=== PATIENT | male | born 1960 | race Caucasian/White ===

== ENCOUNTER 2023-02-16 15:09 | Outpatient (OUT) | payer OTHER, SELFPAY ==
[2023-02-16 16:32] LABS: Prostate Specific Antigen Dx <0.13 ng/mL (<=4.00)
== END 2023-02-16 15:10 | disposition home or self-care (01) ==
LOC: LAB 15:12
PROVIDERS: PCP Family Medicine; Visit Provider Urology
DX: Z85.46 Personal history of malignant neoplasm of prostate (principal)
CPT/HCPCS: 36415; 84153

== ENCOUNTER 2023-11-14 15:26 | Outpatient (OUT) | payer OTHER, SELFPAY ==
--- NOTE | 2023-11-14 15:32 | XR_ITS ---
[facility] [id number] Patient Name: TRINO DELGADO MRN: [id number] date: 1960 Sex: M Assigned Patient Location: [facility] Current Patient Location: Accession/Order Number: [id number] Exam Date: 11/14/2023 15:40 Report Date: 11/15/2023 09:13 At the request of: ANGEL LUIS HOLT Procedure: XR cervical spine 2-3V EXAMINATION: XR cervical spine 2-3V HISTORY: cervical somatic dysfunction M99.01 COMPARISON: No relevant comparison available. FINDINGS: BONES: 2 mm anterolisthesis of C4 on C5. Moderate degenerative spondylosis and facet osteoarthropathy DISC SPACES: Moderate multilevel disc space narrowing most significant C5-C6 PARASPINOUS: Negative. No paraspinous abnormality is seen. OTHER: Negative. XR/XR cervical spine 2-3V IMPRESSION: Degenerative changes most significant C5-C6 Electronically authenticated by: JOSSY GRACE Date: 11/15/2023 09:13
== END 2023-11-14 15:27 | disposition home or self-care (01) ==
LOC: RAD 15:28
PROVIDERS: PCP Family Medicine; Visit Provider Family Medicine
DX: M99.01 Segmental and somatic dysfunction of cervical region (principal); M50.30 Other cervical disc degeneration, unspecified cervical region
CPT/HCPCS: 72040

== ENCOUNTER 2023-12-02 15:38 | Outpatient (OUT) | payer OTHER, SELFPAY ==
[2023-12-02 17:04] LABS: Prostate Specific Antigen Dx <0.13 ng/mL (<=4.00)
== END 2023-12-02 15:39 | disposition home or self-care (01) ==
LOC: LAB 15:38
PROVIDERS: PCP Family Medicine; Visit Provider Urology
DX: Z85.46 Personal history of malignant neoplasm of prostate (principal); Z80.42 Family history of malignant neoplasm of prostate
CPT/HCPCS: 36415; 84153

== ENCOUNTER 2024-08-23 14:35 | Outpatient (OUT) | payer OTHER, SELFPAY ==
--- OUTSIDE RECORDS SUMMARY | 2024-08-23 14:52 | XMS_ITS | CCD ---
Author Organization [facility] CliniSyri Care Team Providers Care Pole Framer Machine Name Role Phone MARCO ANTONIO DENT Primary Care Physician [phone] Sheldon Huff Marco Antonio Dent Primary Care Unavailable Sheldon Huff Attending Unavailable Sheldon Huff Admitting Unavailable Misti Gagnon Attending Unavailable Misti Gagnon Admitting Unavailable Marco Antonio Dent Primary Care Unavailable Jailene, DO Bernard Primary Care Provider MD Sheldon Huff Attending Provider NINO, DR HURLEY Admitting Unavailable CHILDERS, DR HURLEY Attending Unavailable FURLOKELLY, DR MARCO ANTONIO Kinsey Referring Unavailable CHILDERS, DR HURLEY Consulting Unavailable JAILENE, DR MARCO ANTONIO Kinsey Primary Care Unavailable GUERA LE, DR TIARRA Wan Consulting Unavailabl e NINO, DR HURLEY Procedure Practitioner Nila MAN, CARINA Consulting Unavailable MECHELLE, ALBERTINA Consulting Unavailable BECKY BAR Consulting Unavailable NINO, DR HURLEY Admitting Unavailable NINO, DR HURLEY Attending Unavailable CHILDERS, DR HURLEY Consulting Unavailable CHILDERS, DR HURLEY Admitting Unavailable CHILDERS, DR HURLEY Attending Unavailable FURLONG, DR MARCO ANTONIO Kinsey Primary Care Unavailable CHILDERS, DR HURLEY Consulting Unavailable NINO, DR HURLEY Admitting Unavailable CHILDERS, DR HURLEY Attending Unavailable FURSTEFF, DR MARCO ANTONIO Kinsey Primary Care Unavailable CHILDERS, DR HURLEY Consulting Unavailable NINO, DR HURLEY Admitting Unavailable NINO, DR HURLEY Attending Unavailable FURLONG, DR MARCO ANTONIO Kinsey Primary Care Unavailable CHILDERS, DR HURLEY Consulting Unavailable RAPHAELNG, DR MARCO ANTONIO Kinsey Primary Care Unavailable PAY, DR MEDRANO Admitting Unavailable PAY, DR MEDRANO Attending Unavailable PAY, DR MEDRANO Consulting Unavailable HAY, DR MILAN Consulting Unavailable CHILDERS, DR HURLEY Admitting Unavailable CHILDERS, DR HURLEY Attending Unavailable FURLONG, DR MARCO ANTONIO Kinsey Primary Care Unavailable NINO, DR HURLEY Consulting Unavailable STEELE, DR JOSSY Stephen Consulting Unavailable ANTON ALFONSO Consulting Unavailable NINO, DR HURLEY Admitting Unavailable NINO, DR HURLEY Attending Unavailable JAILENE, DR MARCO ANTONIO Kinsey Primary Care Unavailable CHILDERS, DR HURLEY Consulting Unavailable DominguezFide lyons Unavailable Annelise Adame Unavailable Latrell CHILDERS Attending Unavailable NINO, Latrell Ding Attending Unavailable NINO, Latrell Ding Attending Unavailable JAILENE, MARCO ANTONIO Kinsey Attending Unavailable JAILENE, MARCO ANTONIO Kinsey Referring Unavailable JAILENE, MARCO ANTONIO Kinsey Primary Care Un[facility] MARCO ANTONIO Kinsey Attending Unavailable [facility] MARCO ANTONIO Kinsey Referring Unavailable [facility], MARCO ANTONIO Kinsey Primary Care Unavailable Allergies Allergy Classification Reported Allergen(s) Allergy Type Date of Onset Reaction(s) Facility (1 source) Unable to Assess Drug allergy (disorder) [facility] Repository (1 source) No Known Medication Allergies; Translations: [No Known Medication Allergies] Propensity to adverse reactions (disorder) [facility] Repository Medications Current Medications Medication Drug Class(es) Dates Sig (Normalized) Sig (Original) acetaminophen 325 mg oral tablet (12 sources) Start: 04-14-2022 take 2 tablets by mouth every six hours Acetaminophen (Tylenol) 325 mg Tablet Active 650 MG PO Q6H April 14, 2022 12:00am Start: 08-06-2021 take 2 tablets by mo uth every four hours as needed for pain Tylenol 325 mg Tab 650 mg = 2 tab(s), Oral, q4hr, PRN as needed for pain, Refills(s) 0 Start Date: 08/06/21 Status: Ordered ActivOn Joint & Muscle (8 sources) Start: 08-06-2021 ActivOn Joint & Muscle 1 application, Topical, BID Muscle pain, Refill(s) 0 Start Date: 08/06/21 Status: Ordered atorvastatin 10 mg oral tablet (20 sources) HMG-CoA Reductase Inhibitor Start: 06-18-2021 take 1 tablet by mouth once daily atorvastatin 10 mg Tab 10 mg = 1 tab(s), Oral, Daily, Refills(s) 0, High cholesterol Start Date: 06/18/21 Status: Ordered celecoxib 200 mg oral capsule (11 sources) Nonsteroidal Anti-inflammatory Drug Start: 08-06-2021 take 1 capsule by mouth once daily as needed for pain CeleBREX 200 mg Cap 200 mg = 1 cap(s), Oral, Daily, PRN Muscle pain, Refills(s) 0 Start Date: 08/06/21 Status: Ordered cephalexin 500 mg oral capsule (2 sources) Cephalosporin Antibacterial Start: 11-09-2021 take 1 capsule by mouth twice daily Keflex 500 mg Cap 500 mg = 1 cap(s), Oral, BID, # 14 cap(s), Refills(s) 0, Pharmacy: [address], [address], cm, 11/09/21 13:21:00 EDT, Height/Length Dosing, 90, kg, 11/09/21 13:21:00 EDT, Weight Dosing Start Date: 11/09/21 Status: Ordered diclofenac sodium 0.01 mg/mg topical gel (5 sources) Nonsteroidal Anti-inflammatory Drug Voltaren 1 % as directed Externally Active ibuprofen 800 mg oral tablet (1 source) Nonsteroidal Anti-inflammatory Drug Start: 04-13-2022 take 800 mg by mouth every eight hours Ibuprofen Active 800 MG PO Q8H April 13, 2022 12:00am meloxicam 7.5 mg oral tablet (6 sources) Nonsteroidal Anti-inflammatory Drug Start: 04-13-2022 take 7.5 mg by mouth once daily Meloxicam Active 7.5 MG PO Daily April 13, 2022 12:00am ActivOn Joint & Muscle (3 sources) Start: 08-06-2021 ActivOn Joint & Muscle 1 application, Topical, BID Muscle pain, Refill(s) 0 Start Date: 08/06/21 Status: Ordered Multivitamin Adult (5 sources) Multivitamin Bruno lt Active Multivitamin preparation (1 source) Start: 02-21-2023 multivitamin Daily, Refill(s) 0 Start Date: 02/21/23 Status: Ordered Sodium Phosphate, Dibasic / Sodium Phosphate, Monobasic (11 sources) Start: 08-06-2021 take 133 mL rectal route once Fleet Enema 133 mL, Rectal, Once, preop Start Date: 08/06/21 Status: Ordered Vitamin B Complex oral tablet (11 sources) Start: 08-06-2021 take 1 tablet by mouth once daily Vitamin B Complex oral tablet 1 tab(s), Oral, Daily, Prophylaxis Start Date: 08/06/21 Status: Ordered Vitamin C 100 mg oral tablet, chewable (11 sources) Start: 08-06-2021 take 1 capsule by mouth once daily Vitamin C 100 mg oral tablet, chewable 1 cap, Oral, Daily, Prophylaxis Start Date: 08/06/21 Status: Ordered Completed/Discontinued Medications Medication Drug Class(es) Dates Sig (Normalized) Sig (Original) ciprofloxacin 500 mg oral tablet (3 sources) Quinolone Antimicrobial Start: 12-22-2021 take 1 tablet by mouth once daily Cipro 500 mg Tab 500 mg = 1 tab(s), Oral, Daily, Take 1 tablet the day before the procedure and 1 tablet after the procedure, # 2 tab(s), Refills(s) 0, Pharmacy: [address], 182, cm, 11/18/21 10:56:00 EDT, Height/Length Dosing, 90, kg, 11/18/21 10:56:00... Start Date: 12/22/21 Status: Ordered Durolane (6 sources) Start: 03-02-2022 Durolane Mar, 60 mg ergocalciferol 1.25 mg oral capsule (8 sources) Provitamin D2 Compound Start: 08-06-2021 take 1 capsule by mouth once daily Vitamin D 50,000 intl units (1.25 mg) oral capsule 50,000 International_Un it = 1 cap(s), Oral, Daily, Refills(s) 0, Prophylaxis Start Date: 08/06/21 Status: Ordered 12 hr guaiFENesin 600 mg / pseudoephedrine hydrochloride 60 mg extended release oral tablet (2 sources) alpha-Adrenergic Agonist Start: 09-09-2022 take 2 tablets by mouth every twelve hours Pseudoephedrine- guaiFENesin ER 60-600 MG 2 tablets as needed Orally every 12 hrs for 7 days Sep, Not-Taking Naproxen (7 sources) Nonsteroidal Anti-inflammatory Drug Aleve Not-Taking tadalafil 20 mg oral tablet (9 sources) Phosphodiesterase 5 Inhibitor Start: 12-05-2023 take 1 tablet by mouth once daily Cialis 20 mg Tab 20 mg = 1 tab(s), Oral, Daily, take one tab daily 1 hour prior to sexual activity, # 90 tab(s), Refills(s) 3, Pharmacy: [facility] #[id number], 182, cm, 02/21/23 16:45:00 EDT, Height/Length Dosing, 96, kg, 02/21/23 16:45:00 EDT, Weight Dosing Start Date: 12/05/23 Status: Ordered Start: 02-08-2022 take 1 tablet by linda once daily Cialis 20 mg Tab 20 mg = 1 tab(s), Oral, Daily, take one tab daily 1 hour prior to sexual activity, # 90 tab(s), Refills(s) 3, Pharmacy: [facility], 182, cm, 11/18/21 10:56:00 EDT, Height/Length Dosing, 90, kg, 11/18/21 10:56:00 EDT, Weight Dosing Start Date: 02/08/22 Status: Ordered Vitamin D 50,000 intl units (1.25 mg) oral capsule (3 sources) Start: 08-06-2021 take 1 capsule by mouth once daily Vitamin D 50,000 intl units (1.25 mg) oral capsule 50,000 International_Unit = 1 cap(s), Oral, Daily, Refills(s) 0, Prophylaxis Start Date: 08/06/21 Status: Ordered vitamin e 100 unt oral capsule (11 sources) Start: 08-06-2021 take 1 capsule by mouth once daily vitamin E 100 intl units oral capsule 100 International_Unit = 1 cap(s), Oral, Daily, Prophylaxis Start Date: 08/06/21 Status: Ordered Problems Active Problems Problem Classification Problem Date Documented Date Episodic/Chronic Cancer of prostate (20 sources) Malignant tumor of prostate; Translations: [Malignant neoplasm of prostate] Onset: 10-12-2021 10-14-2021 Chronic Cancer of prostate (13 sources) Personal history of malignant neoplasm of prostate; Translations: [History of malignant neoplasm of prostate] Onset: 11-09-2021 Episodic Diabetes mellitus without complication (1 source) Prediabetes; Translations: [Prediabetes] Onset: 07-17-2024 Episodic Disorders of lipid metabolism (14 sources) Hypercholesterolemia; Translations: [Pure hypercholesterolemia, unspecified] Onset: 10-12-2021 08-06-2021 Chronic Genitourinary symptoms and ill-defined conditions (18 sources) Post-micturition incontinence ; Translations: [Stress incontinence (female) (male)] Onset: 02-08-2022 07-16-2021 Chronic Genitourinary symptoms and ill-defined conditions (15 sources) Retention of urine; Translations: [Retention of urine, unspecified] Onset: 12-02-2021 Episodic Hyperplasia of prostate (14 sources) Benign prostatic hypertrophy without outflow obstruction; Translations: [Benign prostatic hyperplasia without lower urinary tract symptoms] Onset: 11-09-2021 Chronic Immunizations and screening for infectious disease (1 source) Contact with and (suspected) exposure to other viral communicable diseases Episodic Osteoarthritis (11 sources) Osteoarthritis of knee; Translations: [Unilateral primary osteoarthritis, left knee] Onset: 01-26-2022 Resolved: 04-20-2022 Chronic Other diseases of bladder and urethra (7 sources) Male urethral stricture; Translations: [Unspecified urethral stricture, male, unspecified site] Onset: 11-11-2021 Episodic Other diseases of bladder and urethra (11 sources) Urethral stricture 11-11-2021 Episodic Other diseases of bladder and urethra (5 sources) Unspecified urethral stricture, male, unspecified site; Translations: [UNSP URETHRAL STRCT MALE UNSP SITE] Onset: 05-15-2022 Episodic Other male genital disorders (5 sources) Male erectile dysfunction, unspecified; Translations: [Erectile dysfunction] Onset: 02-08-2022 Chronic Other male genital disorders (3 sources) Secondary erectile dysfunction 05-17-2022 Chronic Other male genital disorders (12 sources) Atypical small acinar proliferation of prostate 10-14-2021 Episodic Other nervous system disorders (7 sources) Chronic pain; Translations: [Other chronic pain] Chronic Other nervous system disorders (4 sources) Other chronic pain Onset: 01-26-2022 Resolved: 04-20-2022 Chronic Other nervous system disorders (1 source) Other chronic pain; Translations: [Other chronic pain] Onset: 04-14-2022 Chronic Other screening for suspected conditions (not mental disorders or infectious disease) (13 sources) Raised prostate specific antigen; Translations: [Elevated prostate specific antigen [PSA]] Onset: 11-10-2021 07-16-2021 Episodic Other upper respiratory infections (2 sources) Acute pharyngitis, unspecified; Translations: [Acute upper respiratory infection, unspecified] Episodic Residual codes; unclassified (6 sources) Family history of cancer; Translations: [Family history of malignant neoplasm of prostate] Onset: 11-09-2021 Episodic Residual codes; unclassified (12 sources) Family history of prostate cancer 10-14-2021 Episodic Residual codes; unclassified (1 source) Family history of malignant neoplasm of prostate; Translations: [FAMILY HX MALIG NEOPLASM PROSTATE] Onset: 08-17-2022 Episodic Screening and history of mental health and substance abuse codes (12 sources) Tobacco use and exposure - finding 07-16-2021 Chronic Spondylosis; intervertebral disc disorders; other back problems (1 source) Cervical disc disorder, unspecified, unspecified cervical region; Translations: [Cervical disc disorder, unspecified, unspecified cervical region] Onset: 07-17-2024 Chronic Unclassified (1 source) R97.20 - Elevated prostate specific antigen [PSA]; Translations: [R97.20 - Elevated prostate specific antigen [PSA]] Onset: 07-09-2021 Unclassified (1 source) CONTACT W/AND (SUSP) EXPOS COVID-19; Translations: [CONTACT W/AND (SUSP) EXPOS COVID-19] Onset: 10-12-2021 Unclassified (1 source) Annual Exam Onset: 07-17-2024 Past or Other Problems Problem Classification Problem Date Documented Da te Episodic/Chronic Other aftercare (1 source) 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; Translations: [OTH [facility] CURRENT DRUG THERAPY] Onset: 12-03-2021 Episodic Other bone disease and musculoskeletal deformities (1 source) Segmental and somatic dysfunction of cervical region; Translations: [Segmental and somatic dysfunction of cervical region] Onset: 11-14-2023 Episodic Other bone disease and musculoskeletal deformities (1 source) Segmental and somatic dysfunction of thoracic region; Translations: [Segmental and somatic dysfunction of thoracic region] Onset: 11-14-2023 Episodic Other male genital disorders (1 source) Atypical small acinar proliferation of prostate; Translations: [ATYPICAL SMALL ACINAR PROLIF PROS] Onset: 11-10-2021 Episodic Other non-epithelial cancer of skin (1 source) Personal history of other malignant neoplasm of skin; Translations: [PERSONAL HX OTH MALIG NEOPLASM SKIN] Onset: 10-15-2021 Episodic Other non-traumatic joint disorders (3 sources) Pain in left knee Onset: 01-26-2022 Resolved: 04-20-2022 Episodic Screening and history of mental health and substance abuse codes (1 source) Personal history of nicotine dependence; Translations: [PERSONAL HISTORY OF NICOTINE DEPEND] Onset: 12-03-2021 Episodic Spondylosis; intervertebral disc disorders; other back problems (1 source) Neck pain Onset: 11-14-2023 Episodic Unclassified (1 source) Suspected COVID-19 virus infection Z20.822 Viral infection (1 source) COVID-19 Results Test Name Value Interpretation Reference Range Facility Ambulatory Visit Summaryon 0 12-05-2023 Ambulatory Visit Summary ERIC DELGADO :1960 Visit Date:12/05/2023 Ambulatory Visit Instructions Your Diagnosis Personal history of prostate cancer Organic impotence Urethral stricture Family history of prostate cancer Your Care Team Attending Physician - Latrell CHILDERS MD Primary Care Physician - MARCO ANTONIO DENT DO This Is Your Medications List tadalafil (Cialis 20 mg Tab) Contact prescribing physician if questions or concerns atorvastatin (atorvastatin 10 mg Tab) multivitamin Procedures Performed Cystoscopy (11/11/2021), Radical prostatectomy (10/09/2021), Transrectal biopsy of prostate (08/13/2021), Stripping of lower limb varicose veins (08/2019), Colonoscopy (05/2019), Transrectal biopsy of prostate using ultrasound (US) guidance (06/29/2018), Orchiectomy (1979), Excisional biopsy of basal cell carcinoma, History of hernia repair, Injection of knee joint. What to do next Scheduled Follow-Up Appointments Tuesday. 2024 3:00 PM EDT With: Latrell CHILDERS MD Where: [facility] Lab Reportson 12-05-2023 Lab Reports [id number] [facility] Patient Educationon 12-05-19 24 Patient Education Oncology Prostate Cancer Screening Prostate cancer screening is testing that is done to check for the presence of prostate cancer in men. The prostate gland is a walnut-sized gland that is located below the bladder and in front of the rectum in males. The function of the prostate is to add fluid to semen during ejaculation. Prostate cancer is one of the most common types of cancer in men. Who should have prostate cancer screening? Screening recommendations vary based on age and other risk factors, as well as between the professional organizations who make the recommendations. In general, screening is recommended if: ? You are age 50 to 70 and have an average risk for prostate cancer. You should talk with your health care provider about your need for screening and how often screening should be done. Because most prostate cancers are slow growing and will not cause , screening in this age group is generally reserved for men who have a 10- to 15-year life expectancy. ? You are younger than age 50, and you have these risk factors: ? Having a father, brother, or uncle who has been diagnosed with prostate cancer. The risk is higher if your family member's cancer occurred at an early age or if you have multiple family members with prostate cancer at an early age. ? Being a male who is Black or is of [place] or sub-Saharan descent. In general, screening is not recommended if: ? You are younger than age 40. ? You are between the ages of 40 and 49 and you have no risk factors. ? You are 70 years of age or older. At this age, the risks that screening can cause are greater than the benefits that it may provide. If you are at high risk for prostate cancer, your health care provider may recommend that you have screenings more often or that you start screening at a younger age. How is screening for prostate cancer done? The recommended prostate cancer screening test is a blood test called the prostate-specific antigen (PSA) test. PSA is a protein that is made in the prostate. As you age, your prostate naturally produces more PSA. Abnormally high PSA levels may be caused by: ? Prostate cancer. ? An enlarged prostate that is not caused by cancer (benign prostatic hyperplasia, or BPH). This condition is very common in older men. ? A prostate gland infection (prostatitis) or urinary tract infection. ? Certain medicines such as male hormones (like testosterone) or other medicines that raise testosterone levels. A rectal exam may be done as part of prostate cancer screening to help provide information about the size of your prostate gland. When a rectal exam is performed, it should be done after the PSA level is drawn to avoid any effect on the results. Depending on the PSA results, you may need more tests, such as: ? A physical exam to check the size of your prostate gland, if not done as part of screening. ? Blood and imaging tests. ? A procedure to remove tissue samples from your prostate gland for testing (biopsy). This is the only way to know for certain if you have prostate cancer. What are the benefits of prostate cancer screening? ? Screening can help to identify cancer at an early stage, before symptoms start and when the cancer can be treated more easily. ? There is a small chance that screening may lower your risk of dying from prostate cancer. The chance is small because prostate cancer is a slow-growing cancer, and most men with prostate cancer from a different cause. What are the risks of prostate cancer screening? The main risk of prostate cancer screening is diagnosing and treating prostate cancer that would never have caused any symptoms or problems. This is called overdiagnosisand overtreatment. PSA screening cannot tell you if your PSA is high due to cancer or a different cause. A prostate biopsy is the only procedure to diagnose prostate cancer. Even the results of a biopsy may not tell you if your cancer needs to be treated. Slow-growing prostate cancer may not need any treatment other than monitoring, so diagnosing and treating it may cause unnecessary stress or other side effects. Questions to ask your health care provider ? When should I start prostate cancer screening? ? What is my risk for prostate cancer? ? How often do I need screening? ? What type of screening tests do I need? ? How do I get my test results? ? What do my results mean? ? Do I need treatment? Where to find more information ? The [employer]: www.cancer.org ? [employer]: www.auanet.org Contact a health care provider if: ? You have difficulty urinating. ? You have pain when you urinate or ejaculate. ? You have blood in your urine or semen. ? You have pain in your back or in the area of your prostate. Summary ? Prostate cancer is a common type of cancer in men. The prostate gland is located below the bladder and in front of the rectum. This gland adds flu (more content not included)... Normal [facility] Urology Office/Clinic Noteon 12-05-2023 Urology Office/Clinic Note Chief Complaint 6 months w/ PSA HPI Staff 6m PSA DX: Personal Hx of Prostate Cancer, Organic Impotence, Urethral Stricture, Proteinuria, Family Hx of Prostate Cancer (brother) PSA: 12/31/19 - 4.12 06/03/21 - 5.28 11/05/21 - <0.05 05/13/22 - <0.13 08/11/22 - <0.13 02/16/23 - <0.13 12/02/23 - <0.13 S/p Radical Prostatectomy was done 10/09/21. Cialis 20mg qd. Pt states that he has not been taking this recently Dysuria: no Incomplete bladder emptying: pt feels he is emptying well Hematuria: no Frequency: no Urgency: no Nocturia: 0-1x Stream: good steady stream Leaking: very little Post void dripping: very little Wearing pads/ Depends: wears a pantyliner and does not have to change all day Urge incontinence: no Stress incontinence: no Incontinence without Sensory Awareness: no Abdominal pain: no Flank pain: back pain but believes it is muscular Sexual complaints: no History of Present Illness Tests reviewed: reviewed UA, PSA I have reviewed the previous health record information and history for this patient from Dr. Childers. I have reviewed and verified the staff HPI to be accurate for this encounter. Review of Systems ROS - Provider Constitutional: denies weight loss, denies hot flashes. Eyes: denies eye problems. Gastrointestinal: denies nausea, denies vomiting. Cardiovascular: denies chest pain or angina. Integumentary: no dryness Musculoskeletal: denies musculoskeletal symptoms. ENMT: denies otolaryngeal symptoms. Respiratory: no shortness of breath. Heme/Lymph: denies easy bleeding tendency, denies easy bruising tendency. Psychiatric: no confusion, no anxiety. Genitourinary: See HPI. Physical Exam General Appearance: alert, no distress, well nourished, well developed male. Genitourinary: normal scrotum, normal testes, normal urethra, normal epididymis, normal vas deferens/spermatic cord. Flank Pain: none. Bladder: nonpalpable. Assessment/Plan 1. Personal history of prostate cancer (Z85.46: Personal history of malignant neoplasm of prostate) PSA: 12/31/19 - 4.12 06/03/21 - 5.28 11/05/21 - <0.05 05/13/22 - <0.13 08/11/22 - <0.13 02/16/23 - <0.13 12/02/23 - <0.13 S/p Radical Prostatectomy 10/09/[address] Childers. UA today negative for blood and infection. Wears a liner just for protection. Not voicing any urinary habit complaints. PSA remains stable and undetectable. Will continue to monitor. 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 Not sexually active. -Take Cialis prn 3. Urethral stricture (N35.919: Unspecified urethral stricture, male, unspecified site) S/p Cysto/UD 12/02/21. 4. Family history of prostate cancer (Z80.42: Family history of malignant neoplasm of prostate) Brother. [1] Follow-up With When Contact Information NINO BARKLEY, Latrell Ding, URL [facility] [address], [place] [address] [phone] Additional Instructions: 1 yr w/ PSA Patient Education Prostate Cancer Screening I, Miya Cueva, personally scribed for Dr. Childers on 12/05/2023 16:04:19. . Documentation recorded by the scribe, Miya Cueva, accurately reflects the services(s) I performed and decisions made by me. Authenticated by Dr. Childers on 12/05/2023 16:05:55. Problem List/Past Medical History Ongoing Atypical small acinar proliferation of prostate BPH without urinary obstruction Elevated PSA Family history of prostate cancer High blood cholesterol Hx of smoking Organic impotence Personal history of prostate cancer Post-void dribbling Prostate cancer Proteinuria Stress incontinence Urethral stricture Urinary retention Historical No qualifying data Procedure/Surgical History Cystoscopy (11/11/2021), Radical prostatectomy (10/09/2021), Transrectal biopsy of prostate (08/13/2021), Stripping of lower limb varicose veins (08/2019), Colonoscopy (05/2019), Transrectal biopsy of prostate using ultrasound (US) guidance (06/29/2018), Orchiectomy (1979), Excisional biopsy of basal cell carcinoma, History of hernia repair, Injection of knee joint. Medications atorvastatin 10 mg Tab, 10 mg= 1 tab(s), Oral, Daily Cialis 20 mg Tab, 20 mg= 1 tab(s), Oral, Daily, 3 refills multivitamin, Daily Allergies No Known Medication Allergies Social History Alcohol - High Risk, 08/06/2021 Current, Beer, Daily, 08/06/2021 Substance Abuse - Medium Risk, 08/06/2021 Current, Marijuana, 1-2 times per week, 08/06/2021 Tobacco - Denies Tobacco Use, 08/06/2021 Former smoker, quit more than 30 days ago Tobacco Use:. Never Smokeless Tobacco Use:. Household tobacco concerns: No., 12/05/2023 Family History Cancer: Father. Primary malignant neoplasm of prostate: Brother. Stroke: Mother. Immunizations Vaccine Date Status influenza virus vaccine (more content not included)... [facility] Comment on above: Result Comment: Elec tronically Signed By: Latrell CHILDERS MD\.br\Date and Time Signed: 12/05/23 16:06 EDT\.br\Electronically Co-Signed By: Miya Cueva\.br\Date and Time Co-Signed: 12/05/23 16:04 EDT COVID + FLU Quick Testingon 07-04-2023 SARS-CoV-2 (COVID-19) RNA SIENNA+probe Ql (Unsp spec) Positive [facility] [employer] Other COVID + FLU Quick Testing Negative [facility] Other Patient Educationon 02-22-20 23 Patient Education Oncology Prostate Cancer The prostate is a small gland that produces fluid that makes up semen (seminal fluid). It is located below the bladder in men, in front of the rectum. Prostate cancer is the abnormal growth of cells in the prostate gland. What are the causes? The exact cause of this condition is not known. What increases the risk? You are more likely to develop this condition if: ? You are 65 years of age or older. ? You have a family history of prostate cancer. ? You have a family history of breast and ovarian cancer. ? You have genes that are passed from parent to child (inherited), such as BRCA1 and BRCA2. ? You have Henning syndrome. men and men of descent are diagnosed with prostate cancer at higher rates than other men. The reasons for this are not well understood and are likely due to a combination of genetic and environmental factors. What are the signs or symptoms? Symptoms of this condition include: ? Problems with urination. This may include: ? A weak or interrupted flow of urine. ? Trouble starting or stopping urination. ? Trouble emptying the bladder all the way. ? The need to urinate more often, especially at night. ? Blood in urine or semen. ? Persistent pain or discomfort in the lower back, lower abdomen, or hips. ? Trouble getting an erection. ? Weakness or numbness in the legs or feet. How is this diagnosed? This condition can be diagnosed with: ? A digital rectal exam. For this exam, a health care provider inserts a gloved finger into the rectum to feel the prostate gland. ? A blood test called a prostate-specific antigen (PSA) test. ? A procedure in which a sample of tissue is taken from the prostate and checked under a microscope (prostate biopsy). ? An imaging test called transrectal ultrasonography. Once the condition is diagnosed, tests will be done to determine how far the cancer has spread. This is called staging the cancer. Staging may involve imaging tests, such as a bone scan, CT scan, PET scan, or MRI. Stages of prostate cancer The stages of prostate cancer are as follows: ? Stage 1 (I). At this stage, the cancer is found in the prostate only. The cancer is not visible on imaging tests, and it is usually found by accident, such as during prostate surgery. ? Stage 2 (II). At this stage, the cancer is more advanced than it is in stage 1, but the cancer has not spread outside the prostate. ? Stage 3 (III). At this stage, the cancer has spread beyond the outer layer of the prostate to nearby tissues. The cancer may be found in the seminal vesicles, which are near the bladder and the prostate. ? Stage 4 (IV). At this stage, the cancer has spread to other parts of the body, such as the lymph nodes, bones, bladder, rectum, liver, or lungs. Prostate cancer grading Prostate cancer is also graded according to how the cancer cells look under a microscope. This is called the Constable score and the total score can range from 6?10, indicating how likely it is that the cancer will spread (metastasize) to other parts of the body. The higher the score, the greater the likelihood that the cancer will spread. ? Constable 6 or lower: This indicates that the cancer cells look similar to normal prostate cells (well differentiated). ? Constable 7: This indicates that the cancer cells look somewhat similar to normal prostate cells (moderately differentiated). ? Constable 8, 9, or 10: This indicates that the cancer cells look very different than normal prostate cells (poorly differentiated). How is this treated? Treatment for this condition depends on several factors, including the stage of the cancer, your age, personal preferences, and your overall health. Talk with your health care provider about treatment options that are recommended for you. Common treatments include: ? Observation for early stage prostate cancer (active surveillance). This involves having exams, blood tests, and in some cases, more biopsies. For some men, this is the only treatment needed. ? Surgery. Types of surgeries include: ? Open surgery (radical prostatectomy). In this surgery, a larger incision is made to remove the prostate. ? A laparoscopic radical prostatectomy. This is a surgery to remove the prostate and lymph nodes through several small incisions. It is often referred to as a minimally invasive surgery. ? A robotic radical prostatectomy. This is laparoscopic surgery to remove the prostate and lymph nodes with the help of robotic arms that are controlled by the surgeon. ? Cryoablation. This is surgery to freeze and destroy cancer cells. ? Radiation treatment. Types of radiation treatment include: ? External beam radiation. This type aims beams of radiation from outside the body at the prostate to destroy cancerous cells. ? Brachytherapy. This type uses radioactive needles, seeds, wires, or tubes that are implanted into the prostate gland. Like external be (more content not included)... [facility] Urology Office/Clinic Noteon 02-21-2023 Urology Office/Clinic Note Chief Complaint 6m PSA HPI Staff 6m PSA Hx of Prostate Cancer, Organic Impotence, Urethral Stricture & Fam Hx of Prostate Cancer (brother). S/P Radical Prostatectomy 10/09/21 *Cialis 20mg QD therapy. PSA 02/16/23- <0.13 Getting up 1x/night Denies all other urinary complaints. History of Present Illness Tests reviewed: reviewed UA, PSA I have reviewed the previous health record information and history for this patient from Dr. Childers. I have reviewed and verified the staff HPI to be accurate for this encounter. There have been no associated fever, chills, flank pain, or blood in the urine. Denies any urinary infections since last encounter. Review of Systems PHQ Score Initial Depression Screen Score: 0 ROS - Provider Constitutional: denies weight loss, denies hot flashes. Eyes: denies eye problems. Gastrointestinal: denies nausea, denies vomiting. Cardiovascular: denies chest pain or angina. Integumentary: no dryness Musculoskeletal: denies musculoskeletal symptoms. ENMT: denies otolaryngeal symptoms. Respiratory: no shortness of breath. Heme/Lymph: denies easy bleeding tendency, denies easy bruising tendency. Psychiatric: no confusion, no anxiety. Genitourinary: See HPI. Physical Exam Vitals & Measurements HR: 72(Peripheral) RR: 16 BP: 130/76 HT: 72 in HT: 182 cm WT: 96 kg WT: 211.2 lb BMI: 28.98 General Appearance: alert, no distress, well nourished, well developed male. Genitourinary: normal scrotum, normal testes, normal urethra, normal epididymis, normal vas deferens/spermatic cord. Flank Pain: none. Bladder: nonpalpable. Assessment/Plan 1. Personal history of prostate cancer (Z85.46: Personal history of malignant neoplasm of prostate) PSA: 12/31/19 - 4.12 06/03/21 - 5.28 11/05/21 - <0.05 05/13/22 - <0.13 08/11/22 - <0.13 02/16/23 - <0.13 S/p Radical Prostatectomy was done 10/09/21. Will continue to monitor PSA every 6 months. 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 Reports his work life has kept him too busy and he is not concerned with sexual activity. 3. Urethral stricture (N35.919: Unspecified urethral stricture, male, unspecified site) S/p Cysto/UD done 12/02/21. UA today negative for blood and infection. Still feels he empties completely. Pt states he continues wearing pads as a precautionary measure but has not really needed them. All questions/concerns were discussed. Pt to call the office if he encounters any issues prior. Pt acknowledges understanding. 4. Family history of prostate cancer (Z80.42: Family history of malignant neoplasm of prostate) Brother. [1] 5. Proteinuria (R80.9: Proteinuria, unspecified) UA today shows 30mg/dL protein. Follow-up With When Contact Information NINO BARKLEY, Latrell Ding, [facility] [address], [place] [address] [phone] Additional Instructions: 6 mos w/ PSA Patient Education Prostate Cancer I, Miya Cueva, personally scribed for Dr. Childers on 02/21/2023 17:48:09. . Documentation recorded by the scribe, Miya Cueva, accurately reflects the services(s) I performed and decisions made by me. Authenticated by Dr. Cihlders on 02/21/2023 17:49:43. Problem List/Past Medical History Ongoing Atypical small acinar proliferation of prostate BPH without urinary obstruction Elevated PSA Family history of prostate cancer High blood cholesterol Hx of smoking Organic impotence Personal history of prostate cancer Post-void dribbling Prostate cancer Proteinuria Stress incontinence Urethral stricture Urinary retention Historical No qualifying data Procedure/Surgical History Cystoscopy (11/11/2021), Radical prostatectomy (10/09/2021), Transrectal biopsy of prostate (08/13/2021), Stripping of lower limb varicose veins (08/2019), Colonoscopy (05/2019), Transrectal biopsy of prostate using ultrasound (US) guidance (06/29/2018), Orchiectomy (1979), History of hernia repair, Injection of knee joint. Medications atorvastatin 10 mg Tab, 10 mg= 1 tab(s), Oral, Daily Cialis 20 mg Tab, 20 mg= 1 tab(s), Oral, Daily, 3 refills multivitamin, Daily Allergies No Known Medication Allergies Social History Alcohol - High Risk, 08/06/2021 Current, Beer, Daily, 08/06/2021 Substance Abuse - Medium Risk, 08/06/2021 Current, Marijuana, 1-2 times per week, 08/06/2021 Tobacco - Denies Tobacco Use, 08/06/2021 Former smoker, quit more than 30 days ago Tobacco Use:. Never Smokeless Tobacco Use:. Household tobacco concerns: No., 02/21/2023 Family History Cancer: Father. Primary malignant neoplasm of prostate: Brother. Stroke: Mother. Immunizations Vaccine Date Status influenza virus vaccine, inactivated 05/20/2022 Recorded SARS-CoV-2 (COVID-19) mRNA-1273 vaccine 07/06/2021 Recorded SARS-CoV-2 (COVID-19) Ad26 vaccine 07/2021 Recorded influenza virus vacci (more content not included)... [facility] Comment on above: Result Comment: Elec tronically Signed By: Latrell CHILDERS MD\.br\Date and Time Signed: 02/21/23 17:49 EDT\.br\Electronically Co-Signed By: Miya Cueva\.br\Date and Time Co-Signed: 02/21/23 17:48 EDT Lab Report[facility] 02-18-2023 Lab Reports [id number] [facility] COVID + FLU Quick Testingon 09-09-2022 SARS-CoV-2 (COVID-19) RNA SIENNA+probe Ql (Unsp spec) Negative [facility] [employer] Other COVID + FLU Quick Testing Negative [facility] [employer] Other Quick Strepon 09-09-2022 S. pyogenes Org specific cx Ql (Throat) Negative [facility] [employer] Other Quick Strep [facility] [employer] Other COMPREHENSIVE METABOLIC PANE [facility] 12-10-2021 Albumin [Mass/Vol] 4.4 g/dL Normal 3.6-5.1 [facility] Comment on above: Performed By: #### 7 917, [id number] #### [facility] [address], [address] [place] [id number] International Sourcing Manager: Felipe Miranda MD Albumin/Globulin [Mass ratio] 2.2 {ratio} Normal 1.0-2.5 [facility] Comment on above: Performed By: #### 7 484, 35235 #### [facility] of [place] [address] International Sourcing Manager: Felipe Miranda MD ALP [Catalytic activity/Vol] 52 U/L Normal 35-144 [facility] Comment on above: Performed By: #### 7 600, 10889 #### [facility] of [address], [address] [place] [address] International Sourcing Manager: Felipe Miranda MD ALT [Catalytic activity/Vol] 13 U/L Normal 9-46 [facility] Comment on above: Performed By: #### 7 600, 11437 #### [facility] [place] [address] International Sourcing Manager: Felipe Miranda MD AST [Catalytic activity/Vol] 18 U/L Normal 10-35 [facility] Comment on above: Performed By: #### 7 600, 64008 #### [facility] [place] [address] International Sourcing Manager: Felipe Miranda MD Bilirubin [Mass/Vol] 0.9 mg/dL Normal 0.2-1.2 [facility] Comment on above: Performed By: #### 7 600, 91371 #### [facility] [place] [address] International Sourcing Manager: Felipe Miranda MD BUN/CREATININE RATIO NOT APPLICABLE Normal 6-22 [facility] Comment on above: Performed By: #### 7 600, 61731 #### [facility] [place] [address] International Sourcing Manager: Felipe Miranda MD Calcium [Mass/Vol] 9.4 mg/dL Normal 8.6-10.3 [facility] Comment on above: Performed By: #### 7 600, 96041 #### [facility] [place] [address] International Sourcing Manager: Felipe Miranda MD Chloride [Moles/Vol] 108 mmol/L Normal 98-110 [facility] Comment on above: Performed By: #### 7 600, 05030 #### [facility] [place] [address] International Sourcing Manager: Felipe Miranda MD CO2 [Moles/Vol] 28 mmol/L Normal 20-32 [facility] Comment on above: Performed By: #### 7 600, 78048 #### [facility] [place] [address] International Sourcing Manager: Felipe Miranda MD Creatinine [Mass/Vol] 0.88 mg/dL Normal 0.70-1.33 [facility] Comment on above: Result Comment: For patients >49 years of age, the reference limit for Creatinine is approximately 13% higher for people identified as -Welsh. Performed By: #### 7 600, 24416 #### [facility] [place] [address] International Sourcing Manager: Felipe Miranda MD eGFR NON-AFR. GREEK 95 mL/min/1.73m2 Normal > OR = 60 [facility] Comment on above: Performed By: #### 7 600, 97198 #### [facility] [place] [address] International Sourcing Manager: Felipe Miranda MD GFR/1.73 sq M.predicted among blacks MDRD (S/P/Bld) [Vol rate/Area] 110 mL/min/{1.73_m2} Normal > OR = 60 [facility] Comment on above: Performed By: #### 7 600, 10861 #### [facility] [place] [address] International Sourcing Manager: Felipe Miranda MD Globulin (S) [Mass/Vol] 2.0 g/dL Normal 1.9-3.7 [facility] Comment on above: Performed By: #### 7 600, 59624 #### [facility] [place] [address] International Sourcing Manager: Felipe Miranda MD Glucose [Mass/Vol] 99 mg/dL Normal 65-99 [facility] Comment on above: Result Comment: Fasting reference interval Performed By: #### 7 600, 98598 #### [facility] of [address], [address] [place] [address] International Sourcing Manager: Felipe Miranda MD Potassium [Moles/Vol] 5.5 mmol/L High 3.5-5.3 [facility] Comment on above: Performed By: #### 7 600, 58428 #### [facility] of [address], [address] [place] [address] International Sourcing Manager: Felipe Miranda MD Protein [Mass/Vol] 6.4 g/dL Normal 6.1-8.1 [facility] Comment on above: Performed By: #### 7 600, 13512 #### [facility] of [address], [address] [place] [address] International Sourcing Manager: Felipe Miranda MD Sodium [Moles/Vol] 142 mmol/L Normal 135-146 [facility] Comment on above: Performed By: #### 7 600, 12567 #### [facility] of [address], [address] [place] [address] International Sourcing Manager: Felipe Miranda MD Urea nitrogen [Mass/Vol] 14 mg/dL Normal 7-25 [facility] Comment on above: Performed By: #### 7 600, 51984 #### [facility] [place] [address] International Sourcing Manager: Felipe Miranda MD LIPID PANEL, [facility] 11-29 Cholesterol [Mass/Vol] 106 mg/dL Normal <200 [facility] Comment on above: Performed By: #### 7 600, 26817 #### [facility] of [address], [address] [place] [address] International Sourcing Manager: Felipe Miranda MD Cholesterol in HDL [Mass/Vol] 43 mg/dL Normal > OR = 40 [facility] Comment on above: Performed By: #### 7 600, 79506 #### [facility] of [address], [address] [place] [address] International Sourcing Manager: Felipe Miranda MD Cholesterol in LDL [Mass/Vol] 48 mg/dL Normal [facility] Comment on above: Result Comment: Refe rence range: <100 Desirable range <100 mg/dL for primary prevention; <70 mg/dL for patients with CHD or diabetic patients with > or = 2 CHD risk factors. LDL-C is now calculated using the Gris calculation, which is a validated novel method providing better accuracy than the Friedewald equation in the estimation of LDL-C. Georgi SS et al. AMELIE. 2013;310(19): 6240-6903 (http://education.[employer]/faq/FFA562) Performed By: #### 7 600, 72836 #### [facility] [place] [address] International Sourcing Manager: Felipe Miranda MD Cholesterol.total/C holesterol in HDL [Mass ratio] 2.5 {ratio} Normal <5.0 [facility] Comment on above: Performed By: #### 7 600, 32840 #### [facility] [place] [address] International Sourcing Manager: Felipe Miranda MD NON HDL CHOLESTEROL 63 mg/dL (calc) Normal <130 [facility] Comment on above: Result Comment: For patients with diabetes plus 1 major ASCVD risk factor, treating to a non-HDL-C goal of <100 mg/dL (LDL-C of <70 mg/dL) is considered a therapeutic option. Performed By: #### 7 600, 10507 #### [facility] [address], [address] [place] [address] International Sourcing Manager: Felipe Miranda MD Triglyceride [Mass/Vol] 70 mg/dL Normal <150 [facility] Comment on above: Performed By: #### 7 600, 44486 #### [facility] [place] [address] International Sourcing Manager: Felipe Miranda MD PRBC LEUKOREDUCEDon 10-12-19 ABO and Rh group Nom (Bld) Cross Match Result Compatible Unit Blood Type O Pos Unit Number [id number] Status Information Released Specimen Exp Date [id number] Product ID Red Blood Cells Product Code [id number] Cross Match Result Compatible Unit Blood Type O Pos Unit Number [id number] Status Information Released Specimen Exp Date Product ID Red Blood Cells Product Code [id number] Normal [facility] Comment on above: Performed By: #### C BC #### [facility] [address] [place] [address] Dr. Florina Humphrey CBC AUTO DIFFon 10-10-2021 BASO # 0.0 103/ul Normal 0.0-0.1 [facility] Comment on above: Performed By: #### C BC #### [facility] [address] [place] [address] Dr. Florina Humphrey Basophils/100 WBC (Bld) 0.1 % Critically low 0.2-2.0 [facility] Comment on above: Performed By: #### C BC #### [facility] [address] [place] [address] Dr. Florina Humphrey EO # 0.0 103/ul Normal 0.0-0.7 [facility] Comment on above: Performed By: #### C BC #### [facility] [address] [place] [address] Dr. Florina Humphrey Eosinophils/100 WBC (Bld) 0.0 % Critically low 0.9-7.0 [facility] Comment on above: Performed By: #### C BC #### [facility] [address] [place] [address] Dr. Florina Humphrey Erythrocyte distribution width (RBC) [Ratio] 12.5 % Normal 11.0-15.0 [facility] Comment on above: Performed By: #### C BC #### [facility] [address] [place] [address] Dr. Florina Humphrey Hematocrit (Bld) [Volume fraction] 25.6 % Critically low 42.0-54.0 [facility] Comment on above: Performed By: #### C BC #### [facility] [address] [place] [address] Dr. Florina Humphrey Hemoglobin (Bld) [Mass/Vol] 8.7 g/dL Critically low 14.0-18.0 [facility] Comment on above: Result Comment: flui ds given Performed By: #### C BC #### [facility] [address] [place] [address] Dr. Florina Humphrey IG # 0.02 10e3/ul Normal 0.00-0.03 [facility] Comment on above: Performed By: #### C BC #### [facility] [address] [place] [address] Dr. Florina Humphrey IG % 0.2 % Normal 0.0-0.5 [facility] Comment on above: Performed By: #### C BC #### [facility] [address] [place] [address] Dr. Florina Humphrey LYMPH # 0.8 103/ul Critically low 1.2-3.8 [facility] Comment on above: Performed By: #### C BC #### [facility] [address] [place] [address] Dr. Florina Humphrey Lymphocytes/100 WBC (Bld) 9.4 % Critically low 20.5-60.0 [facility] Comment on above: Performed By: #### C BC #### [facility] [address] [place] [address] Dr. Florina Humphrey MANUAL DIFF REQ NO Normal [facility] Comment on above: Performed By: #### C BC #### [facility] [address] [place] [address] Dr. Florina Humphrey MCH (RBC) [Entitic mass] 32.1 pg Normal 25.9-34.0 [facility] Comment on above: Performed By: #### C BC #### [facility] [address] [place] [address] Dr. Florina Humphrey MCHC (RBC) [Mass/Vol] 34.0 g/dL Normal 29.9-35.2 [facility] Comment on above: Performed By: #### C BC #### [facility] [address] [place] [address] Dr. Florina Humphrey MCV (RBC) [Entitic vol] 94.5 fL Critically high 80.0-94.0 [facility] Comment on above: Performed By: #### C BC #### [facility] [address] [address] [address] Florina Humphrey MONO # 0.7 103/ul Normal 0.3-0.8 [facility] Comment on above: Performed By: #### C BC #### [facility] [address] [place] [address] [address] Florina Humphrey Monocytes/100 WBC (Bld) 8.3 % Normal 1.7-12.0 [facility] Comment on above: Performed By: #### C BC #### [facility] [address] [place] [address] Dr. Florina Humphrey NEUT # 6.9 103/ul Critically high 1.4-6.5 The [facility] Comment on above: Performed By: #### C BC #### [facility] [address] [place] [address] Dr. Florina Humphrey Neutrophils/100 WBC (Bld) 82.0 % Critically high 43.0-75.0 [facility] Comment on above: Performed By: #### C BC #### [facility] [address] [place] [address] Dr. Florina Humphrey Platelet mean volume (Bld) [Entitic vol] 10.8 fL Normal 9.5-13.5 [facility] Comment on above: Performed By: #### C BC #### [facility] [address] [place] [address] Dr. Florina Humphrey PLT 191 103/ul Normal 150-450 The [facility] Comment on above: Performed By: #### C BC #### [facility] [address] [place] [address] Dr. Florina Humphrey RBC 2.71 106/ul Critically low 4.70-6.10 The [facility] Comment on above: Performed By: #### C BC #### [facility] [address] [place] [address] Dr. Florina Humphrey WBC 8.4 103/ul Normal 4.0-11.0 The [facility] Comment on above: Performed By: #### C BC #### [facility] [address] [address] [address] Florina Humphrey PROF CHEM 8 (BAS METB)on Anion gap [Moles/Vol] 7.5 mmol/L Normal [facility] Comment on above: Performed By: #### C BC #### [facility] [address] [address] [address] Florina Humphrey Calcium [Mass/Vol] 6.8 mg/dL Critically low 8.4-10.2 Th [facility] Comment on above: Performed By: #### C BC #### [facility] [address] [address] [address] Florina Humphrey Chloride [Moles/Vol] 109 mmol/L Critically high 98-107 [facility] Comment on above: Performed By: #### C BC #### [facility] [address] [place] [address] Dr. Florina Humphrey CO2 [Moles/Vol] 25.7 mmol/L Normal 22.0-30.0 [facility] Comment on above: Performed By: #### C BC #### [facility] [address] [place] [address] Dr. Florina Humphrey Creatinine [Mass/Vol] 0.92 mg/dL Normal 0.66-1.25 [facility] Comment on above: Performed By: #### C BC #### [facility] [address] [place] [address] Dr. Florina Humphrey EGFR-AF GREEK >60 Normal >=60 [facility] Comment on above: Performed By: #### C BC #### [facility] [address] [address] [address] Florina Humphrey EGFR-NON AF GREEK >60 Normal >=60 [facility] Comment on above: Performed By: #### C BC #### [facility] [address] [address] [address] Florina Humphrey Glucose [Mass/Vol] 130 mg/dL Critically high 74-106 [facility] Comment on above: Performed By: #### C BC #### [facility] [address] [place] [address] Dr. Florina Humphrey Potassium [Moles/Vol] 4.2 mmol/L Normal 3.4-5.0 [facility] Comment on above: Performed By: #### C BC #### [facility] [address] [place] [address] Dr. Florina Humphrey Sodium [Moles/Vol] 138 mmol/L Normal 137-145 [facility] Comment on above: Performed By: #### C BC #### [facility] [address] [place] [address] Dr. Florina Humphrey Urea nitrogen [Mass/Vol] 17.0 mg/dL Normal 9.0-20.0 [facility] Comment on above: Performed By: #### C BC #### [facility] [address] [place] [address] Dr. Florina Humphrey Urea nitrogen/Creatinine [Mass ratio] 18.5 mg/mg Normal [facility] Comment on above: Performed By: #### C BC #### [facility] [address] [place] [address] Dr. Florina Humphrey CBC AUTO DIFFon 10-09-2021 BASO # 0.0 103/ul Normal 0.0-0.1 [facility] Comment on above: Performed By: #### C BC #### [facility] [address] [place] [address] Dr. Florina Humphrey Basophils/100 WBC (Bld) 0.3 % Normal 0.2-2.0 [facility] Comment on above: Performed By: #### C BC #### [facility] [address] [place] [address] Dr. Florina Humphrey EO # 0.0 103/ul Normal 0.0-0.7 [facility] Comment on above: Performed By: #### C BC #### [facility] [address] [place] [address] Dr. Florina Humphrey Eosinophils/100 WBC (Bld) 0.0 % Critically low 0.9-7.0 The [facility] Comment on above: Performed By: #### C BC #### [facility] [address] [place] [address] Dr. Florina Humphrey Erythrocyte distribution width (RBC) [Ratio] 12.5 % Normal 11.0-15.0 [facility] Comment on above: Performed By: #### C BC #### [facility] [address] [place] [address] Dr. Florina Humphrey Hematocrit (Bld) [Volume fraction] 32.6 % Critically low 42.0-54.0 [facility] Comment on above: Performed By: #### C BC #### [facility] [address] [place] [address] Dr. Florina Humphrey Hemoglobin (Bld) [Mass/Vol] 11.0 g/dL Critically low 14.0-18.0 [facility] Comment on above: Performed By: #### C BC #### [facility] [address] [place] [address] Dr. Florina Humphrey IG # 0.07 10e3/ul Critically high 0.00-0.03 [facility] Comment on above: Performed By: #### C BC #### [facility] [address] [place] [address] Dr. Florina Humphrey IG % 0.5 % Normal 0.0-0.5 [facility] Comment on above: Performed By: #### C BC #### [facility] [address] [place] [address] Dr. Florina Humphrey LYMPH # 0.8 103/ul Critically low 1.2-3.8 The [facility] Comment on above: Performed By: #### C BC #### [facility] [address] [place] [address] Dr. Florina Humphrey Lymphocytes/100 WBC (Bld) 5.9 % Critically low 20.5-60.0 [facility] Comment on above: Performed By: #### C BC #### [facility] [address] [place] [address] Dr. Florina Humphrey MANUAL DIFF REQ NO Normal [facility] Comment on above: Performed By: #### C BC #### [facility] [address] [place], [place] [id number] Dr. Florina Humphrey MCH (RBC) [Entitic mass] 32.4 pg Normal 25.9-34.0 The [facility] Comment on above: Performed By: #### C BC #### [facility] [address] [place] [address] Dr. Florina Humphrey MCHC (RBC) [Mass/Vol] 33.7 g/dL Normal 29.9-35.2 The [facility] Comment on above: Performed By: #### C BC #### [facility] [address] [place] [address] Dr. Florina Humphrey MCV (RBC) [Entitic vol] 96.2 fL Critically high 80.0-94.0 The [facility] Comment on above: Performed By: #### C BC #### [facility] [address] [place] [address] Dr. Florina Humphrey MONO # 0.2 103/ul Critically low 0.3-0.8 The [facility] Comment on above: Performed By: #### C BC #### [facility] [address] [place] [address] Dr. Florina Humphrey Monocytes/100 WBC (Bld) 1.5 % Critically low 1.7-12.0 The [facility] Comment on above: Performed By: #### C BC #### [facility] [address] [place] [address] Dr. Florina Humphrey NEUT # 11.8 103/ul Critically high 1.4-6.5 [facility] Comment on above: Performed By: #### C BC #### [facility] [address] [place] [address] Dr. Florina Humphrey Neutrophils/100 WBC (Bld) 91.8 % Critically high 43.0-75.0 The [facility] Comment on above: Performed By: #### C BC #### [facility] [address] [place] [address] Dr. Florina Humphrey Platelet mean volume (Bld) [Entitic vol] 11.2 fL Normal 9.5-13.5 The [facility] Comment on above: Performed By: #### C BC #### [facility] [address] [address] [address] Florina Humphrey PLT 239 103/ul Normal 150-450 [facility] Comment on above: Performed By: #### C BC #### [facility] [address] [place] [address] Dr. Florina Humphrey RBC 3.39 106/ul Critically low 4.70-6.[address] [facility] Comment on above: Performed By: #### C BC #### [facility] [address] [address] [address] Florina Humphrey WBC 12.8 103/ul Critically high 4.0-11.0 [facility] Comment on above: Performed By: #### C BC #### [facility] [address] [place] [address] Dr. Florina Humphrey PROF CHEM 8 (BAS METB)on Anion gap [Moles/Vol] 12.1 mmol/L Normal [facility] Comment on above: Performed By: #### B MP #### [facility] [address] [place] [address] Dr. Florina Humphrey Calcium [Mass/Vol] 7.3 mg/dL Critically low 8.4-10.2 Th [facility] Comment on above: Performed By: #### B MP #### [facility] [address] [place] [address] Dr. Florina Humphrey Chloride [Moles/Vol] 103 mmol/L Normal 98-107 The [facility] Comment on above: Performed By: #### B MP #### [facility] [address] [place] [address] Dr. Florina Humphrey CO2 [Moles/Vol] 25.2 mmol/L Normal 22.0-30.0 [facility] Comment on above: Performed By: #### B MP #### [facility] [address] [place] [address] Dr. Florina Humphrey Creatinine [Mass/Vol] 1.09 mg/dL Normal 0.66-1.25 [facility] Comment on above: Performed By: #### B MP #### [facility] [address] [address] [address] Florina Humphrey EGFR-AF GREEK >60 Normal >=60 [facility] Comment on above: Performed By: #### B MP #### [facility] [address] [place] [address] Dr. Florina Humphrey EGFR-NON AF GREEK >60 Normal >=60 [facility] Comment on above: Performed By: #### B MP #### [facility] [address] [place] [address] Dr. Florina Humphrey Glucose [Mass/Vol] 187 mg/dL Critically high 74-106 [facility] Comment on above: Performed By: #### B MP #### [facility] [address] [place] [address] Dr. Florina Humphrey Potassium [Moles/Vol] 4.3 mmol/L Normal 3.4-5.0 [facility] Comment on above: Performed By: #### B MP #### [facility] [address] [place] [address] Dr. Florina Humphrey Sodium [Moles/Vol] 136 mmol/L Critically low 137-145 Th [facility] Comment on above: Performed By: #### B MP #### [facility] [address] [place] [address] Dr. Florina Humphrey Urea nitrogen [Mass/Vol] 17.0 mg/dL Normal 9.0-20.0 [facility] Comment on above: Performed By: #### B MP #### [facility] [address] [place] [address] Dr. Florina Humphrey Urea nitrogen/Creatinine [Mass ratio] 15.6 mg/mg Normal [facility] Comment on above: Performed By: #### B MP #### [facility] [address] [place] [address] Dr. Florina Humphrey [facility]on SARS-CoV-2 (COVID-19) RNA SIENNA+probe Ql (Unsp spec) Not detected Normal NOT DETECTED The [facility] Comment on above: Result Comment: This test is not yet approved or cleared by the [place] FDA. When there are no FDA-approved or cleared tests available, and other criteria are met, FDA can make tests available under an emergency access mechanism called an Emergency Use Authorization (EUA). The EUA for this test is supported by the [employer]ob[employer] Technician of Health and Human Service's (HHS's) declaration that circumstances exist to justify the emergency use of in vitro diagnostics for the detection and/or diagnosis of the virus that causes COVID-19. This EUA will remain in effect (meaning this test can be used) for the duration of the COVID-19 declaration justifying emergency of IVDs, unless it is terminated or revoked by FDA (after which the test may no longer be used). When diagnostic testing is negative, the possibility of a false negative should be considered in the context of a patient's recent exposures and the presence of clinical signs and symptoms consistent with SARS-CoV-2. Performed By: #### C BC #### [facility] [address] [place] [address] Dr. Florina Humphrey TYPE AND SCREENon 10-06-2021 TYPE AND SCREEN Negative Normal [facility] Comment on above: Performed By: #### C BC #### [facility] [address] [place] [address] Dr. Florina Humphrey CBC AUTO DIFFon 09-28-2021 BASO # 0.1 103/ul Normal 0.0-0.1 [facility] Comment on above: Performed By: #### C BC #### [facility] [address] [place] [address] Dr. Florina Humphrey Basophils/100 WBC (Bld) 0.8 % Normal 0.2-2.0 [facility] Comment on above: Performed By: #### C BC #### [facility] [address] [place] [address] Dr. Florina Humphrey EO # 0.2 103/ul Normal 0.0-0.7 The [facility] Comment on above: Performed By: #### C BC #### [facility] [address] [place] [address] Dr. Florina Humphrey Eosinophils/100 WBC (Bld) 3.9 % Normal 0.9-7.0 [facility] Comment on above: Performed By: #### C BC #### [facility] [address] [place] [address] Dr. Florina Humphrey Erythrocyte distribution width (RBC) [Ratio] 12.1 % Normal 11.0-15.0 [facility] Comment on above: Performed By: #### C BC #### [facility] [address] [place] [address] Dr. Florina Humphrey Hematocrit (Bld) [Volume fraction] 44.3 % Normal 42.0-54.0 [facility] Comment on above: Performed By: #### C BC #### [facility] [address] [place] [address] Dr. Florina Humphrey Hemoglobin (Bld) [Mass/Vol] 15.0 g/dL Normal 14.0-18.0 [facility] Comment on above: Performed By: #### C BC #### [facility] [address] [place] [address] Dr. Florina Humphrey IG # 0.01 10e3/ul Normal 0.00-0.03 [facility] Comment on above: Performed By: #### C BC #### [facility] [address] [place] [address] Dr. Florina Humphrey IG % 0.2 % Normal 0.0-0.5 [facility] Comment on above: Performed By: #### C BC #### [facility] [address] [place] [address] Dr. Florina Humphrey LYMPH # 1.6 103/ul Normal 1.2-3.8 The [facility] Comment on above: Performed By: #### C BC #### [facility] [address] [place] [address] Dr. Florina Humphrey Lymphocytes/100 WBC (Bld) 24.9 % Normal 20.5-60.0 [facility] Comment on above: Performed By: #### C BC #### [facility] [address] [place] [address] Dr. Florina Humphrey MANUAL DIFF REQ NO Normal [facility] Comment on above: Performed By: #### C BC #### [facility] [address] [address] [address] Florina Humphrey MCH (RBC) [Entitic mass] 31.6 pg Normal 25.9-34.0 [facility] Comment on above: Performed By: #### C BC #### [facility] [address] [place] [address] Dr. Florina Humphrey MCHC (RBC) [Mass/Vol] 33.9 g/dL Normal 29.9-35.2 [facility] Comment on above: Performed By: #### C BC #### [facility] [address] [place] [address] Dr. Florina Humphrey MCV (RBC) [Entitic vol] 93.5 fL Normal 80.0-94.0 [facility] Comment on above: Performed By: #### C BC #### [facility] [address] [place] [address] Dr. Florina Humphrey MONO # 0.4 103/ul Normal 0.3-0.8 [facility] Comment on above: Performed By: #### C BC #### [facility] [address] [place] [address] Dr. Florina Humphrey Monocytes/100 WBC (Bld) 6.1 % Normal 1.7-12.0 [facility] Comment on above: Performed By: #### C BC #### [facility] [address] [place] [address] Dr. Florina Humphrey NEUT # 4.0 103/ul Normal 1.4-6.5 [facility] Comment on above: Performed By: #### C BC #### [facility] [address] [place] [address] Dr. Florina Humphrey Neutrophils/100 WBC (Bld) 64.1 % Normal 43.0-75.0 [facility] Comment on above: Performed By: #### C BC #### [facility] [address] [place] [address] Dr. Florina Humphrey Platelet mean volume (Bld) [Entitic vol] 10.9 fL Normal 9.5-13.5 The [facility] Comment on above: Performed By: #### C BC #### [facility] [address] [place] [address] Dr. Florina Humphrey PLT 228 103/ul Normal 150-450 [facility] Comment on above: Performed By: #### C BC #### [facility] [address] [place] [address] Dr. Florina Humphrey RBC 4.74 106/ul Normal 4.70-6.10 [facility] Comment on above: Performed By: #### C BC #### [facility] [address] [place] [address] Dr. Flroina Humphrey WBC 6.2 103/ul Normal 4.0-11.0 [facility] Comment on above: Performed By: #### C BC #### [facility] [address] [place] [address] Dr. Florina Humphrey LIVER PROFILEon 09-28-2021 Albumin [Mass/Vol] 3.9 g/dL Normal 3.5-5.0 [facility] Comment on above: Performed By: #### B MP, LIVER #### [facility] [address] [place] [address] Dr. Florina Humphrey Albumin/Globulin [Mass ratio] 1.3 {ratio} Normal [facility] Comment on above: Performed By: #### B MP, LIVER #### [facility] [address] [place] [address] Dr. Florina Humphrey ALP [Catalytic activity/Vol] 64 U/L Normal 38-126 [facility] Comment on above: Performed By: #### B MP, LIVER #### [facility] [address] [place] [address] Dr. Florina Humphrey ALT [Catalytic activity/Vol] 50 U/L Normal 21-72 [facility] Comment on above: Performed By: #### B MP, LIVER #### [facility] [address] [place] [address] Dr. Florina Humphrey AST [Catalytic activity/Vol] 33 U/L Normal 17-59 [facility] Comment on above: Performed By: #### B MP, LIVER #### [facility] [address] [place] [address] Dr. Florina Humphrey BILI, CONJUGATED 0.1 mg/dL Normal 0.0-0.3 [facility] Comment on above: Performed By: #### B MP, LIVER #### [facility] [address] [place] [address] Dr. Florina Humphrey Bilirubin [Mass/Vol] 0.7 mg/dL Normal 0.2-1.3 [facility] Comment on above: Performed By: #### B MP, LIVER #### [facility] [address] [place] [address] Dr. Florina Humphrey Globulin (S) [Mass/Vol] 3.1 g/dL Normal [facility] Comment on above: Performed By: #### B MP, LIVER #### [facility] [address] [place] [address] Dr. Florina Humphrey Protein [Mass/Vol] 7.0 g/dL Normal 6.1-8.2 The [facility] Comment on above: Performed By: #### B MP, LIVER #### [facility] [address] [place] [address] Dr. Florina Humphrey PROF CHEM 8 (BAS METB)on Anion gap [Moles/Vol] 9.8 mmol/L Normal [facility] Comment on above: Performed By: #### B MP, LIVER #### [facility] [address] [place] [address] Dr. Florina Humphrey Calcium [Mass/Vol] 8.5 mg/dL Normal 8.4-10.2 [facility] Comment on above: Performed By: #### B MP, LIVER #### [facility] [address] [place] [address] Dr. Florina Humphrey Chloride [Moles/Vol] 104 mmol/L Normal 98-107 [facility] Comment on above: Performed By: #### B MP, LIVER #### [facility] [address] [place] [address] Dr. Florina Humphrey CO2 [Moles/Vol] 31.0 mmol/L Critically high 22.0-30.0 [facility] Comment on above: Performed By: #### B MP, LIVER #### [facility] [address] [address] [address] Florina Humphrey Creatinine [Mass/Vol] 1.00 mg/dL Normal 0.66-1.25 [facility] Comment on above: Performed By: #### B MP, LIVER #### [facility] [address] [address] [address] Florina Humphrey EGFR-AF GREEK >60 Normal >=60 [facility] Comment on above: Performed By: #### B MP, LIVER #### [facility] [address] [address] [address] Florina Humphrey EGFR-NON AF GREEK >60 Normal >=60 [facility] Comment on above: Performed By: #### B MP, LIVER #### [facility] [address] [place] [address] Dr. Florina Humphrey Glucose [Mass/Vol] 115 mg/dL Critically high 74-106 [facility] Comment on above: Performed By: #### B MP, LIVER #### [facility] [address] [place] [address] Dr. Florina Humphrey Potassium [Moles/Vol] 4.8 mmol/L Normal 3.4-5.0 [facility] Comment on above: Performed By: #### B MP, LIVER #### [facility] [address] [place] [address] Dr. Florina Humphrey Sodium [Moles/Vol] 140 mmol/L Normal 137-145 [facility] Comment on above: Performed By: #### B MP, LIVER #### [facility] [address] [place] [address] Dr. Florina Humphrey Urea nitrogen [Mass/Vol] 15.0 mg/dL Normal 9.0-20.0 [facility] Comment on above: Performed By: #### B MP, LIVER #### [facility] [address] [place] [address] Dr. Florina Humphrey Urea nitrogen/Creatinine [Mass ratio] 15.0 mg/mg Normal [facility] Comment on above: Performed By: #### B MP, LIVER #### [facility] [address] [place] [address] Dr. Florina Humphrey PROTIMEon 09-28-2021 INR Coag (PPP) [Relative time] 1.01 {INR} Normal [facility] Comment on above: Performed By: #### P T, PTT #### [facility] [address] [place] [address] Dr. Florina Humphrey INR GUIDELINES SEE BELOW Normal [facility] Comment on above: Result Comment: KYLE RED INR: 2.0 - 3.0 CONDITIONS NOT LISTED BELOW 2.5 - 3.5 FOR PROSTHETIC HEART VALVE REPLACEMENT 2.5 - 3.5 RECURRENT THROMBOSIS Performed By: #### P T, PTT #### [facility] [address] [place] [address] Dr. Florina Humphrey PT Coag (PPP) [Time] 10.9 s Normal 9.0-11.6 [facility] Comment on above: Performed By: #### P T, PTT #### [facility] [address] [place] [address] Dr. Florina Humphrey PTTon 09-28-2021 aPTT Coag (Bld) [Time] 30.8 s Normal 22.3-36.2 [facility] Comment on above: Performed By: #### P T, PTT #### [facility] [address] [place] [address] Dr. Florina Humphrey MR prostate wo/w conon 07-09 MR prostate wo/w con [facility] [place] [address] MRI Report Signed Patient: Eric Delgado MR#: [id number] 9 : 1960 Acct:[id number] Age/Sex: 60 / M ADM Date: 07/09/21 Loc: MR Room: Type: [facility] Attending Dr: Misti Gagnon PA-C Ordering Provider: Misti Gagnon PA-C Date of Service: 07/09/21 MR/MR prostate wo/w con: R97.20 Copies to: Misti Gagnon PA-C MRI OF THE PROSTATE GLAND WITHOUT AND WITH CONTRAST INDICATIONS: Elevated prostate specific antigen. Evaluate for prostate cancer. TECHNIQUE: MRI of the prostate gland with and without 19 mL MultiHance. PI-RADS v2 Classification* PI-RADS 5 Highly Suspicious for Malignancy PI-RADS 4 Probably Malignant PI-RADS 3 Indeterminate PI-RADS 2 Probably Benign PI-RADS 1 Most Probably Benign *Based Upon ACR Guidelines August 2014. FINDINGS: Prostate Gland Size: The prostate gland measures 3.2 cm AP x 4.6 cm transverse x 5.4 cm craniocaudad consistent with a prostatic gland volume of 41.3 cc. PSA Density: Not given. Central Zone: No tumor-suspicious regions are identified in the central zone. Transition Zone: There is some nodular enlargement and inhomogeneous signal intensity throughout the transition zone most commonly due to benign prostatic hyperplasia. No tumor-suspicious region is identified within the transition zone. Peripheral Zone: There is a tumor suspicious region, PI-RADS 4, involving the left peripheral zone in the mid gland. This is centered in the 5 o'clock position. This measures 5 x 6 x 5 mm. This can be seen on image 19 series 4 and image 15 series 700. This demonstrates non-circumscribed moderate T2 shortening and evidence of restricted diffusion with contrast enhancement. Extraprostatic Extension: None. Seminal Vesicle Invasion: None. Pelvic Lymphadenopathy: None. Urinary Bladder: The urinary bladder wall is normal in thickness without evidence of a mass. Rectosigmoid Colon: Diverticulosis of the colon, no diverticulitis. No rectosigmoid mass is identified. No rectal hemorrhoids are seen. No inguinal hernia is identified. Pelvic Osseous Structures: There is no evidence of osseous metastatic disease at the level of the prostate gland. IMPRESSION: 1. The prostate gland volume equals 41.3 cc. 2. There is a tumor suspicious region, PI-RADS 4, involving the left peripheral zone in the mid gland. This is centered in the 5 o'clock position. 3. There is nodular enlargement and inhomogeneous signal intensity throughout the transition zone most commonly due to benign prostatic hyperplasia. 4. There is no evidence of extraprostatic extension of prostate cancer, seminal vesicle invasion or pelvic lymphadenopathy. Electronically signed on Jul 09, 2021 9:11:09 PM COT by: Carmelo Goldstein MD Diplomate, [place] [employer] Report Completed: Jul 09, 2021 9:11:09 PM COT Transcribed By: 07/10/2142 Dictated By: NON STAFF 07/09/212110 Signed By: 07/10/21 0743 Normal [facility] COMPREHENSIVE METABOLIC PANE Charles 06-04-2021 Albumin [Mass/Vol] 4.5 g/dL Normal 3.6-5.1 [facility] Comment on above: Performed By: #### 7 600, 5363, [id number] #### [facility] of [address], [address] [place] [address] International Sourcing Manager: Felipe Miranda MD Albumin/Globulin [Mass ratio] 1.9 {ratio} Normal 1.0-2.5 [facility] Comment on above: Performed By: #### 7 600, 5363, 90331 #### [facility] of [address], [address] [place] [address] International Sourcing Manager: Feliep Miranda MD ALP [Catalytic activity/Vol] 50 U/L Normal 35-144 [facility] Comment on above: Performed By: #### 7 600, 5363, 10746 #### [facility] of [address], [address] [place] [address] International Sourcing Manager: Felipe Miranda MD ALT [Catalytic activity/Vol] 19 U/L Normal 9-46 [facility] Comment on above: Performed By: #### 7 600, 5363, 85228 #### [facility] of [address], [address] [place] [address] International Sourcing Manager: Felipe Miranda MD AST [Catalytic activity/Vol] 19 U/L Normal 10-35 [facility] Comment on above: Performed By: #### 7 600, 5363, 21069 #### [facility] of [address], [address] [place] [address] International Sourcing Manager: Felipe Miranda MD Bilirubin [Mass/Vol] 1.6 mg/dL High 0.2-1.2 [facility] Comment on above: Performed By: #### 7 600, 5363, 76006 #### [facility] of [address], [address] [place] [address] International Sourcing Manager: Felipe Miranda MD BUN/CREATININE RATIO NOT APPLICABLE Normal 6-22 [facility] Comment on above: Performed By: #### 7 600, 5363, 15798 #### [facility] [address], [address] [place] [address] International Sourcing Manager: Felipe Miranda MD Calcium [Mass/Vol] 9.7 mg/dL Normal 8.6-10.3 [facility] Comment on above: Performed By: #### 7 600, 5363, 67174 #### [facility] of [address], [address] [place] [address] International Sourcing Manager: Felipe Miranda MD Chloride [Moles/Vol] 104 mmol/L Normal 98-110 [facility] Comment on above: Performed By: #### 7 600, 5363, 06345 #### [facility] [address], [address] [place] [address] International Sourcing Manager: Felipe Miranda MD CO2 [Moles/Vol] 30 mmol/L Normal 20-32 [facility] Comment on above: Performed By: #### 7 600, 5363, 63511 #### [facility] [address], [address] [place] [address] International Sourcing Manager: Felipe Miranda MD Creatinine [Mass/Vol] 0.88 mg/dL Normal 0.70-1.33 [facility] Comment on above: Result Comment: For patients >49 years of age, the reference limit for Creatinine is approximately 13% higher for people identified as -Wel[place]. Performed By: #### 7 600, 5363, 37507 #### [facility] [address], [address] [place] [address] International Sourcing Manager: Felipe Miranda MD eGFR NON-AFR. GREEK 95 mL/min/1.73m2 Normal > OR = 60 [facility] Comment on above: Performed By: #### 7 600, 5363, 61509 #### [facility] of [address], [address] [place] [address] International Sourcing Manager: Felipe Miranda MD GFR/1.73 sq M.predicted among blacks MDRD (S/P/Bld) [Vol rate/Area] 110 mL/min/{1.73_m2} Normal > OR = 60 [facility] Comment on above: Performed By: #### 7 600, 5363, 05548 #### [facility] of [address], [address] [place] [address] International Sourcing Manager: Felipe Miranda MD Globulin (S) [Mass/Vol] 2.4 g/dL Normal 1.9-3.7 [facility] Comment on above: Performed By: #### 7 600, 5363, 05243 #### [facility] of [address] [address] International Sourcing Manager: Felipe Miranda MD Glucose [Mass/Vol] 112 mg/dL High 65-99 [facility] Comment on above: Result Comment: Fasting reference interval For someone without known diabetes, a glucose value between 100 and 125 mg/dL is consistent with prediabetes and should be confirmed with a follow-up test. Performed By: #### 7 600, 5363, 32060 #### [facility] of [address], [address] [place] [address] International Sourcing Manager: Felipe Miranda MD Potassium [Moles/Vol] 5.0 mmol/L Normal 3.5-5.3 [facility] Comment on above: Performed By: #### 7 600, 5363, 79604 #### [facility] of [address] [address] International Sourcing Manager: Felipe Miranda MD Protein [Mass/Vol] 6.9 g/dL Normal 6.1-8.1 [facility] Comment on above: Performed By: #### 7 600, 5363, 60240 #### [facility] of [address] [address] International Sourcing Manager: Felipe Miranda MD Sodium [Moles/Vol] 140 mmol/L Normal 135-146 [facility] Comment on above: Performed By: #### 7 600, 5363, 97313 #### [facility] of [address] [place] [address] International Sourcing Manager: Felipe Miranda MD Urea nitrogen [Mass/Vol] 16 mg/dL Normal 7-25 [facility] Comment on above: Performed By: #### 7 600, 5363, 17046 #### [facility] [address], [address] [place] [address] International Sourcing Manager: Felipe Miranda MD LIPID PANEL, [facility] 11-0 Cholesterol [Mass/Vol] 176 mg/dL Normal <200 [facility] Comment on above: Order Comment: FASTI NG:YES FASTING: YES Performed By: #### 7 600, 5363, 56263 #### [facility] [address], [address] [place] [address] International Sourcing Manager: Felipe Miranda MD Cholesterol in HDL [Mass/Vol] 39 mg/dL Low > OR = 40 [facility] Comment on above: Order Comment: FASTI NG:YES FASTING: YES Performed By: #### 7 600, 5363, 90945 #### [facility] [address], [address] [place] [address] International Sourcing Manager: Felipe Miranda MD Cholesterol in LDL [Mass/Vol] 100 mg/dL High [facility] Comment on above: Order Comment: FASTI NG:YES FASTING: YES Result Comment: Refe rence range: <100 Desirable range <100 mg/dL for primary prevention; <70 mg/dL for patients with CHD or diabetic patients with > or = 2 CHD risk factors. LDL-C is now calculated using the Georgi-Jae calculation, which is a validated novel method providing better accuracy than the Friedewald equation in the estimation of LDL-C. Georgi SCHULZ et al. AMELIE. 2013;310(19): 6514-8948 (http://education.Firetide.iTiffin/faq/WBJ487) Performed By: #### 7 600, 5363, 84177 #### [facility] [address], [address] [place] [address] International Sourcing Manager: Felipe Miranda MD Cholesterol.total/C holesterol in HDL [Mass ratio] 4.5 {ratio} Normal <5.0 [facility] Comment on above: Order Comment: FASTI NG:YES FASTING: YES Performed By: #### 7 600, 5363, 10656 #### [facility] [address], [address] [place] [address] International Sourcing Manager: Felipe Miranda MD NON HDL CHOLESTEROL 137 mg/dL (calc) High <130 [facility] Comment on above: Order Comment: FASTI NG:YES FASTING: YES Result Comment: For patients with diabetes plus 1 major ASCVD risk factor, treating to a non-HDL-C goal of <100 mg/dL (LDL-C of <70 mg/dL) is considered a therapeutic option. Performed By: #### 7 600, 5363, 39865 #### [facility] [address], [address] [place] [address] International Sourcing Manager: Felipe Miranda MD Triglyceride [Mass/Vol] 244 mg/dL High <150 [facility] Comment on above: Order Comment: FASTI NG:YES FASTING: YES Result Comment: If a non-fasting specimen was collected, consider repeat triglyceride testing on a fasting specimen if clinically indicated. Alexis et al. J. of Clin. Lipidol. 2015;9:129-169. Performed By: #### 7 600, 5363, 00355 #### [facility] [address], [address] [place] [address] International Sourcing Manager: Felipe Miranda MD PSA, TOTALon 06-04-2021 PSA, TOTAL 5.28 ng/mL High < OR = 4.00 [facility] Comment on above: Result Comment: The total PSA value from this assay system is standardized against the WHO standard. The test result will be approximately 20% lower when compared to the equimolar-standardized total PSA (Darcy Shavon). Comparison of serial PSA results should be interpreted with this fact in mind. This test was performed using the Siemens chemiluminescent method. Values obtained from different assay methods cannot be used interchangeably. PSA levels, regardless of value, should not be interpreted as absolute evidence of the presence or absence of disease. Performed By: #### 7 600, 5363, 67445 #### [facility] [address], [address] [place], [place] [id number] International Sourcing Manager: Felipe Miranda MD Vital Signs Date Time Vital Sign Value Performing Clinician Facility 07-04-2023 11:05-0500 Body height 182.88 cm Annelise Adame Other [facility] Other 07-04-2023 11:05-0500 Body mass index (BMI) [Ratio] 28.72 kg/m2 Annelise Adame Other [facility] Other 07-04-2023 11:05-0500 Body temperature 99.3 [degF] Annelise Adame Other [facility] Other 07-04-2023 11:05-0500 Body weight 96.07 kg Annelise Adame Other [facility] Other 07-04-2023 11:05-0500 Respiratory rate 18 /min Annelise Adame Other [facility] Other 07-04-2023 11:05-0500 SaO2% (BldA) [Mass fraction] 97 % Annelise Adame Other [facility] Other 09-09-2022 13:00-0500 Body height 182.88 cm Fide Dominguez Other [facility] Other 09-09-2022 13:00-0500 Body mass index (BMI) [Ratio] 28.34 kg/m2 Fide Alberto Other [facility] Other 09-09-2022 13:00-0500 Body temperature 98.5 [degF] Fide Dominguez Other [facility] Other 09-09-2022 13:00-0500 Body weight 94.8 kg Fide Dominguez Other [facility] Other 09-09-2022 13:00-0500 Respiratory rate 18 /min Fide Dominguez Other [facility] Other 09-09-2022 13:00-0500 SaO2% (BldA) [Mass fraction] 99 % Fide Dominguez Other [facility] Other 08-16-2022 15:31-0500 Diastolic blood pressure 76 mm[Hg] Latrell CHILDERS [facility] 08-16-2022 15:31-0500 Heart rate 68 /min Latrell CHILDERS [facility] 08-16-2022 15:31-0500 Respiratory rate 16 /min Latrell CHILDERS [facility] 08-16-2022 15:31-0500 Systolic blood pressure 132 mm[Hg] Latrell CHILDERS [facility] 05-17-2022 12:24-0400 Blood Pressure Location Latrell CHILDERS [facility] 05-17-2022 12:24-0400 Diastolic blood pressure 79 mm[Hg] Latrell CHILDERS [facility] 05-17-2022 12:24-0400 Heart rate 67 /min Latrell CHILDERS [facility] 05-17-2022 12:24-0400 Respiratory rate 16 /min Latrell CHILDERS [facility] 05-17-2022 12:24-0400 Systolic blood pressure 139 mm[Hg] Latrell CHILDERS [facility] 04-20-2022 11:45-0400 Body height 182.88 cm Sheldon Refugio Other [facility] Other 04-20-2022 11:45-0400 Body mass index (BMI) [Ratio] 28.72 kg/m2 Sheldon Huff Other [facility] Other 04-20-2022 11:45-0400 Body weight 96.07 kg Sheldonjorge Huff Other [facility] Other 04-20-2022 11:45-0400 Diastolic blood pressure 70 mm[Hg] Sheldon Huff Other [facility] Other 04-20-2022 11:45-0400 SaO2% (BldA) [Mass fraction] 99 % Sheldon Refugio Other [facility] Other 04-20-2022 11:45-0400 Systolic blood pressure 120 mm[Hg] Sheldonjorge Huff Other [facility] Other 04-14-2022 11:26-0400 Diastolic blood pressure 84 mm[Hg] DO Marco Antonio Furlong Work Phone: [facility] 04-14-2022 11:26-0400 Heart rate 64 /min DO Marco Antonio Furlong Work Phone: [facility] 04-14-2022 11:26-0400 Respiratory rate 18 /min DO Marco Antonio Furlong Work Phone: [facility] 04-14-2022 11:26-0400 SaO2% (BldA) [Mass fraction] 100 % DO Marco Antonio Furlong Work Phone: [facility] 04-14-2022 11:26-0400 Systolic blood pressure 150 mm[Hg] DO Marco Antonio [place] Work Phone: [facility] 04-14-2022 11:04-0400 Inhaled oxygen flow rate 3 L/min DO Marco Antonio [employer] Work Phone: [facility] 04-14-2022 10:34-0400 Body height 182.88 cm DO [employer] Work Phone: [facility] 04-14-2022 10:34-0400 Body weight 95.25 kg DO KOEZYlong Work Phone: [facility] 03-30-2022 11:15-0400 Body height 182.88 cm Sheldon Huff Other [facility] [employer] Other 03-30-2022 11:15-0400 Body mass index (BMI) [Ratio] 28.48 kg/m2 Sheldon Huff Other [facility] Other 03-30-2022 11:15-0400 Body weight 95.26 kg Sheldon Huff Other [facility] Other 03-30-2022 11:15-0400 Diastolic blood pressure 80 mm[Hg] Sheldon Huff Other [facility] Other 03-30-2022 11:15-0400 SaO2% (BldA) [Mass fraction] 99 % Sheldon Huff Other [facility] Other 03-30-2022 11:15-0400 Systolic blood pressure 130 mm[Hg] Sheldon Huff Other [facility] Other 03-02-2022 10:15-0400 Body height 182.88 cm Sheldon Huff Other [facility] Other 03-02-2022 10:15-0400 Diastolic blood pressure 70 mm[Hg] Sheldon Huff Other [facility] Other 03-02-2022 10:15-0400 SaO2% (BldA) [Mass fraction] 99 % Sheldon Huff Other [facility] Other 03-02-2022 10:15-0400 Systolic blood pressure 122 mm[Hg] Sheldon Huff Other [facility] Other 02-08-2022 10:12-0400 Blood Pressure Location Latrell CHILDERS [facility] 02-08-2022 10:12-0400 Diastolic blood pressure 64 mm[Hg] Latrell CHILDERS [facility] 02-08-2022 10:12-0400 Heart rate 74 /min Latrell CHILDERS [facility] 02-08-2022 10:12-0400 Systolic blood pressure 134 mm[Hg] Latrell CHILDERS [facility] 01-26-2022 11:30-0400 Body height 182.88 cm Sheldon Huff Other [facility] Other 01-26-2022 11:30-0400 Diastolic blood pressure 80 mm[Hg] Sheldon Huff Other [facility] Other 01-26-2022 11:30-0400 SaO2% (BldA) [Mass fraction] 99 % Sheldon Huff Other [facility] Other 01-26-2022 11:30-0400 Systolic blood pressure 130 mm[Hg] Sheldon Huff Other [facility] Other 11-18-2021 10:55-0400 Blood Pressure Location Latrell CHILDERS [facility] [place] 11-18-2021 10:55-0400 Diastolic blood pressure 85 mm[Hg] Latrell CHILDERS [facility] [employer] 11-18-2021 10:55-0400 Heart rate 76 /min Latrell CHILDERS [facility] [employer] 11-18-2021 10:55-0400 Systolic blood pressure 130 mm[Hg] Latrell CHILDERS [facility] [employer] 11-11-2021 11:55-0400 Blood Pressure Location Latrell CHILDERS [facility] [employer] 11-11-2021 11:55-0400 Diastolic blood pressure 84 mm[Hg] Latrell CHILDERS [facility] [employer] 11-11-2021 11:55-0400 Heart rate 75 /min Latrell CHILDERS [facility] [employer] 11-11-2021 11:55-0400 Respiratory rate 16 /min Latrellgeorgina CHILDERS [facility] [place] 11-11-2021 11:55-0400 Systolic blood pressure 129 mm[Hg] Latrell CHILDERS [facility] [place] 11-09-2021 13:19-0400 Blood Pressure Location Latrell CHILDERS [facility] [place] 11-09-2021 13:19-0400 Diastolic blood pressure 80 mm[Hg] [facility]orgina [facility] 11-09-2021 13:19-0400 Heart rate 71 /min [facility] 11-09-[facility]21 13:19-0400 Respiratory rate 16 /min Latrellgeorgina CHILDERS [facility] [place] 11-09-2021 13:19-0400 Systolic blood pressure 121 mm[Hg] [facility]orgina [facility] Encounter Date Encounter Type Care Provider Facility Start: 12-10-2024 ambulatory Latrell Cadeti ty:[facility] Start: 07-17-2024 End: 07-17-2024 ambulatory [facility] Start: 07-17-2024 Encounter for genera l adult medical examination without abnormal findings [facility] Start: 12-05-2023 End: 12-06-2023 ambulatory Latrell CHILDERS Facility:[facility] Start: 12-05-2023 End: 12-05-2023 Patient encounter procedure Latrell CHILDERS [facility] Start: 11-14-2023 End: 11-14-2023 ambulatory [facility] Start: 07-04-2023 End: 07-04-2023 ambulatory Annelise Wendi Other [facility] Other Start: 07-04-2023 Office outpatient vi sit 15 minutes Annelise Wendi [facility] Start: 02-21-2023 End: 02-22-2023 ambulatory Latrell CHILDERS Facility:[facility] Start: 09-09-2022 End: 09-09-2022 ambulatory Fide Dominguez Other [facility] Other Start: 09-09-2022 Office outpatient vi sit 25 minutes Fide Dominguez [facility] Start: 08-16-2022 End: 08-16-2022 Patient encounter procedure Latrell CHILDERS [facility] Start: 08-11-2022 End: 08-12-[address] LATRELL CHILDERS Facility:[facility] Start: 05-17-2022 End: 05-17-2022 Patient encounter procedure Latrell CHILDERS [facility] Start: 05-13-2022 End: 05-14-[address] LATRELL CHILDERS Facility:[facility] Start: 04-20-2022 End: 04-20-2022 ambulatory Sheldon Huff Other [facility] Other Start: 04-20-2022 Office outpatient vi sit 15 minutes Sheldon Huff [facility] Start: 04-14-2022 (Procedure) Short Sheldon Huff [facility] Start: 04-14-2022 End: 04-14-2022 ambulatory Marco Antonio Dent Facility:[facility] Start: 04-14-2022 End: 04-14-2022 Admission to same day surgery center DO Marco Antonio Kumarkelly Work Phone: [facility] Start: 03-30-2022 End: 03-30-2022 ambulatory Sheldon Huff Other [facility] Other Start: 03-30-2022 Office outpatient vi sit 15 minutes Sheldon Huff [facility] Start: 03-02-2022 End: 03-02-2022 ambulatory Sheldon Huff Other [facility] Other Start: 03-02-2022 Patient encounter procedure Sheldon Huff [facility] Start: 02-08-2022 End: 02-08-2022 Patient encounter procedure Latrell CHILDERS [facility] [place] Start: 02-03-2022 End: 02-04-[address] LATRELL CHILDERS Facility:[facility] Start: 01-26-2022 End: 01-26-2022 ambulatory Sheldon Huff Other [facility] Other Start: 01-26-2022 Office consultation new/estab patient 60 min Sheldonjorge Huff [facility] Start: 12-25-2021 End: 12-25-2021 Patient encounter procedure Latrell CHILDERS [facility] Start: 12-23-2021 End: 12-23-2021 Patient encounter procedure Latrell CHILDERS [facility] Start: 12-22-2021 End: 12-22-2021 Patient encounter procedure Latrell CHILDERS [facility] Start: 12-03-2021 End: 12-03-2021 Patient encounter procedure Heraclio DILL [facility] [place] Start: 12-02-2021 End: 12-02-2021 Patient encounter procedure Latrell CHILDERS [facility] [place] Start: 12-02-2021 End: 12-02-[address] MARCO ANTONIO DENT Facility:[facility] Start: 11-18-2021 End: 11-18-2021 Patient encounter procedure Latrell CHILDERS [facility] [place] Start: 11-11-2021 End: 11-11-2021 Patient encounter procedure Latrell CHILDERS [facility] [place] Start: 11-09-2021 End: 11-09-2021 Patient encounter procedure Latrell CHILDERS [facility] Start: 11-05-2021 End: 11-06-[address] LATRELL CHILDERS Facility:[facility] Start: 10-12-2021 Encounter for preprocedural laboratory examination DR LATRELL CHILDERS [facility] Start: 10-09-2021 End: 10-10-2021 Evaluation and management of inpatient DR LATRELL CHILDERS Facility:[facility] Start: 10-06-2021 End: 10-06-[address] LATRELL CHILDERS Facility:[facility] Start: 10-06-2021 End: 10-06-2021 Encounter for preprocedural laboratory examination DR LATRELL CHILDERS Facility:[facility] Start: 09-30-2021 Encounter for preprocedural cardiovascular examination DR LATRELL CHILDERS [facility] Start: 09-30-2021 Encounter for preprocedural laboratory examination DR LATRELL CHILDERS [facility] Start: 09-28-2021 End: 09-29-[address] LATRELL CHILDERS Facility:[facility] Start: 09-28-2021 End: 09-29-2021 Encounter for preprocedural cardiovascular examination DR LTARELL CHILDERS Facility:[facility] Start: 07-09-2021 End: 07-09-2021 ambulatory Misti Bautistary Facility:[facility] Procedures Date Procedure Procedure Detail Performing Clinician Start: 08-11-[address] TANISHA CHILDERS Comment on above: Performed By: #### C BC #### [facility] [address] [place] [address] Dr. Florina Humphrey Start: 05-13-[address] TANISHA CHILDERS Comment on above: Performed By: #### P SAD #### [facility] [address] [place] [address] Dr. Florina Humphrey Start: 04-14-2022 Local anesthetic ner ve block in lower limb DO Marco Antonio Josésteff Work Phone: Start: 02-03-[address] TANISHA CHILDERS Comment on above: Performed By: #### P SAD #### [facility] [address] [place] [address] Dr. Florina Humphrey Start: 11-11-2021 Cystoscopy Latrell YU Start: 11-05-[address] TANISHA CHILDERS Comment on above: Performed By: #### C BC #### [facility] [address] [address] [address] Florina Humphrey Start: 10-09-2021 Radical prostatectomy Nupur HCILDERS Start: 10-09-2021 Excision of Pelvis Lymphatic, Open Approach DR LATRELL CHILDERS Start: 10-09-2021 Resection of Prostat e, Open Approach DR LATRELL CHILDERS Start: 08-13-2021 Transrectal biopsy o f prostate Latrell CHILDERS Start: 08-01-2019 Stripping of lower l imb varicose veins Latrell CHILDERS Start: 05-01-2019 Colonoscopy Latrell ANAM GIGI Start: 06-29-2018 Transrectal biopsy o f prostate using ultrasound guidance Latrell CHILDERS Start: 08-01-1979 Total orchidectomy Christoph CHILDERS Excisional biopsy of basal cell carcinoma Latrell CHILDERS History of hernia repair Liudmila CHILDERS Injection of knee joint Christoph CHILDERS Plan of Treatment Date Care Activity Detail Author Patient Education Refugio Fuentes [facility] Work Phone: Patient referral [facility] Work Phone: Immunizations Immunization Date Immunization Notes Care Provider [facility] 05-20-2022 influenza virus vaccine, unspecified formulation Latrell CHILDERS [facility] 07-06-2021 SARS-CoV-2 (COVID-19 ) mRNA-1273 vaccine Latrell CHILDERS [facility] 07-01-2021 SARS-CoV-2 (COVID-19 ) Ad26 vaccine, recombinant Latrell CHILDERS [facility] 06-15-2021 influenza virus vaccine, unspecified formulation Latrell CHILDERS [facility] 12-01-2020 SARS-CoV-2 (COVID-19 ) mRNA-1273 vaccine Latrellgeorgina CHILDERS [facility] 11-29-2020 SARS-CoV-2 (COVID-19 ) Ad26 vaccine, recombinant Latrell CHILDERS [facility] 11-14-2020 SARS-CoV-2 (COVID-19 ) mRNA-1273 vaccine [employer] [facility] 10-31-2020 SARS-CoV-2 (COVID-19 ) mRNA-1273 vaccine [employer] [facility] 10-30-2020 SARS-CoV-2 (COVID-19 ) Ad26 vaccine, recombinant Latrell CHILDERS [facility] 10-17-2020 SARS-CoV-2 (COVID-19 ) mRNA-1273 vaccine [employer] [facility] 09-29-2020 influenza virus vaccine, unspecified formulation [employer] [facility] 05-18-2019 influenza virus vaccine, unspecified formulation [employer] [facility] 04-11-2019 tetanus toxoid, redu tony diphtheria toxoid, and acellular pertussis vaccine, adsorbed [employer] [facility] 05-11-2018 influenza virus vaccine, unspecified formulation [employer] [facility] 04-12-2017 influenza virus vaccine, unspecified formulation [employer] [facility] 05-12-2016 influenza virus vaccine, unspecified formulation [employer] [facility] 05-26-2015 influenza virus vaccine, unspecified formulation Latrell CHILEDRS [facility] Payers Date Payer Category Payer Self-pay [id number] 2021 Self-pay 1960 Unknown [id number] 2.16.84 [id number] 1960 Unknown [id number] 2.16.84 [id number] 1962 Unknown [id number] 2.16.84 [id number] 1962 Unknown [id number] 2.16.84 [id number] 1962 Unknown [id number] 2.16.84 [id number] 1962 Unknown [id number] 2.16.84 0.1.582543.3.579.2.593 1962 Unknown [id number] 2.16.84 0.1.883216.3.579.2.593 1962 Unknown [id number] 2.16.84 0.1.609959.3.579.2.593 1962 Unknown [id number] 2.16.8 [id number] 1962 Unknown [id number] 2.16.8 40.1.033682.3.579.2.727 1962 Unknown [id number] 2.16.8 40.1.854173.3.579.2.727 1962 Unknown [id number] 2.16.8 40.1.210701.3.579.2.1286 1962 Unknown [id number] 2.16.8 [id number] 1959 Private Health Insurance [id number] Unknown [id number] 2.16.8 [id number] Unknown [id number] 2.16.8 [id number] Social History Date Type Detail Facility Start: 10-19-2021 End: 12-05-2023 Tobacco smoking status Ex-smoker (finding) [facility] Sex Assigned At Male [facility] Start: 1960 Sex Assigned At Male F [facility] Tobacco smoking status Never [facility] Goals Date Patient Goal Desired Activity /State Functional Status Date Assessment Result Facility 08-16-2022 Functional Status N/A [facility] 05-17-2022 Functional Status N/A [facility] 02-08-2022 Functional Status N/A [facility] Clinical Notes 07-22-2021 to 12-05-2023 Note Date & Type Note Facility 12-05-2023 Hospital Discharge instructions Patient Education 12/05/2023 16:03:54 Prostate Cancer Screening Prostate Cancer Screening Prostate cancer screening is testing that is done to check for the presence of prostate cancer in men. The prostate gland is a walnut-sized gland that is located below the bladder and in front of the rectum in males. The function of the prostate is to add fluid to semen during ejaculation. Prostate cancer is one of the most common types of cancer in men. Who should have prostate cancer screening? Screening recommendations vary based on age and other risk factors, as well as between the professional organizations who make the recommendations. In general, screening is recommended if: You are age 50 to 70 and have an average risk for prostate cancer. You should talk with your health care provider about your need for screening and how often screening should be done. Because most prostate cancers are slow growing and will not cause , screening in this age group is generally reserved for men who have a 10- to 15-year life expectancy. You are younger than age 50, and you have these risk factors: ?Having a father, brother, or uncle who has been diagnosed with prostate cancer. The risk is higher if your family member's cancer occurred at an early age or if you have multiple family members with prostate cancer at an early age. ?Being a male who is Black or is of [place] or sub-Saharan descent. In general, screening is not recommended if: You are younger than age 40. You are between the ages of 40 and 49 and you have no risk factors. You are 70 years of age or older. At this age, the risks that screening can cause are greater than the benefits that it may provide. If you are at high risk for prostate cancer, your health care provider may recommend that you have screenings more often or that you start screening at a younger age. How is screening for prostate cancer done? The recommended prostate cancer screening test is a blood test called the prostate-specific antigen (PSA) test. PSA is a protein that is made in the prostate. As you age, your prostate naturally produces more PSA. Abnormally high PSA levels may be caused by: Prostate cancer. An enlarged prostate that is not caused by cancer (benign prostatic hyperplasia, or BPH). This condition is very common in older men. A prostate gland infection (prostatitis) or urinary tract infection. Certain medicines such as male hormones (like testosterone) or other medicines that raise testosterone levels. A rectal exam may be done as part of prostate cancer screening to help provide information about the size of your prostate gland. When a rectal exam is performed, it should be done after the PSA level is drawn to avoid any effect on the results. Depending on the PSA results, you may need more tests, such as: A physical exam to check the size of your prostate gland, if not done as part of screening. Blood and imaging tests. A procedure to remove tissue samples from your prostate gland for testing (biopsy). This is the only way to know for certain if you have prostate cancer. What are the benefits of prostate cancer screening? Screening can help to identify cancer at an early stage, before symptoms start and when the cancer can be treated more easily. There is a small chance that screening may lower your risk of dying from prostate cancer. The chance is small because prostate cancer is a slow-growing cancer, and most men with prostate cancer from a different cause. What are the risks of prostate cancer screening? The main risk of prostate cancer screening is diagnosing and treating prostate cancer that would never have caused any symptoms or problems. This is called overdiagnosisand overtreatment. PSA screening cannot tell you if your PSA is high due to cancer or a different cause. A prostate biopsy is the only procedure to diagnose prostate cancer. Even the results of a biopsy may not tell you if your cancer needs to be treated. Slow-growing prostate cancer may not need any treatment other than monitoring, so diagnosing and treating it may cause unnecessary stress or other side effects. Questions to ask your health care provider When should I start prostate cancer screening? What is my risk for prostate cancer? How often do I need screening? What type of screening tests do I need? How do I get my test results? What do my results mean? Do I need treatment? Where to find more information The [employer]: www.cancer.org [employer]: www.auanet.org Contact a health care provider if: You have difficulty urinating. You have pain when you urinate or ejaculate. You have blood in your urine or semen. You have pain in your back or in the area of your prostate. Summary Prostate cancer is a common type of cancer in men. The prostate gland is located below the bladder and in front of the rectum. This gland adds fluid to semen during ejaculation. Prostate cancer screening may identify cancer at an early stage, when the cancer can be treated more easily and is less likely to have spread to other areas of the body. The prostate-specific antigen (PSA) test is the recommended screening test for prostate cancer, but it has associated risks. Discuss the risks and benefits of prostate cancer screening with your health care provider. If you are age 70 or older, the risks that screening can cause are greater than the benefits that it may provide. This information is not intended to replace advice given to you by your health care provider. Make sure you discuss any questions you have with your health care provider. Document Revised: 01/11/2022 Document Reviewed: 01/11/2022 [employer] Patient Education 2022 [employer]. Follow Up Care 02/21/2023 17:49:19 With:NINO BARKLEY, Latrell Ding, URL Address: [facility] [address], [place] [address]- [phone] When: Unknown [facility] 07-04-2023 Evaluation note Encounter Date Diagnosis Assessment Notes Jul, Suspected COVID-19 virus infection (ICD-10 - Z20.822) Jul, COVID-19 (ICD-10 - U07.1) Discharge Instructions for COVID-19 (Suspected or Confirmed ) material was printed Drink plenty fluids, get plenty of rest. Take Tylenol or Motrin as needed for aches pains or fevers. Must quarantine for 5 days after the onset of your symptoms of COVID. Follow-up with your family physician if no improvement in 2 to 3 days OM Latam Other 02-09-2023 Evaluation note* Encounter Date Diagnosis Assessment Notes Treatment Notes Treatment Clinical Notes Sep, Sore throat (ICD-10 - J02.9) Sep, Viral URI with cough (ICD-10 - J06.9) Advised patient that rapid COVID/Influenza A/B test and rapid Strep test was negative today. Advised patient that will treat as viral URI. Supportive care as directed, increase fluids and rest, Tylenol/Motrin as directed, rx of Mucinex, cool mist humidifier, throat lozenges. Discussed infection control practices such as good hand washing and mask wearing. Patient to follow up with PCP if symptoms persist or worsen despite treatment. Immediate eval for SOB, difficulty, chest pain, fevers that do not break with antipyretic or any other concerning symptoms as reviewed on patient education handout. Patient verbalizes understanding and is agreeable to treatment plan. Patient left in stable condition Sep, Contact with and (suspected) exposure to other viral communicable diseases (ICD-10 - Z20.828) OM Latam Other 01-16-2023 Hospital Discharge instructions Patient Education 08/16/2022 16:48:54 Erectile Dysfunction Erectile Dysfunction Erectile dysfunction (ED) is the inability to get or keep an erection in order to have sexual intercourse. Erectile dysfunction may include: Inability to get an erection. Lack of enough hardness of the erection to allow penetration. Loss of the erection before sex is finished. What are the causes? This condition may be caused by: Certain medicines, such as: ?Pain relievers. ?Antihistamines. ?Antidepressants. ?Blood pressure medicines. ?Water pills (diuretics). ?Ulcer medicines. ?Muscle relaxants. ?Drugs. Excessive drinking. Psychological causes, such as: ?Anxiety. ?Depression. ?Sadness. ?Exhaustion. ?Performance fear. ?Stress. Physical causes, such as: ?Artery problems. This may include diabetes, smoking, liver disease, or atherosclerosis. ?High blood pressure. ?Hormonal problems, such as low testosterone. ?Obesity. ?Nerve problems. This may include back or pelvic injuries, diabetes mellitus, multiple sclerosis, or Parkinson disease. What are the signs or symptoms? Symptoms of this condition include: Inability to get an erection. Lack of enough hardness of the erection to allow penetration. Loss of the erection before sex is finished. Normal erections at some times, but with frequent unsatisfactory episodes. Low sexual satisfaction in either partner due to erection problems. A curved penis occurring with erection. The curve may cause pain or the penis may be too curved to allow for intercourse. Never having nighttime erections. How is this diagnosed? This condition is often diagnosed by: Performing a physical exam to find other diseases or specific problems with the penis. Asking you detailed questions about the problem. Performing blood tests to check for diabetes mellitus or to measure hormone levels. Performing other tests to check for underlying health conditions. Performing an ultrasound exam to check for scarring. Performing a test to check blood flow to the penis. Doing a sleep study at home to measure nighttime erections. How is this treated? This condition may be treated by: Medicine taken by mouth to help you achieve an erection (oral medicine). Hormone replacement therapy to replace low testosterone levels. Medicine that is injected into the penis. Your health care provider may instruct you how to give yourself these injections at home. Vacuum pump. This is a pump with a ring on it. The pump and ring are placed on the penis and used to create pressure that helps the penis become erect. Penile implant surgery. In this procedure, you may receive: ?An inflatable implant. This consists of cylinders, a pump, and a reservoir. The cylinders can be inflated with a fluid that helps to create an erection, and they can be deflated after intercourse. ?A semi-rigid implant. This consists of two silicone rubber rods. The rods provide some rigidity. They are also flexible, so the penis can both curve downward in its normal position and become straight for sexual intercourse. Blood vessel surgery, to improve blood flow to the penis. During this procedure, a blood vessel from a different part of the body is placed into the penis to allow blood to flow around (bypass) damaged or blocked blood vessels. Lifestyle changes, such as exercising more, losing weight, and quitting smoking. Follow these instructions at home: Medicines Take goin-kjs-jhjqrue and prescription medicines only as told by your health care provider. Do not increase the dosage without first discussing it with your health care provider. If you are using self-injections, perform injections as directed by your health care provider. Makesure to avoid any veins that are on the surface of the penis. After giving an injection, apply pressure to the injection site for 5 minutes. General instructions Exercise regularly, as directed by your health care provider. Work with your health care provider to lose weight, if needed. Do not use any products that contain nicotine or tobacco, such as cigarettes and e-cigarettes. If you need help quitting, ask your health care provider. Before using a vacuum pump, read the instructions that come with the pump and discuss any questionswith your health care provider. Keep all follow-up visits as told by your health care provider. This is important. Contact a health care provider if: You feel nauseous. You vomit. Get help right away if: You are taking oral or injectable medicines and you have an erection that lasts longer than 4 hours. If your health care provider is unavailable, go to the nearest emergency room for evaluation. An erection that lasts much longer than 4 hours can result in permanent damage to your penis. You have severe pain in your groin or abdomen. You develop redness or severe swelling of your penis. You have redness spreading up into your groin or lower abdomen. You are unable to urinate. You experience chest pain or a rapid heart beat (palpitations) after taking oral medicines. Summary Erectile dysfunction (ED) is the inability to get or keep an erection during sexual intercourse. This problem can usually be treated successfully. This condition is diagnosed based on a physical exam, your symptoms, and tests to determine the cause. Treatment varies depending on the cause, and may include medicines, hormone therapy, surgery, orvacuum pump. You may need follow-up visits to make sure that you are using your medicines or devices correctly. Get help right away if you are taking or injecting medicines and you have an erection that lasts longer than 4 hours. This information is not intended to replace advice given to you by your health care provider. Make sure you discuss any questions you have with your health care provider. Document Released: 07/15/2001 Document Revised: 06/30/2018 Document Reviewed: 08/03/2017 [employer] Patient Education 2020 [employer] Follow Up Care 05/17/2022 13:00:02 With:NINO BARKLEY, Latrell Ding, URL Address: [facility] [address] , [place] [address]- When: Unknown [facility] 10-17-2022 Hospital Discharge instructions Patient Education 05/17/2022 12:49:47 Erectile Dysfunction Erectile Dysfunction Erectile dysfunction (ED) is the inability to get or keep an erection in order to have sexual intercourse. Erectile dysfunction may include: Inability to get an erection. Lack of enough hardness of the erection to allow penetration. Loss of the erection before sex is finished. What are the causes? This condition may be caused by: Certain medicines, such as: ?Pain relievers. ?Antihistamines. ?Antidepressants. ?Blood pressure medicines. ?Water pills (diuretics). ?Ulcer medicines. ?Muscle relaxants. ?Drugs. Excessive drinking. Psychological causes, such as: ?Anxiety. ?Depression. ?Sadness. ?Exhaustion. ?Performance fear. ?Stress. Physical causes, such as: ?Artery problems. This may include diabetes, smoking, liver disease, or atherosclerosis. ?High blood pressure. ?Hormonal problems, such as low testosterone. ?Obesity. ?Nerve problems. This may include back or pelvic injuries, diabetes mellitus, multiple sclerosis, or Parkinson disease. What are the signs or symptoms? Symptoms of this condition include: Inability to get an erection. Lack of enough hardness of the erection to allow penetration. Loss of the erection before sex is finished. Normal erections at some times, but with frequent unsatisfactory episodes. Low sexual satisfaction in either partner due to erection problems. A curved penis occurring with erection. The curve may cause pain or the penis may be too curved to allow for intercourse. Never having nighttime erections. How is this diagnosed? This condition is often diagnosed by: Performing a physical exam to find other diseases or specific problems with the penis. Asking you detailed questions about the problem. Performing blood tests to check for diabetes mellitus or to measure hormone levels. Performing other tests to check for underlying health conditions. Performing an ultrasound exam to check for scarring. Performing a test to check blood flow to the penis. Doing a sleep study at home to measure nighttime erections. How is this treated? This condition may be treated by: Medicine taken by mouth to help you achieve an erection (oral medicine). Hormone replacement therapy to replace low testosterone levels. Medicine that is injected into the penis. Your health care provider may instruct you how to give yourself these injections at home. Vacuum pump. This is a pump with a ring on it. The pump and ring are placed on the penis and used to create pressure that helps the penis become erect. Penile implant surgery. In this procedure, you may receive: ?An inflatable implant. This consists of cylinders, a pump, and a reservoir. The cylinders can be inflated with a fluid that helps to create an erection, and they can be deflated after intercourse. ?A semi-rigid implant. This consists of two silicone rubber rods. The rods provide some rigidity. They are also flexible, so the penis can both curve downward in its normal position and become straight for sexual intercourse. Blood vessel surgery, to improve blood flow to the penis. During this procedure, a blood vessel from a different part of the body is placed into the penis to allow blood to flow around (bypass) damaged or blocked blood vessels. Lifestyle changes, such as exercising more, losing weight, and quitting smoking. Follow these instructions at home: Medicines Take ysil-khu-ohfqvct and prescription medicines only as told by your health care provider. Do not increase the dosage without first discussing it with your health care provider. If you are using self-injections, perform injections as directed by your health care provider. Makesure to avoid any veins that are on the surface of the penis. After giving an injection, apply pressure to the injection site for 5 minutes. General instructions Exercise regularly, as directed by your health care provider. Work with your health care provider to lose weight, if needed. Do not use any products that contain nicotine or tobacco, such as cigarettes and e-cigarettes. If you need help quitting, ask your health care provider. Before using a vacuum pump, read the instructions that come with the pump and discuss any questionswith your health care provider. Keep all follow-up visits as told by your health care provider. This is important. Contact a health care provider if: You feel nauseous. You vomit. Get help right away if: You are taking oral or injectable medicines and you have an erection that lasts longer than 4 hours. If your health care provider is unavailable, go to the nearest emergency room for evaluation. An erection that lasts much longer than 4 hours can result in permanent damage to your penis. You have severe pain in your groin or abdomen. You develop redness or severe swelling of your penis. You have redness spreading up into your groin or lower abdomen. You are unable to urinate. You experience chest pain or a rapid heart beat (palpitations) after taking oral medicines. Summary Erectile dysfunction (ED) is the inability to get or keep an erection during sexual intercourse. This problem can usually be treated successfully. This condition is diagnosed based on a physical exam, your symptoms, and tests to determine the cause. Treatment varies depending on the cause, and may include medicines, hormone therapy, surgery, orvacuum pump. You may need follow-up visits to make sure that you are using your medicines or devices correctly. Get help right away if you are taking or injecting medicines and you have an erection that lasts longer than 4 hours. This information is not intended to replace advice given to you by your health care provider. Make sure you discuss any questions you have with your health care provider. Document Released: 07/15/2001 Document Revised: 06/30/2018 Document Reviewed: 08/03/2017 [employer] Patient Education 2020 [employer]. Follow Up Care 02/08/2022 10:28:49 With:NINO BARKLEY, Latrell Ding, URL Address: [facility] [address] , [place] [address]- [phone] When:08/17/2022 Comments:PSA [facility] 09-20-2022 Evaluation note* Encounter Date Diagnosis Assessment Notes Treatment Notes Treatment Clinical Notes Apr, Primary osteoarthritis of left knee (ICD-10 - M17.12) 61 year old male here for follow up status post left superior medial, superior lateral and inferior medial genicular nerve block under fluoroscopic guidance. Patient reports 70-80% pain relief and increased function following procedure. He complains of left knee pain today as expected. Different treatment options were discussed in detail with the patient, and I recommed we proceed with a left genicular RFA under fluoroscopic guidance. Risks and benefits of procedure explained to patient; patient verbalizes understanding. Apr, Left knee pain (ICD-10 - M25.562) Continue with genicular RFA as scheduled Apr, Chronic pain (ICD-10 - G89.29) Continue with current treatment plan [facility] Encounter Date Diagnosis Assessment Notes Treatment Notes Treatment Clinical Notes Mar, Primary osteoarthritis of left knee (ICD-10 - M17.12) 61 year old male here for follow-up status post Durolane injection to the left knee for chronic pain. Patient reports minimal pain relief following the injection. He continues to complain of left knee pain today. He states his pain negatively impacts his activities of daily living and sleep pattern. Different treatment options were discussed in detail with the patient, and I recommend we proceed with a left genicular nerve block under fluoroscopic guidance. Risks and benefits of procedure explained to patient; patient verbalizes understanding. Mar, Chronic pain (ICD-10 - G89.29) Continue with current treatment plan [facility] Other 08-02-2022 Evaluation note* Encounter Date Diagnosis Assessment Notes Treatment Notes Treatment Clinical Notes Mar, Primary osteoarthritis of left knee (ICD-10 - M17.12) 61 year old male here for follow up for chronic pain. He voices continued complaints of left knee pain. Different treatment options were discussed in detail with the patient, and I recommend we proceed with Durolane injection to the left knee under ultrasound guidance. Risks and benefits of procedure explained to patient; patient verbalizes understanding. Mar, Left knee pain (ICD-10 - M25.562) Durolane injected into left knee today Mar, Chronic pain (ICD-10 - G89.29) Patient encouraged to take Tylenol for the next 2-3 days for pain. [facility] Other 07-11-2022 Hospital Discharge instructions Patient Education 02/08/2022 10:16:56 Calorie Counting for Weight Loss Calorie Counting for Weight Loss Calories are units of energy. Your body needs a certain amount of calories from food to keep you going throughout the day. When you eat more calories than your body needs, your body stores the extra calories as fat. When you eat fewer calories than your body needs, your body [place] fat to get the energy it needs. Calorie counting means keeping track of how many calories you eat and drink each day. Calorie counting can be helpful if you need to lose weight. If you make sure to eat fewer calories than your bodyneeds, you should lose weight. Ask your health care provider what a healthy weight is for you. For calorie counting to work, you will need to eat the right number of calories in a day in order to lose a healthy amount of weight per week. A dietitian can help you determine how many calories youneed in a day and will give you suggestions on how to reach your calorie goal. A healthy amount of weight to lose per week is usually 1 2 lb (0.5 0.9 kg). This usually means thatyour daily calorie intake should be reduced by 500 750 calories. Eating 1,200 1,500 calories per day can help most women lose weight. Eating 1,500 1,800 calories per day can help most men lose weight. What is my plan? My goal is to have calories per day. If I have this many calories per day, I should lose around pounds per week. What do I need to know about calorie counting? In order to meet your daily calorie goal, you will need to: Find out how many calories are in each food you would like to eat. Try to do this before you eat. Decide how much of the food you plan to eat. Write down what you ate and how many calories it had. Doing this is called keeping a food log. To successfully lose weight, it is important to balance calorie counting with a healthy lifestyle that includes regular activity. Aim for 150 minutes of moderate exercise (such as walking) or 75 minutes of vigorous exercise (such as running) each week. Where do I find calorie information? The number of calories in a food can be found on a Nutrition Facts label. If a food does not have aNutrition Facts label, try to look up the calories online or ask your dietitian for help. Remember that calories are listed per serving. If you choose to have more than one serving of a food, you will have to multiply the calories per serving by the amount of servings you plan to eat. Forexample, the label on a package of bread might say that a serving size is 1 slice and that there are 90 calories in a serving. If you eat 1 slice, you will have eaten 90 calories. If you eat 2 slices, you will have eaten 180 calories. How do I keep a food log? Immediately after each meal, record the following information in your food log: What you ate. Don't forget to include toppings, sauces, and other extras on the food. How much you ate. This can be measured in cups, ounces, or number of items. How many calories each food and drink had. The total number of calories in the meal. Keep your food log near you, such as in a small notebook in your pocket, or use a mobile pito or website. Some programs will calculate calories for you and show you how many calories you have left forthe day to meet your goal. What are some calorie counting tips? Use your calories on foods and drinks that will fill you up and not leave you hungry: ?Some examples of foods that fill you up are nuts and nut butters, vegetables, lean proteins, and high-fiber foods like whole grains. High-fiber foods are foods with more than 5 g fiber per serving. ?Drinks such as sodas, specialty coffee drinks, alcohol, and juices have a lot of calories, yet do not fill you up. Eat nutritious foods and avoid empty calories. Empty calories are calories you get from foods or beverages that do not have many vitamins or protein, such as candy, sweets, and soda. It is better to have a nutritious high-calorie food (such as an avocado) than a food with few nutrients (such as a bag of chips). Know how many calories are in the foods you eat most often. This will help you calculate calorie counts faster. Pay attention to calories in drinks. Low-calorie drinks include water and unsweetened drinks. Pay attention to nutrition labels for low fat or fat free foods. These foods sometimes have thesame amount of calories or more calories than the full fat versions. They also often have added sugar, starch, or salt, to make up for flavor that was removed with the fat. Find a way of tracking calories that works for you. Get creative. Try different apps or programs ifwriting down calories does not work for you. What are some portion control tips? Know how many calories are in a serving. This will help you know how many servings of a certain food you can have. Use a measuring cup to measure serving sizes. You could also try weighing out portions on a kitchenscale. With time, you will be able to estimate serving sizes for some foods. Take some time to put servings of different foods on your favorite plates, bowls, and cups so you know what a serving looks like. Try not to eat straight from a bag or box. Doing this can lead to overeating. Put the amount you would like to eat in a cup or on a plate to make sure you are eating the right portion. Use smaller plates, glasses, and bowls to prevent overeating. Try not to multitask (for example, watch TV or use your computer) while eating. If it is time to eat, sit down at a table and enjoy your food. This will help you to know when you are full. It will also help you to be aware of what you are eating and how much you are eating. What are tips for following this plan? Reading food labels Check the calorie count compared to the serving size. The serving size may be smaller than what youare used to eating. Check the source of the calories. Make sure the food you are eating is high in vitamins and proteinand low in saturated and trans fats. Shopping Read nutrition labels while you shop. This will help you make healthy decisions before you decide to purchase your food. Make a grocery list and stick to it. Cooking Try to cook your favorite foods in a healthier way. For example, try baking instead of frying. Use low-fat dairy products. Meal planning Use more fruits and vegetables. Half of your plate should be fruits and vegetables. Include lean proteins like poultry and fish. How do I count calories when eating out? Ask for smaller portion sizes. Consider sharing an entree and sides instead of getting your own entree. If you get your own entree, eat only half. Ask for a box at the beginning of your meal and put the rest of your entree in it so you are not tempted to eat it. If calories are listed on the menu, choose the lower calorie options. Choose dishes that include vegetables, fruits, whole grains, low-fat dairy products, and lean protein. Choose items that are boiled, broiled, grilled, or steamed. Stay away from items that are buttered,battered, fried, or served with cream sauce. Items labeled crispy are usually fried, unless stated otherwise. Choose water, low-fat milk, unsweetened iced tea, or other drinks without added sugar. If you want an alcoholic beverage, choose a lower calorie option such as a glass of wine or light beer. Ask for dressings, sauces, and syrups on the side. These are usually high in calories, so you should limit the amount you eat. If you want a salad, choose a garden salad and ask for grilled meats. Avoid extra toppings like hong, cheese, or fried items. Ask for the dressing on the side, or ask for olive oil and vinegar or lemon to use as dressing. Estimate how many servings of a food you are given. For example, a serving of cooked rice is cup orabout the size of half a baseball. Knowing serving sizes will help you be aware of how much food you are eating at restaurants. The list below tells you how big or small some common portion sizes arebased on everyday objects: ?1 oz 4 stacked dice. ?3 oz 1 deck of cards. ?1 tsp 1 . ?1 Tbsp a ping-pong ball. ?2 Tbsp 1 ping-pong ball. ? cup baseball. ?1 cup 1 baseball. Summary Calorie counting means keeping track of how many calories you eat and drink each day. If you eat fewer calories than your body needs, you should lose weight. A healthy amount of weight to lose per week is usually 1 2 lb (0.5 0.9 kg). This usually means reducing your daily calorie intake by 500 750 calories. The number of calories in a food can be found on a Nutrition Facts label. If a food does not have aNutrition Facts label, try to look up the calories online or ask your dietitian for help. Use your calories on foods and drinks that will fill you up, and not on foods and drinks that will leave you hungry. Use smaller plates, glasses, and bowls to prevent overeating. This information is not intended to replace advice given to you by your health care provider. Make sure you discuss any questions you have with your health care provider. Document Released: 07/18/2006 Document Revised: 04/06/2019 Document Reviewed: 06/17/2017 [employer] Patient Education 2020 [employer]. 02/08/2022 10:16:44 Urethral Stricture Urethral Stricture Urethral stricture is narrowing of the tube (urethra) that carries urine from the bladder out of the body. The urethra can become narrow due to scar tissue from an injury or infection. This can make it difficult to pass urine. In women, the urethra opens above the vaginal opening. In men, the urethra opens at the tip of the penis, and the urethra is much longer than it is in women. Because of the length of the male urethra, urethral stricture is much more common in men. This condition is treated with surgery. What are the causes? In both men and women, common causes of urethral stricture include: Urinary tract infection (UTI). Sexually transmitted infection (STI). Use of a tube placed into the urethra to drain urine from the bladder (urinary catheter). Urinary tract surgery. In men, common causes of urethral stricture include: A severe injury to the pelvis. Prostate surgery. Injury to the penis. In many cases, the cause of urethral stricture is not known. What increases the risk? You are more likely to develop this condition if you: Are male. Men who have had prostate surgery are at risk of developing this condition. Use a urinary catheter. Have had urinary tract surgery. What are the signs or symptoms? The main symptom of this condition is difficulty passing urine. This may cause decreased urine flow, dribbling, or spraying of urine. Other symptom of this condition may include: Frequent UTIs. Blood in the urine. Pain when urinating. Swelling of the penis in men. Inability to pass urine (urinary obstruction). How is this diagnosed? This condition may be diagnosed based on: Your medical history and a physical exam. Urine tests to check for infection or bleeding. X-rays. Ultrasound. Retrograde urethrogram. This is a type of test in which dye is injected into the urethra and then an X-ray is taken. Urethroscopy. This is when a thin tube with a light and camera on the end (urethroscope) is used tolook at the urethra. How is this treated? This condition is treated with surgery. The type of surgery that you have depends on the severity of your condition. You may have: Urethral dilation. In this procedure, the narrow part of the urethra is stretched open (dilated) with dilating instruments or a small balloon. Urethrotomy. In this procedure, a urethroscope is placed into the urethra, and the narrow part of the urethra is cut open with a surgical blade inserted through the urethroscope. Open surgery. In this procedure, an incision is made in the urethra, the narrow part is removed, and the urethra is reconstructed. Follow these instructions at home: Take axqy-jnl-itilehh and prescription medicines only as told by your health care provider. If you were prescribed an antibiotic medicine, take it as told by your health care provider. Do notstop taking the antibiotic even if you start to feel better. Drink enough fluid to keep your urine pale yellow. Keep all follow-up visits as told by your health care provider. This is important. Contact a health care provider if: You have signs of a urinary tract infection, such as: ?Frequent urination or passing small amounts of urine frequently. ?Needing to urinate urgently. ?Pain or burning with urination. ?Urine that smells bad or unusual. ?Cloudy urine. ?Pain in the lower abdomen or back. ?Trouble urinating. ?Blood in the urine. ?Vomiting or being less hungry than normal. ?Diarrhea or abdominal pain. ?Vaginal discharge, if you are female. Your symptoms are getting worse instead of better. Get help right away if: You cannot pass urine. You have a fever. You have swelling, bruising, or discoloration of your genital area. This includes the penis, scrotum, and inner thighs for men, and the outer genital organs (vulva) and inner thighs for women. You develop swelling in your legs. You have difficulty breathing. Summary Urethral stricture is narrowing of the tube (urethra) that carries urine from the bladder out of the body. The urethra can become narrow due to scar tissue from an injury or infection. This condition can make it difficult to pass urine. This condition is treated with surgery. The type of surgery that you have depends on the severity of your condition. Contact a health care provider if your symptoms get worse or you have signs of a urinary tract infection. This information is not intended to replace advice given to you by your health care provider. Make sure you discuss any questions you have with your health care provider. Document Released: 08/13/2016 Document Revised: 02/28/2019 Document Reviewed: 02/28/2019 [employer] Patient Education 2020 [employer]. 02/08/2022 10:16:40 Cancer Screening for Men Cancer Screening for Men A cancer screening is a test or exam that checks for cancer. Your health care provider will recommend specific cancer screenings based on your age, personal history, and family history of cancer. Work with your health care provider to create a cancer screening schedule that protects your health. Why is cancer screening done? Cancer screening is done to look for cancer in the very early stages, before it spreads and becomesharder to treat and before you would start to notice symptoms. Finding cancer early improves the chances of successful treatment. It may save your life. Who should be screened for cancer? All men should be screened for colorectal cancer and skin cancer. Your health care provider may recommend screenings for other types of cancer if: You had cancer before. You have a family member with cancer. You have abnormal genes that could increase the risk of cancer. You have risk factors for certain cancers, such as smoking. When you should be screened for cancer depends on: Your age. Your medical history and your family's medical history. Certain lifestyle factors, such as smoking. Environmental exposure, such as to asbestos. What are some common cancer screenings? Lung cancer Lung cancer screening is done with a CT scan that looks for abnormal cells in the lungs. Discuss lung cancer screening with your health care provider if you are 55 74 years old and if any of the following apply to you: You currently smoke. You used to smoke heavily. You have a smoking history of 1 pack a day for 30 years or 2 packs a day for 15 years. You have quit smoking within the past 15 years. If you smoke heavily or if you used to smoke, you may need to be screened every year. Prostate cancer Prostate cancer screening is done with blood tests and an exam in which a health care provider usesa gloved finger to check prostate size (digital rectal exam). You may need to be screened for prostate cancer if: You have risk factors of prostate cancer, such as being or having a close family member with prostate cancer. You have inherited gene changes or a genetic condition, including BRCA1 or BRCA2 gene mutations or Henning syndrome. You have symptoms of prostate cancer, such as problems urinating or erectile dysfunction. Prostate cancer screening for men with average risk may start at age 50. Men with risk factors may need to be screened earlier at age 40 45. Once you have been screened for prostate cancer, future screening may be recommended based on the results of your blood tests. Colorectal cancer All adults should have screening for colorectal cancer starting at age 50 and continuing until age 75. Your health care provider may recommend screening at age 45. You will have tests every 1 10 years, depending on your results and the type of screening test. If you have a family history of colon or rectal cancer or other risk factors, you may need to start having screenings earlier. Talk with your health care provider about which screening test is right for you and how often you should be screened. Colorectal cancer screening looks for cancer or for growths called polyps that often form before cancer starts. Tests to look for cancer or polyps include: Colonoscopy or flexible sigmoidoscopy. For these procedures, a flexible tube with a small camera isinserted into the rectum. CT colonography. This test uses X-rays and a contrast dye to check the colon for polyps. If a polypis found, you may need to have a colonoscopy so the polyp can be located and removed. Tests to look for cancer in the stool (feces) include: Guaiac-based fecal occult blood test (FOBT). This test detects blood in stool. It can be done at home with a kit. Fecal immunochemical test (FIT). This test detects blood in stool. For this test, you will need to collect stool samples at home. Stool DNA test. This test looks for blood in stool and any changes in DNA that can lead to colon cancer. For this test, you will need to collect a stool sample at home and send it to a lab. Skin cancer Skin cancer screening is done by checking the skin for unusual moles or spots and any changes in existing moles. Your health care provider should check your skin for signs of skin cancer at every physical exam. You should check your skin every month and tell your health care provider right away if anything looks unusual. Men with a kqnuax-rjtd-yasiae risk for skin cancer may want to see a aircraft skin burnisher (cocoa roaster) for an annual body check. Where to find more information National [employer] [place]: https://www.cancer.gov/about-cancer/screening Centers for Disease Control and Prevention: https://www.cdc.gov/cancer/dcpc/prevention/screening.htm [employer]: https://www.cancer.org/latest-news/7-kftacw-vhgihsrhk-rqkmj-awe-fua.html Contact a health care provider if: You have concerns about any signs or symptoms of cancer, such as: ?Moles that have an unusual shape or color. ?Changes in existing moles. ?A sore on your skin that does not heal. ?Blood in your urine or stool. ?Fatigue that does not go away. ?Frequent pain or cramping in your abdomen. ?Coughing or trouble breathing that does not go away. ?Coughing up blood. ?Losing weight without trying. ?Changes in urination habits. ?Painful urination or ejaculation. Summary Be aware of and watch for signs and symptoms of cancer, especially symptoms of lung cancer, prostate cancer, colorectal cancer, and skin cancer. Early detection of cancer with cancer screening may save your life. Talk with your health care provider about your specific cancer risks. Work together with your health care provider to create a cancer screening plan that is right for you. This information is not intended to replace advice given to you by your health care provider. Make sure you discuss any questions you have with your health care provider. Document Released: 04/14/2017 Document Revised: 04/06/2019 Document Reviewed: 04/14/2017 [employer] Patient Education 2020 [employer]. Follow Up Care 01/04/2022 11:38:18 With:NINO BARKLEY, Latrell Ding, URL Address: [facility] [address] [place] [phone] When:Within 3 Month(s) Comments:f/u in 3 months with PSA [facility] 06-28-2022 Evaluation note* Encounter Date Diagnosis Assessment Notes Treatment Notes Treatment Clinical Notes Dec, Primary osteoarthritis of left knee (ICD-10 - M17.12) 61 y/o male here with complaints of left knee pain which started 2-3 years ago. He has been seeing Dr. Gifford for this. He states he initially recieved a steroid injection to the left knee which provided short term pain relief. He most recently had gel injections to the knees which provided him with significant relief of his knee pain for approx. [address] Gifford would like to repeat the gel injections however they were denied by the insurance company. He feels his pain negatively impacts his activities of daily living. Prior to examining the patient, I reviewed progress notes from his referring physician Dr Gifford. I also independently reviewed previous imaging of the left knee which shows advanced arthropathy. Different treatment options were discussed in detail with the patient, and I recommend we proceed with Durolane injections to the left knee under ultrasound guidance. Risks and benefits of procedure explained to patient; patient verbalizes understanding. Dec, Left knee pain (ICD-10 - M25.562) Proceed with gel injection as scheduled Dec, Chronic pain (ICD-10 - G89.29) Continue with current treatment plan Dec, Other Medical deci penelope making shows a new problem to me with further workup planned or suggested with the potential for extensive treatment options that were considered with the most applicable given this patient's situation as noted above. Treatment options considered include a combination of physical therapy approaches, pharmacologic management, and interventional procedures. Those most applicable to the patient were discussed at this time. Risk of complications and/or morbidity and mortality is high given that acute and chronic pain poses a threat to life and bodily function if undertreated, poorly treated or with failure to maintain adequate treatment and timely followup. Given the serious and fluctuating nature of pain with extensive consideration for whenever pain changes, there always remains the possibility of prolonged functional impairment requiring constant patient reassessment and high-level medical decision making. The amount and complexity of data reviewed is high given that patient labs, radiology reports, and other test were obtained, reviewed and summarized as applicable from the physician portal and/or outside medical records. Pertinent positive and negative findings were considered in medical decision-making. [facility] Other 05-24-2022 Hospital Discharge instructions Patient Education 12/22/2021 14:45:19 [facility] - Cystoscopy with Urethral Dilation Discharge Instructions (CUSTOM) Cystoscopy with Urethral Dilation Voiding after the procedure: there may be some pain, urethral bleeding, burning, urgency, frequencyand blood tinged urine following the procedure. These symptoms usually resolve within 2-5 days. Drink the amount of fluid it takes to keep the urine pink to yellow or clear in color. Drinking enough water and fluids will help to ease any discomfort after your procedure. If you are having problems that seem out of the ordinary, please call. If unable to contact your physician and you feel it is an emergency, go to the nearest emergency room or call 911 Diet you may resume your normal diet. Activity you may resume your normal activities Call if you have a fever over 100 degrees Follow Up Care 12/22/2021 11:56:05 With:Latrell CHILDERS Address: [facility] [address] [place] [address]- Business (1) When:12/25/2021 14:45:07 [facility]05-04-2022 Hospital Discharge instructions Patient Education 12/02/2021 09:10:15 Acute Urinary Retention, Male Acute Urinary Retention, Male Acute urinary retention is a condition in which a person is unable to pass urine. This can last fora short time or for a long time. If left untreated, it can result in kidney damage or other seriouscomplications. What are the causes? This condition may be caused by: Obstruction or narrowing of the tube that drains the bladder (urethra). This may be caused by surgery or problems with nearby organs, such as the prostate gland, which can press or squeeze the urethra. Problems with the nerves in the bladder. These can be caused by diseases, such as multiple sclerosis, or by spinal cord injuries. Certain medicines. Tumors in the area of the pelvis, bladder, or urethra. Diabetes. Degenerative cognitive conditions such as delirium or dementia. Bladder or urinary tract infection. Constipation. Blood in the urine (hematuria). Injury to the bladder or urethra. Psychological (psychogenic) conditions. Someone may hold his urine due to trauma or because he doesnot want to use the bathroom. What increases the risk? This condition is more likely to develop in older men. As men age, their prostate may become largerand may start pressing or squeezing on the bladder or the urethra. What are the signs or symptoms? Symptoms of this condition include: Trouble urinating. Pain in the lower abdomen. Symptoms usually come on slowly over a long period of time. How is this diagnosed? This condition is diagnosed based on a physical exam and a medical history. You may also have othertests, including: An ultrasound of the bladder or kidneys or both. Blood tests. A urine analysis. Additional tests may be needed such as an MRI, kidney, or bladder function tests. How is this treated? Treatment for this condition may include: Medicines. Placing a thin, sterile tube (catheter) into the bladder to drain urine out of the body. This is called an indwelling urinary catheter. After being inserted, the catheter is held in place with a small balloon that is filled with sterile water. Urine drains from the catheter into a collection bag outside of the body. Behavioral therapy. Treatment for any underlying conditions. If needed, you may be treated in the hospital for kidney function problems or to manage other complications. Follow these instructions at home: Take tkyt-bpr-ojykflx and prescription medicines only as told by your health care provider. Avoid certain medicines, such as decongestants, antihistamines, and some prescription medicines. Do not take any medicine unless your health care provider has approved. If you were given an indwelling urinary catheter, take care of it as told by your health care provider. Drink enough fluid to keep your urine clear or pale yellow. If you were prescribed an antibiotic, take it as told by your health care provider. Do not stop taking the antibiotic even if you start to feel better. Do not use any products that contain nicotine or tobacco, such as cigarettes and e-cigarettes. If you need help quitting, ask your health care provider. Monitor any changes in your symptoms. Tell your health care provider about any changes. If instructed, monitor your blood pressure at home. Report changes as told by your health care provider. Keep all follow-up visits as told by your health care provider. This is important. Contact a health care provider if: You have uncomfortable bladder contractions that you cannot control (spasms) or you leak urine withthe spasms. Get help right away if: You have chills or fever. You have blood in your urine. You have a catheter and: ?Your catheter stops draining urine. ?Your catheter falls out. Summary Acute urinary retention is a condition in which a person is unable to pass urine. If left untreated, it can result in kidney damage or other serious complications. The cause of this condition may include an enlarged prostate. As men age, their prostate gland may become larger and may start pressing or squeezing on the bladder or the urethra. Treatment for this condition may include medicines and placement of an indwelling urinary catheter. Monitor any changes in your symptoms. Tell your health care provider about any changes. This information is not intended to replace advice given to you by your health care provider. Make sure you discuss any questions you have with your health care provider. Document Released: 10/24/2001 Document Revised: 06/30/2018 Document Reviewed: 08/19/2017 [employer] Patient Education 2020 [employer] Follow Up Care 12/02/2021 08:33:19 With:NINO BARKLEY, Latrell Ding, URL Address: [facility] [address] [place] [address]- Business (1) When: Unknown [facility] 04-20-2022 Hospital Discharge instructions Patient Education 11/18/2021 11:16:54 Prostate Cancer Prostate Cancer The prostate is a walnut-sized gland that is involved in the production of semen. It is located below a man's bladder, in front of the rectum. Prostate cancer is the abnormal growth of cells in the prostate gland. What are the causes? The exact cause of this condition is not known. What increases the risk? This condition is more likely to develop in men who: Are older than age 65. Are -Welsh. Are obese. Have a family history of prostate cancer. Have a family history of breast cancer. What are the signs or symptoms? Symptoms of this condition include: A need to urinate often. Weak or interrupted flow of urine. Trouble starting or stopping urination. Inability to urinate. Pain or burning during urination. Painful ejaculation. Blood in urine or semen. Persistent pain or discomfort in the lower back, lower abdomen, hips, or upper thighs. Trouble getting an erection. Trouble emptying the bladder all the way. How is this diagnosed? This condition can be diagnosed with: A digital rectal exam. For this exam, a health care provider inserts a gloved finger into the rectum to feel the prostate gland. A blood test called a prostate-specific antigen (PSA) test. An imaging test called transrectal ultrasonography. A procedure in which a sample of tissue is taken from the prostate and examined under a microscope (prostate biopsy). Once the condition is diagnosed, tests will be done to determine how far the cancer has spread. This is called staging the cancer. Staging may involve imaging tests, such as: A bone scan. A CT scan. A PET scan. An MRI. The stages of prostate cancer are as follows: Stage I. At this stage, the cancer is found in the prostate only. The cancer is not visible on imaging tests and it is usually found by accident, such as during a prostate surgery. Stage II. At this stage, the cancer is more advanced than it is in stage I, but the cancer has not spread outside the prostate. Stage III. At this stage, the cancer has spread beyond the outer layer of the prostate to nearby tissues. The cancer may be found in the seminal vesicles, which are near the bladder and the prostate. Stage IV. At this stage, the cancer has spread other parts of the body, such as the lymph nodes, bones, bladder, rectum, liver, or lungs. How is this treated? Treatment for this condition depends on several factors, including the stage of the cancer, your age, personal preferences, and your overall health. Talk with your health care provider about treatment options that are recommended for you. Common treatments include: Observation for early stage prostate cancer (active surveillance). This involves having exams, blood tests, and in some cases, more biopsies. For some men, this is the only treatment needed. Surgery. Types of surgeries include: ?Open surgery. In this surgery, a larger incision is made to remove the prostate. ?A laparoscopic prostatectomy. This is a surgery to remove the prostate and lymph nodes through several, small incisions. It is often referred to as a minimally invasive surgery. ?A robotic prostatectomy. This is a surgery to remove the prostate and lymph nodes with the help ofa robotic arm that is controlled by a computer. ?Orchiectomy. This is a surgery to remove the testicles. ?Cryosurgery. This is a surgery to freeze and destroy cancer cells. Radiation treatment. Types of radiation treatment include: ?External beam radiation. This type aims beams of radiation from outside the body at the prostate to destroy cancerous cells. ?Brachytherapy. This type uses radioactive needles, seeds, wires, or tubes that are implanted into the prostate gland. Like external beam radiation, brachytherapy destroys cancerous cells. An advantage is that this type of radiation limits the damage to surrounding tissue and has fewer side effects. High-intensity, focused ultrasonography. This treatment destroys cancer cells by delivering high-energy ultrasound waves to the cancerous cells. Chemotherapy medicines. This treatment kills cancer cells or stops them from multiplying. Hormone treatment. This treatment involves taking medicines that act on one of the male hormones (testosterone): ?By stopping your body from producing testosterone. ?By blocking testosterone from reaching cancer cells. Follow these instructions at home: Take nrbv-qhi-krfxxtb and prescription medicines only as told by your health care provider. Maintain a healthy diet. Get plenty of sleep. Consider joining a support group for men who have prostate cancer. Meeting with a support group mayhelp you learn to cope with the stress of having cancer. Keep all follow-up visits as told by your health care provider. This is important. If you have to go to the hospital, notify your cancer specialist (oncologist). Treatment for prostate cancer may affect sexual function. Continue to have intimate moments with your partner. This may include touching, holding, hugging, and caressing. Contact a health care provider if: You have trouble urinating. You have blood in your urine. You have pain in your hips, back, or chest. Get help right away if: You have weakness or numbness in your legs. You cannot control urination or your bowel movements (incontinence). You have trouble breathing. You have sudden chest pain. You have chills or a fever. Summary The prostate is a walnut-sized gland that is involved in the production of semen. It is located below a man's bladder, in front of the rectum. Prostate cancer is the abnormal growth of cells in the prostate gland. Treatment for this condition depends on several factors, including the stage of the cancer, your age, personal preferences, and your overall health. Talk with your health care provider about treatment options that are recommended for you. Consider joining a support group for men who have prostate cancer. Meeting with a support group mayhelp you learn to cope with the stress of having cancer. This information is not intended to replace advice given to you by your health care provider. Make sure you discuss any questions you have with your health care provider. Document Released: 07/18/2006 Document Revised: 06/30/2018 Document Reviewed: 03/28/2017 [employer] Patient Education 2020 [employer]. Follow Up Care 11/11/2021 13:06:30 With:NINO BARKLEYLatrell, URL Address: [facility] [address] [place] [address]- [phone] When:01/18/2022 [facility] 04-13-2022 Hospital Discharge instructions Patient Education 11/11/2021 12:38:38 Prostate Cancer Prostate Cancer The prostate is a walnut-sized gland that is involved in the production of semen. It is located below a man's bladder, in front of the rectum. Prostate cancer is the abnormal growth of cells in the prostate gland. What are the causes? The exact cause of this condition is not known. What increases the risk? This condition is more likely to develop in men who: Are older than age 65. Are -Wel[place]. Are obese. Have a family history of prostate cancer. Have a family history of breast cancer. What are the signs or symptoms? Symptoms of this condition include: A need to urinate often. Weak or interrupted flow of urine. Trouble starting or stopping urination. Inability to urinate. Pain or burning during urination. Painful ejaculation. Blood in urine or semen. Persistent pain or discomfort in the lower back, lower abdomen, hips, or upper thighs. Trouble getting an erection. Trouble emptying the bladder all the way. How is this diagnosed? This condition can be diagnosed with: A digital rectal exam. For this exam, a health care provider inserts a gloved finger into the rectum to feel the prostate gland. A blood test called a prostate-specific antigen (PSA) test. An imaging test called transrectal ultrasonography. A procedure in which a sample of tissue is taken from the prostate and examined under a microscope (prostate biopsy). Once the condition is diagnosed, tests will be done to determine how far the cancer has spread. This is called staging the cancer. Staging may involve imaging tests, such as: A bone scan. A CT scan. A PET scan. An MRI. The stages of prostate cancer are as follows: Stage I. At this stage, the cancer is found in the prostate only. The cancer is not visible on imaging tests and it is usually found by accident, such as during a prostate surgery. Stage II. At this stage, the cancer is more advanced than it is in stage I, but the cancer has not spread outside the prostate. Stage III. At this stage, the cancer has spread beyond the outer layer of the prostate to nearby tissues. The cancer may be found in the seminal vesicles, which are near the bladder and the prostate. Stage IV. At this stage, the cancer has spread other parts of the body, such as the lymph nodes, bones, bladder, rectum, liver, or lungs. How is this treated? Treatment for this condition depends on several factors, including the stage of the cancer, your age, personal preferences, and your overall health. Talk with your health care provider about treatment options that are recommended for you. Common treatments include: Observation for early stage prostate cancer (active surveillance). This involves having exams, blood tests, and in some cases, more biopsies. For some men, this is the only treatment needed. Surgery. Types of surgeries include: ?Open surgery. In this surgery, a larger incision is made to remove the prostate. ?A laparoscopic prostatectomy. This is a surgery to remove the prostate and lymph nodes through several, small incisions. It is often referred to as a minimally invasive surgery. ?A robotic prostatectomy. This is a surgery to remove the prostate and lymph nodes with the help ofa robotic arm that is controlled by a computer. ?Orchiectomy. This is a surgery to remove the testicles. ?Cryosurgery. This is a surgery to freeze and destroy cancer cells. Radiation treatment. Types of radiation treatment include: ?External beam radiation. This type aims beams of radiation from outside the body at the prostate to destroy cancerous cells. ?Brachytherapy. This type uses radioactive needles, seeds, wires, or tubes that are implanted into the prostate gland. Like external beam radiation, brachytherapy destroys cancerous cells. An advantage is that this type of radiation limits the damage to surrounding tissue and has fewer side effects. High-intensity, focused ultrasonography. This treatment destroys cancer cells by delivering high-energy ultrasound waves to the cancerous cells. Chemotherapy medicines. This treatment kills cancer cells or stops them from multiplying. Hormone treatment. This treatment involves taking medicines that act on one of the male hormones (testosterone): ?By stopping your body from producing testosterone. ?By blocking testosterone from reaching cancer cells. Follow these instructions at home: Take jmvg-gvu-gnwjjqj and prescription medicines only as told by your health care provider. Maintain a healthy diet. Get plenty of sleep. Consider joining a support group for men who have prostate cancer. Meeting with a support group mayhelp you learn to cope with the stress of having cancer. Keep all follow-up visits as told by your health care provider. This is important. If you have to go to the hospital, notify your cancer specialist (oncologist). Treatment for prostate cancer may affect sexual function. Continue to have intimate moments with your partner. This may include touching, holding, hugging, and caressing. Contact a health care provider if: You have trouble urinating. You have blood in your urine. You have pain in your hips, back, or chest. Get help right away if: You have weakness or numbness in your legs. You cannot control urination or your bowel movements (incontinence). You have trouble breathing. You have sudden chest pain. You have chills or a fever. Summary The prostate is a walnut-sized gland that is involved in the production of semen. It is located below a man's bladder, in front of the rectum. Prostate cancer is the abnormal growth of cells in the prostate gland. Treatment for this condition depends on several factors, including the stage of the cancer, your age, personal preferences, and your overall health. Talk with your health care provider about treatment options that are recommended for you. Consider joining a support group for men who have prostate cancer. Meeting with a support group mayhelp you learn to cope with the stress of having cancer. This information is not intended to replace advice given to you by your health care provider. Make sure you discuss any questions you have with your health care provider. Document Released: 07/18/2006 Document Revised: 06/30/2018 Document Reviewed: 03/28/2017 [employer] Patient Education 2020 [employer]. Follow Up Care 11/10/2021 10:43:31 With:NINO BARKLEY, Latrell Ding, URL Address: [facility] [address] , [place] [address] [phone] When: Unknown [facility] 04-11-2022 Hospital Discharge instructions Patient Education 11/09/2021 13:53:04 Calorie Counting for Weight Loss Calorie Counting for Weight Loss Calories are units of energy. Your body needs a certain amount of calories from food to keep you going throughout the day. When you eat more calories than your body needs, your body stores the extra calories as fat. When you eat fewer calories than your body needs, your body [place] fat to get the energy it needs. Calorie counting means keeping track of how many calories you eat and drink each day. Calorie counting can be helpful if you need to lose weight. If you make sure to eat fewer calories than your bodyneeds, you should lose weight. Ask your health care provider what a healthy weight is for you. For calorie counting to work, you will need to eat the right number of calories in a day in order to lose a healthy amount of weight per week. A dietitian can help you determine how many calories youneed in a day and will give you suggestions on how to reach your calorie goal. A healthy amount of weight to lose per week is usually 1 2 lb (0.5 0.9 kg). This usually means thatyour daily calorie intake should be reduced by 500 750 calories. Eating 1,200 1,500 calories per day can help most women lose weight. Eating 1,500 1,800 calories per day can help most men lose weight. What is my plan? My goal is to have calories per day. If I have this many calories per day, I should lose around pounds per week. What do I need to know about calorie counting? In order to meet your daily calorie goal, you will need to: Find out how many calories are in each food you would like to eat. Try to do this before you eat. Decide how much of the food you plan to eat. Write down what you ate and how many calories it had. Doing this is called keeping a food log. To successfully lose weight, it is important to balance calorie counting with a healthy lifestyle that includes regular activity. Aim for 150 minutes of moderate exercise (such as walking) or 75 minutes of vigorous exercise (such as running) each week. Where do I find calorie information? The number of calories in a food can be found on a Nutrition Facts label. If a food does not have aNutrition Facts label, try to look up the calories online or ask your dietitian for help. Remember that calories are listed per serving. If you choose to have more than one serving of a food, you will have to multiply the calories per serving by the amount of servings you plan to eat. Forexample, the label on a package of bread might say that a serving size is 1 slice and that there are 90 calories in a serving. If you eat 1 slice, you will have eaten 90 calories. If you eat 2 slices, you will have eaten 180 calories. How do I keep a food log? Immediately after each meal, record the following information in your food log: What you ate. Don't forget to include toppings, sauces, and other extras on the food. How much you ate. This can be measured in cups, ounces, or number of items. How many calories each food and drink had. The total number of calories in the meal. Keep your food log near you, such as in a small notebook in your pocket, or use a mobile pito or website. Some programs will calculate calories for you and show you how many calories you have left forthe day to meet your goal. What are some calorie counting tips? Use your calories on foods and drinks that will fill you up and not leave you hungry: ?Some examples of foods that fill you up are nuts and nut butters, vegetables, lean proteins, and high-fiber foods like whole grains. High-fiber foods are foods with more than 5 g fiber per serving. ?Drinks such as sodas, specialty coffee drinks, alcohol, and juices have a lot of calories, yet do not fill you up. Eat nutritious foods and avoid empty calories. Empty calories are calories you get from foods or beverages that do not have many vitamins or protein, such as candy, sweets, and soda. It is better to have a nutritious high-calorie food (such as an avocado) than a food with few nutrients (such as a bag of chips). Know how many calories are in the foods you eat most often. This will help you calculate calorie counts faster. Pay attention to calories in drinks. Low-calorie drinks include water and unsweetened drinks. Pay attention to nutrition labels for low fat or fat free foods. These foods sometimes have thesame amount of calories or more calories than the full fat versions. They also often have added sugar, starch, or salt, to make up for flavor that was removed with the fat. Find a way of tracking calories that works for you. Get creative. Try different apps or programs ifwriting down calories does not work for you. What are some portion control tips? Know how many calories are in a serving. This will help you know how many servings of a certain food you can have. Use a measuring cup to measure serving sizes. You could also try weighing out portions on a kitchenscale. With time, you will be able to estimate serving sizes for some foods. Take some time to put servings of different foods on your favorite plates, bowls, and cups so you know what a serving looks like. Try not to eat straight from a bag or box. Doing this can lead to overeating. Put the amount you would like to eat in a cup or on a plate to make sure you are eating the right portion. Use smaller plates, glasses, and bowls to prevent overeating. Try not to multitask (for example, watch TV or use your computer) while eating. If it is time to eat, sit down at a table and enjoy your food. This will help you to know when you are full. It will also help you to be aware of what you are eating and how much you are eating. What are tips for following this plan? Reading food labels Check the calorie count compared to the serving size. The serving size may be smaller than what youare used to eating. Check the source of the calories. Make sure the food you are eating is high in vitamins and proteinand low in saturated and trans fats. Shopping Read nutrition labels while you shop. This will help you make healthy decisions before you decide to purchase your food. Make a grocery list and stick to it. Cooking Try to cook your favorite foods in a healthier way. For example, try baking instead of frying. Use low-fat dairy products. Meal planning Use more fruits and vegetables. Half of your plate should be fruits and vegetables. Include lean proteins like poultry and fish. How do I count calories when eating out? Ask for smaller portion sizes. Consider sharing an entree and sides instead of getting your own entree. If you get your own entree, eat only half. Ask for a box at the beginning of your meal and put the rest of your entree in it so you are not tempted to eat it. If calories are listed on the menu, choose the lower calorie options. Choose dishes that include vegetables, fruits, whole grains, low-fat dairy products, and lean protein. Choose items that are boiled, broiled, grilled, or steamed. Stay away from items that are buttered,battered, fried, or served with cream sauce. Items labeled crispy are usually fried, unless stated otherwise. Choose water, low-fat milk, unsweetened iced tea, or other drinks without added sugar. If you want an alcoholic beverage, choose a lower calorie option such as a glass of wine or light beer. Ask for dressings, sauces, and syrups on the side. These are usually high in calories, so you should limit the amount you eat. If you want a salad, choose a garden salad and ask for grilled meats. Avoid extra toppings like hong, cheese, or fried items. Ask for the dressing on the side, or ask for olive oil and vinegar or lemon to use as dressing. Estimate how many servings of a food you are given. For example, a serving of cooked rice is cup orabout the size of half a baseball. Knowing serving sizes will help you be aware of how much food you are eating at restaurants. The list below tells you how big or small some common portion sizes arebased on everyday objects: ?1 oz 4 stacked dice. ?3 oz 1 deck of cards. ?1 tsp 1 . ?1 Tbsp a ping-pong ball. ?2 Tbsp 1 ping-pong ball. ? cup baseball. ?1 cup 1 baseball. Summary Calorie counting means keeping track of how many calories you eat and drink each day. If you eat fewer calories than your body needs, you should lose weight. A healthy amount of weight to lose per week is usually 1 2 lb (0.5 0.9 kg). This usually means reducing your daily calorie intake by 500 750 calories. The number of calories in a food can be found on a Nutrition Facts label. If a food does not have aNutrition Facts label, try to look up the calories online or ask your dietitian for help. Use your calories on foods and drinks that will fill you up, and not on foods and drinks that will leave you hungry. Use smaller plates, glasses, and bowls to prevent overeating. This information is not intended to replace advice given to you by your health care provider. Make sure you discuss any questions you have with your health care provider. Document Released: 07/18/2006 Document Revised: 04/06/2019 Document Reviewed: 06/17/2017 [employer] Patient Education 2020 [employer]. 11/09/2021 13:52:18 Cancer Screening for Men Cancer Screening for Men A cancer screening is a test or exam that checks for cancer. Your health care provider will recommend specific cancer screenings based on your age, personal history, and family history of cancer. Work with your health care provider to create a cancer screening schedule that protects your health. Why is cancer screening done? Cancer screening is done to look for cancer in the very early stages, before it spreads and becomesharder to treat and before you would start to notice symptoms. Finding cancer early improves the chances of successful treatment. It may save your life. Who should be screened for cancer? All men should be screened for colorectal cancer and skin cancer. Your health care provider may recommend screenings for other types of cancer if: You had cancer before. You have a family member with cancer. You have abnormal genes that could increase the risk of cancer. You have risk factors for certain cancers, such as smoking. When you should be screened for cancer depends on: Your age. Your medical history and your family's medical history. Certain lifestyle factors, such as smoking. Environmental exposure, such as to asbestos. What are some common cancer screenings? Lung cancer Lung cancer screening is done with a CT scan that looks for abnormal cells in the lungs. Discuss lung cancer screening with your health care provider if you are 55 74 years old and if any of the following apply to you: You currently smoke. You used to smoke heavily. You have a smoking history of 1 pack a day for 30 years or 2 packs a day for 15 years. You have quit smoking within the past 15 years. If you smoke heavily or if you used to smoke, you may need to be screened every year. Prostate cancer Prostate cancer screening is done with blood tests and an exam in which a health care provider usesa gloved finger to check prostate size (digital rectal exam). You may need to be screened for prostate cancer if: You have risk factors of prostate cancer, such as being or having a close family member with prostate cancer. You have inherited gene changes or a genetic condition, including BRCA1 or BRCA2 gene mutations or Henning syndrome. You have symptoms of prostate cancer, such as problems urinating or erectile dysfunction. Prostate cancer screening for men with average risk may start at age 50. Men with risk factors may need to be screened earlier at age 40 45. Once you have been screened for prostate cancer, future screening may be recommended based on the results of your blood tests. Colorectal cancer All adults should have screening for colorectal cancer starting at age 50 and continuing until age 75. Your health care provider may recommend screening at age 45. You will have tests every 1 10 years, depending on your results and the type of screening test. If you have a family history of colon or rectal cancer or other risk factors, you may need to start having screenings earlier. Talk with your health care provider about which screening test is right for you and how often you should be screened. Colorectal cancer screening looks for cancer or for growths called polyps that often form before cancer starts. Tests to look for cancer or polyps include: Colonoscopy or flexible sigmoidoscopy. For these procedures, a flexible tube with a small camera isinserted into the rectum. CT colonography. This test uses X-rays and a contrast dye to check the colon for polyps. If a polypis found, you may need to have a colonoscopy so the polyp can be located and removed. Tests to look for cancer in the stool (feces) include: Guaiac-based fecal occult blood test (FOBT). This test detects blood in stool. It can be done at home with a kit. Fecal immunochemical test (FIT). This test detects blood in stool. For this test, you will need to collect stool samples at home. Stool DNA test. This test looks for blood in stool and any changes in DNA that can lead to colon cancer. For this test, you will need to collect a stool sample at home and send it to a lab. Skin cancer Skin cancer screening is done by checking the skin for unusual moles or spots and any changes in existing moles. Your health care provider should check your skin for signs of skin cancer at every physical exam. You should check your skin every month and tell your health care provider right away if anything looks unusual. Men with a hfuybl-jerf-ddhvar risk for skin cancer may want to see a aircraft skin burnisher (cocoa roaster) for an annual body check. Where to find more information National Cancer [place]: https://www.cancer.gov/about-cancer/screening Centers for Disease Control and Prevention: https://www.cdc.gov/cancer/dcpc/prevention/screening.htm [employer]: https://www.cancer.org/latest-news/7-ctforh-mxdrnfyiv-hvsxb-hyx-glp.html Contact a health care provider if: You have concerns about any signs or symptoms of cancer, such as: ?Moles that have an unusual shape or color. ?Changes in existing moles. ?A sore on your skin that does not heal. ?Blood in your urine or stool. ?Fatigue that does not go away. ?Frequent pain or cramping in your abdomen. ?Coughing or trouble breathing that does not go away. ?Coughing up blood. ?Losing weight without trying. ?Changes in urination habits. ?Painful urination or ejaculation. Summary Be aware of and watch for signs and symptoms of cancer, especially symptoms of lung cancer, prostate cancer, colorectal cancer, and skin cancer. Early detection of cancer with cancer screening may save your life. Talk with your health care provider about your specific cancer risks. Work together with your health care provider to create a cancer screening plan that is right for you. This information is not intended to replace advice given to you by your health care provider. Make sure you discuss any questions you have with your health care provider. Document Released: 04/14/2017 Document Revised: 04/06/2019 Document Reviewed: 04/14/2017 [employer] Patient Education 2020 [employer]. Follow Up Care 10/19/2021 14:22:44 With:NINO BARKLEY, Latrell Ding, URL Address: [facility] [address], [place] [address]- [phone] When: Unknown Comments:Will schedule Cysto, Pos UD [facility] 03-11-2022 History general Narrative - Reported* Type Description Date Medical History hypercholestolemia Medical History prostate cancer Surgical History prostatectomy d/t cancer 2 Surgical History hernia repair Surgical History testicular removed on the right Hospitalization History see above [facility] Other 03-11-2022 History general Narrative - Reported* Type Description Date Medical History hypercholestolemia Medical History prostate cancer Surgical History prostatectomy d/t cancer 2 Surgical History hernia repair Surgical History testicular removed on the right 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 Hospitalization History see above [facility] Other 02-28-2022 NoteEXAMINATION: XR CHEST 2 V HISTORY: Pre-surgery evaluation COMPARISON: No relevant comparison available. TECHNIQUE: FINDINGS: LUNGS: No significant pulmonary parenchymal abnormalities. VASCULATURE: No increased pulmonary vasculature. PLEURA: No pneumothorax, effusion, or pleural thickening. CARDIAC: No cardiomegaly or cardiac silhouette abnormality. MEDIASTINUM: No visible mass or adenopathy. BONES: No fracture or visible bone lesion. OTHER: Negative. IMPRESSION: No acute disease. Electronically authenticated by: JOSSY GRACE Date: 2021-09-28 10:01[facility]12-22-2021 Evaluation + Plan note Future Scheduled Tests Laboratory* PT & PTT 07/22/21 * BUN 07/22/21 * Creatinine 07/22/21 * Electrolyte Panel 07/22/21 * CBC w/ Auto Diff 07/22/21 [facility] evaluation + Plan note Future Appointments Appointment Date:11/18/2021 10:30:00 AM Scheduled Provider:Latrell CHILDERS MD Location[facility] Appointment Type:URO Office Visit Future Scheduled Tests Laboratory* PT & PTT 07/22/21 * BUN 07/22/21 * Creatinine 07/22/21 * Electrolyte Panel 07/22/21 * CBC w/ Auto Diff 07/22/21 [facility] Evaluation + Plan note Future Appointments Appointment Date:01/27/2022 09:45:00 AM Scheduled Provider:Latrell CHILDERS MD Location:[facility] Appointment Type:URO Office Visit Diagnostic Tests Pending * PSA Total 11/18/21 Future Scheduled Tests Laboratory* PT & PTT 07/22/21 * BUN 07/22/21 * Creatinine 07/22/21 * Electrolyte Panel 07/22/21 * CBC w/ Auto Diff 07/22/21 [facility] Evaluation + Plan note Future Appointments Appointment Date:12/03/2021 10:00:00 AM Scheduled Provider: Location:[facility] Appointment Type:URO Nurse Visit Appointment Date:01/27/2022 09:45:00 AM Scheduled Provider:Latrell CHILDERS MD Location:[facility] Appointment Type:URO Office Visit Future Scheduled Tests Laboratory* PT & PTT 07/22/21 * BUN 07/22/21 * Creatinine 07/22/21 * Electrolyte Panel 07/22/21 * CBC w/ Auto Diff 07/22/21 [facility] evaluation + Plan note Future Appointments Appointment Date:01/27/2022 09:45:00 AM Scheduled Provider:Latrell CHILDERS MD Location:[facility] Appointment Type:URO Office Visit Future Scheduled Tests Laboratory* PT & PTT 07/22/21 * BUN 07/22/21 * Creatinine 07/22/21 * Electrolyte Panel 07/22/21 * CBC w/ Auto Diff 07/22/21 [facility] evaluation + Plan note Future Appointments Appointment Date:05/17/2022 11:45:00 AM Scheduled Provider:Latrell CHILDERS MD Location:[facility] Appointment Type:URO Office Visit Diagnostic Tests Pending * PSA Total 02/08/22 Future Scheduled Tests Laboratory* PT & PTT 07/22/21 * BUN 07/22/21 * Creatinine 07/22/21 * Electrolyte Panel 07/22/21 * CBC w/ Auto Diff 07/22/21 [facility] evaluation + Plan note Future Appointments Appointment Date:08/16/2022 03:30:00 PM Scheduled Provider:Latrell CHILDERS MD Location:[facility] Appointment Type:URO Office Visit Diagnostic Tests Pending * PSA Total 05/17/22 Future Scheduled Tests Laboratory* PT & PTT 07/22/21 * BUN 07/22/21 * Creatinine 07/22/21 * Electrolyte Panel 07/22/21 * CBC w/ Auto Diff 07/22/21 [facility] evaluation + Plan note Future Appointments Appointment Date:02/21/2023 03:30:00 PM Scheduled Provider:Latrell CHILDERS MD Location:[facility] Appointment Type:URO Office Visit Diagnostic Tests Pending * PSA Total 08/16/22 [facility] evaluation + Plan note Future Appointments Appointment Date:12/10/2024 03:00:00 PM Scheduled Provider:Latrell CHILDERS MD Location:[facility] Appointment Type:URO Office Visit Diagnostic Tests Pending * PSA Total 12/05/23 [facility] evaluation noteNo [place] Other Evaluation noteNo assessment information available [facility] Work Phone: Hospital course Narrative No data available for this section [facility] Hospital Discharge instructions No data available for this section [facility] [place] note No data available for this section [facility] Summary Purpose Family History No Family History Records Found Relationship Condition Age at Onset Recorded Date/T davon Not Specified Unknown family medical history Unknown Advance Directives No Advanced Directives Records Found Advance Directive Response Recorded Date/ Time Advance Directives No June 12:54pm Chief Complaint and Reason for Visit Chief Complaint Knee Pain Additional Source Comments (unrecognized sect ion and content) No Status Records FoundNo Status Records FoundNo Status Records FoundNo Status Records FoundNo Status Records Found INFORMATION SOURCE (unrecogn ized section and content) DATE CREATED AUTHOR 12/11/2021 [facility] DATE CREATED AUTHOR AUTHOR'S ORGANIZ ATION 04/27/2022 [facility] DATE CREATED AUTHOR AUTHOR'S ORGANIZ ATION 08/18/2022 [facility] DATE CREATED AUTHOR AUTHOR'S ORGANIZ ATION 12/06/2023 [facility] DATE CREATED AUTHOR AUTHOR'S ORGANIZ ATION 07/21/2024 [facility] REASON FOR VISIT (unrecogniz ed section and content) REF BY DR GIFFORD FOR OSTEO ARTHRITIS LEFT KNEEDUROLANE INJ TO LEFT KNEEFOLLOW UP AFTER DURLOANE TO LEFT KNEELEFT GENICULAR NERVE BLOCK/ELKNEE PAIN. FOLLOW UP AFTER LEFT GENICULAR NBSORE THROAT COUGH CONGESTIONCOVID TEST, HEAD COLD, MUSCLE ACHES, PAINS, HOT AND COLD Care Team (unrecognized sect ion and content) Team Status: Inactive Member Role Status Dates Marco Antonio Dent , DO Primary Care Provider Active Sheldon Huff MD Attending Provider Active Team Status: Active Member Role Status Dates Marco Antonio Dent , DO Primary Care Provider Active FOR RECORDS PERTAINING TO PATIENTS WHO ARE OR HAVE BEEN ENROLLED IN A CHEMICAL DEPENDENCY/SUBSTANCEABUSE PROGRAM, SOME INFORMATION MAY BE OMITTED. This clinical summary was aggregated from multiple sources. Caution should be exercised in using it in the provision of clinical care. This summary normalizes information from multiple sources, and as a consequence, information in this document may materially change the coding, format and clinical context of patient data. In addition, data may be omitted in some cases. CLINICAL DECISIONS SHOULD BE BASED ON THE PRIMARY CLINICAL RECORDS. [employer] provides no warranty or guarantee of the accuracy or completeness of information in this document.
--- NOTE | 2024-08-23 15:14 | PM.CN ---
Consult Note: HPI Data of Consult Patient: new to practice Requesting Physician: Haylee Razo NP Primary Care Provider: ANGEL LUIS HOLT Consult Narrative Reason for consult: establish Narrative: Eric Hoyos a pleasant 63 year old male presents for evaluation of chronic neck pain. pain increasing over the last 3 years without injury or known cause. hx of cervical DDD and facet arthropathy on recent cervical xray. has engaged in provider guided HEP >6 weeks without improvement, notes increased pain. 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 pt denies numbness tingling weakness of BUE. has failed tylenol and ibuprofen as well as diclofenac gel. utilizes heat with no relief. cc:: CC: Haylee Razo NP Review of Systems ROS Status of ROS 10 or more systems reviewed and unremarkable except as noted in history and below Musculoskeletal Reports: neck pain Exam Constitutional Documenting provider has reviewed patient's vital signs: yes Common normals: no apparent distress, oriented x3, healthy appearing, alert and well nourished General appearance: cooperative HENMT Common normals: normocephalic, hearing grossly normal bilaterally and moist oral mucous membranes Head and scalp: normocephalic Eye Common normals: PERRL Pupil: PERRL Neck & C-Spine Common normals: full ROM General: normal visual inspection Cervical spine: cervical ROM abnormal, pain with cervical ROM and cervical spine tenderness Other: positive facet loading tenderness C3-6 facets strength 5/5 in BUE no radiculopathy on exam Chest Common normals: inspection of chest normal Respiratory Common normals: normal respiratory effort, no retractions and no use of accessory muscles Neuro Common normals: oriented x3, CN's II-XII intact bilaterally, moves all extremities, no focal motor deficits, no sensory deficits noted and deep tendon reflexes 2+ bilaterally Sensorium/orientation: alert Motor exam: strength 5/5 throughout and no movement abnormalities noted Psych Common normals: mental status grossly normal, thought process normal, cooperative, affect normal, speech normal and activity/motor behavior normal Speech: normal speech Thought process: normal thought process Results Additional Findings Additional findings: If on a controlled substance or opioids, I have checked an [place]AR[place] report on this patient and there are no aberrancies noted in the prescribing history.??If on a controlled substance or opioid a drug screen was completed and reviewed within the last year, and if there has not been a drug screen completed we ordered one today to monitor higher risk, state monitored pain medication use. As part of providing excellent, safe, comprehensive care, the following was completed at our patient's visit: 1. A medication reconciliation and review to ensure accurate knowledge of current/active medications, including asking our patients to inform us about any [id number] medications or herbal remedies/nutritional supplements/alternative remedies. 2. A review to specifically ensure our patients have had annual screening for screening for depression, screening for tobacco use, and screening for unhealthy alcohol use. For concerning screenings had a discussion with the patient, provided patient education, and recommended follow-up with primary care provider when appropriate. If patient noted with a risk of falling, they received education on strength, gait, and balance training to prevent future risk of falling. Portions of this note may have been carried over from the previous visit and updated as appropriate. Please note this office utilizes paper charting in addition to the electronic medical record. A list of current medications, vitals, and PMH is available there as the clinical staff outside of myself do not have access to [employer] [facility] [employer] charting during the clinic day operations. As part of providing quality comprehensive care the current medications, vitals, and PMH were reviewed in the paper chart. Assessment and Plan Assessment and Plan (1) Cervical spondylosis: (2) Degenerative disc disease, cervical: Plan The patient has had over 3 months of moderate to severe neck pain with functional impairment and inadequate response to conservative care including NSAIDS (unless there are contraindication such as concurrent blood thinners), multiple oral or topical pain medications, and home exercise program/physical therapy.? Patient has completed >6 weeks of guided home exercise program and/or formal physical therapy program without relief of their symptoms.? I have reviewed the imaging of the cervical spine and no red flags were identified.? The imaging reveals radiographic findings consistent with cervical spondylosis and DDD The Oswestry Disability Index was completed, and the patient scored a 12%.? The patient noted the following:?? moderate to severe pain impacting sleep and ADLs We discussed the risks and benefits of the procedure with the patient, and we are NOT planning on using sedation as outlined in the guidelines from Medicare unless there is a documented reason that sedation would be strongly recommended.??The procedure will be completed with fluoroscopic guidance.? bilateral C4-5 C5-6 MBB x2 working towards RFA under fluoroscopy, risks vs benefits reviewed defer cervical MRI continue current medications continue HEP as tolerated f/u after each injection
== END 2024-08-23 14:36 | disposition home or self-care (01) ==
LOC: PM 14:35
PROVIDERS: PCP Family Medicine; Visit Provider Nurse Practitioner
DX: M47.812 Spondylosis without myelopathy or radiculopathy, cervical region (principal); M50.30 Other cervical disc degeneration, unspecified cervical region
CPT/HCPCS: G0463

== ENCOUNTER 2024-11-29 15:33 | Outpatient (OUT) | payer OTHER, SELFPAY ==
[2024-11-29 17:05] LABS: Prostate Specific Antigen Dx <0.13 ng/mL (<=4.00)
== END 2024-11-29 15:34 | disposition home or self-care (01) ==
LOC: LAB 15:33
PROVIDERS: PCP Family Medicine; Visit Provider Urology
DX: Z85.46 Personal history of malignant neoplasm of prostate (principal); Z80.42 Family history of malignant neoplasm of prostate
CPT/HCPCS: 36415; 84153

== ENCOUNTER 2025-02-06 16:35 | Outpatient (OUT) | payer OTHER, SELFPAY ==
--- NOTE | 2025-02-06 | XR_ITS ---
[facility] [place] [id number] Patient Name: TRINO DELGADO MRN: [id number] date: 1960 Sex: M Assigned Patient Location: [facility] Current Patient Location: Accession/Order Number: [id number] Exam Date: 02/07/2025 09:07 Report Date: 02/07/2025 09:11 At the request of: ANGEL LUIS HOLT Procedure: XR lumbar spine 2-3V LUMBAR SPINE - 2 VIEWS COMPARISON: None CLINICAL DATA: Low back pain for the past 2 weeks after yard work. AP and lateral views were obtained. No definite acute compression fractures are identified. There is slight retrolisthesis of L1 on L2, L2 on L3 and L5 on S1. There is disc space narrowing at L1-2 and L2-3 with anterior endplate sclerosis as well as spurring. There is also mild disc space narrowing at the lumbosacral junction. There is lower lumbar facet disease. The SI joints are intact and show minor sclerosis. There is mild atherosclerotic plaque at the aorta. No other paraspinal soft tissue abnormalities are noted. XR/XR lumbar spine 2-3V IMPRESSION: DEGENERATIVE CHANGES. NO DEFINITE ACUTE BONY FINDINGS. Impression dictated by: Libby Salas M.D. 02/07/2025 9:11 AM Dictation Location: [place] [id number] Electronically authenticated by: [id number] Date: 02/07/2025 09:11
--- OUTSIDE RECORDS SUMMARY | 2025-02-06 22:08 | XMS_ITS | CCD ---
Author Organization [facility] CliniSyar Care Team Providers Care Supervisor [employer] Name Role Phone MARCO ANTONIO DENT Primary Care Physician [phone] Sheldon Huff Marco Antonio Dent Primary Care Unavailable Sheldon Huff Attending Unavailable Sheldon Huff Admitting Unavailable Misti Gagnon Attending Unavailable Misti Gagnon Admitting Unavailable Marco Antonio Dent Primary Care Unavailable Jailene, DO Bernard Primary Care Provider MD Sheldon Huff Attending Provider NINO, DR HURLEY Admitting Unavailable CHILDERS, DR HURLEY Attending Unavailable FURSTEFF, DR MARCO ANTONIO Kinsey Referring Unavailable CHILDERS, [...] Care Unavailable CHILDERS, DR HURLEY Consulting Unavailable CHILDERS, DR HURLEY Admitting Unavailable CHILDERS, DR HURLEY Attending Unavailable FURLONG, DR MARCO ANTONIO Kinsey Primary Care Unavailable CHILDERS, DR HURLEY Consulting Unavailable JAILENE, DR MARCO ANTONIO Kinsey Primary Care Unavailable PAY, DR MEDRANO Admitting Unavailable PAY, DR MEDRANO Attending Unavailable PAY, DR MEDRANO Consulting Unavailable HAY, DR MILAN Consulting Unavailable CHILDERS, DR HURLEY Admitting Unavailable CHILDERS, DR HURLEY Attending Unavailable FURLONG, DR MARCO ANTONIO Kinsey Primary Care Unavailable NINO, DR HURLEY Consulting Unavailable OLGA, DR JOSSY Stephen Consulting Unavailable ANTON ALFONSO Consulting Unavailable NINO, DR HURLEY Admitting Unavailable NINO, DR HURLEY Attending Unavailable [place]IG[place], DR MARCO ANTONIO Kinsey Primary Care Unavailable CHILDERS, DR HURLEY Consulting Unavailable DominguezFide lyons Unavailable Annelise Adame Unavailable JAILENE, MARCO ANTONIO Kinsey Attending Unavailable [facility], MARCO ANTONIO Kinsey Referring Unavailable [facility], MARCO ANTONIO Kinsey Primary Care Unavailable FURNG, MARCO ANTONIO Kinsey Attending Unavailable [facility], MARCO ANTONIO Kinsey Referring Unavailable [facility], MARCO ANTONIO Kinsey Primary Care Unavailable [facility] DO, Marco Antonio Kinsey Primary [facility] Provider [facility] Marco Antonio HARDY Primary Care Provider [phone] Latrell CHILDERS Attending Unavailable Latrell CHILDERS Attending Unavailable Allergies Allergy Classification Reported Allergen(s) Allergy Type Date of Onset Reaction(s) Facility (1 source) Unable to Assess Drug allergy (disorder) [facility] Repository (1 source) No Known Medication Allergies; Translations: [No Known Medication Allergies] Propensity to adverse reactions (disorder) [facility] Repository Medications Current Medications Medication Drug Class(es) Dates Sig (Normalized) Sig (Original) acetaminophen 325 mg oral tablet (16 sources) Start: 04-14-2022 take 2 tablets by mouth every six hours Acetaminophen (Tylenol) 325 mg Tablet Active 650 MG PO Q6H April 14, 2022 12:00am Start: 08-06-2021 take 2 tablets by mo uth every four hours as needed for pain Tylenol 325 mg Tab 650 mg = 2 tab(s), Oral, q4hr, PRN as needed for pain, Refills(s) 0 Start Date: 08/06/21 Status: Ordered acetaminophen 50 0 mg capsule Take by mouth. Active [employer] Joint [employer] Muscle (8 sources) Start: 08-06-2021 [employer] Joint [employer] Muscle 1 application, Topical, BID Muscle pain, Refill(s) 0 Start Date: 08/06/21 Status: Ordered atorvastatin 10 mg oral tablet (20 sources) HMG-CoA Reductase Inhibitor Start: 06-18-2021 End: 12-03-2024 take 1 tablet by mouth once daily atorvastatin (LIPITOR) 10 mg tablet TAKE 1 TABLET BY MOUTH DAILY 90 tablet 2 12/03/2024 Active celecoxib 200 mg oral capsule (11 sources) [...] BID, # 14 cap(s), Refills(s) 0, Pharmacy: [address], 182, cm, 11/09/21 13:21:00 EDT, Height/Length Dosing, 90, kg, 11/09/21 13:21:00 EDT, Weight Dosing Start Date: 11/09/21 Status: Ordered diclofenac sodium 0.03 mg/mg topical gel (9 sources) Nonsteroidal Anti-inflammatory Drug Start: 06-28-2022 End: 12-19-2023 diclofenac sodium (SOLARAZE) 3 % gel Indications: Primary osteoarthritis of left knee apply topically twice a day 100 g 5 12/19/2023 Active Voltaren 1 % as directed Externally Active [...] Refill(s) 0 Start Date: 08/06/21 Status: Ordered metFORMIN hydrochloride 500 mg oral tablet (2 sources) Biguanide Start: 12-10-2024 take 1 tablet by mouth once daily metformin 500 mg Tab 500 mg = 1 tab(s), Oral, Daily Start Date: 12/10/24 Status: Ordered Repeat number: 1 Start: 07-17-2024 take 1 tablet by linda th in the morning metFORMIN (GLUCOPHAGE) 500 mg tablet Take 1 tablet (500 mg total) by mouth in the morning. 90 tablet 3 07/17/2024 Active Multivitamin Adult (5 sources) Multivitamin Bruno lt Active Multivitamin preparation (2 sources) Start: 02-21-2023 multivitamin D aily, Refill(s) 0 Start Date: 02/21/23 Status: Ordered Repeat number: 1 Start: 02-21-2023 multivitamin D aily, Refill(s) 0 Start Date: 02/21/23 Status: Ordered opqupyhwuicc-vqqvpoir-zveiqh (MULTIVITAMIN 50 PLUS) tablet (4 sources) multivitamin-min erals-lutein (MULTIVITAMIN 50 PLUS) tablet daily. Active Sodium Phosphate, Dibasic / Sodium Phosphate, Monobasic (11 sources) [facility] t: take 133 mL rectal route once Fleet Enema 133 mL, Rectal, Once, preop Start Date: 08/06/21 Status: Ordered triamcinolone acetonide 1 mg/ml topical cream (1 source) Corticosteroid [facility] t: triamcinolone (KENALOG) 0.1 % cream 04/09/2024 Active Vitamin B Complex oral table t (11 sources) [facility] t: take 1 tablet by mouth once daily Vitamin B Complex oral tablet 1 tab(s), Oral, Daily, Prophylaxis Start Date: 08/06/21 Status: Ordered Vitamin C 100 mg oral tablet , chewable (11 sources) [facility] t: take 1 capsule by mouth once daily [...] procedure, # 2 tab(s), Refills(s) 0, Pharmacy: [facility], 182, cm, 11/18/21 10:56:00 EDT, Height/Length [...] Aleve Not-Taking tadalafil 20 mg oral tablet (14 sources) Phosphodiesterase 5 Inhibitor Start: 02-08-2022 take 1 tablet by mouth once daily Cialis 20 mg Tab 20 mg = 1 tab(s), Oral, Daily, take one tab daily 1 hour prior to sexual activity, # 90 tab(s), Refills(s) 3, [facility]acy: [id number], 182, cm, 02/21/23 16:45:00 EDT, Height/Length Dosing, 96, kg, 02/21/23 16:45:00 EDT, Weight Dosing Start Date: 12/05/23 Status: Ordered Quantity: 90.0 Unit: tab(s) Repeat number: 4 Vitamin D 50,000 intl units (1.25 mg) [...] E 100 intl units oral capsule 100 International_Un it = 1 cap(s), Oral, Daily, Prophylaxis Start Date: 08/06/21 Status: Ordered Problems Active Problems Problem Classification Problem Date Documented Date Episodic/Chronic Cancer of prostate (20 sources) Malignant tumor of prostate; Translations: [Malignant neoplasm of prostate] Onset: 08-17-2021 10-14-2021 Chronic Cancer of prostate (15 sources) Personal history of malignant neoplasm of prostate; Translations: [History of malignant neoplasm of prostate] Onset: 11-09-2021 Episodic Chronic obstructive pulmonary disease and bronchiectasis (4 sources) Chronic obstructive lung disease; Translations: [Chronic obstructive pulmonary disease, unspecified] Onset: 02-15-2017 06-28-2022 Chronic Disorders of lipid metabolism (20 sources) Hypercholesterolemia; Translations: [Pure hypercholesterolemia, unspecified] Onset: 05-18-2019 08-06-2021 Chronic Diverticulosis and diverticulitis (4 sources) Diverticulosis of large intestine; Translations: [Diverticulosis of large intestine without perforation or abscess without bleeding] Onset: 05-01-2019 05-01-2019 Chronic Genitourinary symptoms and ill-defined conditions (20 sources) Post-micturition incontinence ; Translations: [Stress incontinence (female) (male)] Onset: 02-08-2022 07-16-2021 Chronic Genitourinary symptoms and ill-defined conditions (20 sources) Retention of urine; Translations: [Retention of urine, unspecified] Onset: 12-02-2021 Episodic Hyperplasia of prostate (19 sources) Benign prostatic hypertrophy without outflow obstruction; Translations: [Benign prostatic hyperplasia without lower urinary tract symptoms] Onset: 11-09-2021 Chronic Immunizations and screening for infectious disease (1 source) Contact with and (suspected) exposure to other viral communicable diseases Episodic Osteoarthritis (16 sources) Osteoarthritis of knee; Translations: [Unilateral primary osteoarthritis, left knee] Onset: 02-15-2017 Resolved: 04-20-2022 Chronic Other diseases of bladder and urethra (8 sources) Male urethral stricture; Translations: [Unspecified urethral stricture, male, unspecified site] Onset: 11-11-2021 Episodic Other diseases of bladder and urethra (16 sources) Urethral stricture; Translations: [Unspecified urethral stricture, male, unspecified site] Onset: 12-10-2021 11-11-2021 Episodic Other diseases of bladder and urethra (5 sources) Unspecified urethral stricture, male, unspecified site; Translations: [UNSP URETHRAL STRCT MALE UNSP SITE] Onset: 05-15-2022 Episodic Other male genital disorders (6 sources) Male erectile dysfunction, unspecified; Translations: [Erectile dysfunction] Onset: 02-08-2022 Chronic Other male genital disorders (8 sources) Secondary erectile dysfunction; Translations: [Male erectile dysfunction, unspecified] Onset: 06-28-2022 05-17-2022 Chronic Other male genital disorders (17 sources) Atypical small acinar proliferation of prostate; Translations: [Atypical small acinar proliferation of prostate] Onset: 06-28-2022 10-14-2021 Episodic Other nervous system disorders (7 sources) Chronic pain; Translations: [Other chronic pain] Chronic Other nervous system disorders (4 sources) Other chronic pain Onset: 01-26-2022 Resolved: 04-20-2022 Chronic Other nervous system disorders (1 source) Other chronic pain; Translations: [Other chronic pain] Onset: 04-14-2022 Chronic Other nutritional; endocrine; and metabolic disorders (4 sources) High density lipoprotein deficiency ; Translations: [Lipoprotein deficiency] Onset: 05-18-2019 06-28-2022 Chronic Other screening for suspected conditions (not mental disorders or infectious disease) (20 sources) Raised prostate specific antigen; Translations: [Elevated prostate specific antigen [PSA]] Onset: 03-27-2019 Resolved: 06-28-2022 07-16-2021 Episodic Other upper respiratory infections (2 sources) Acute pharyngitis, unspecified; Translations: [Acute upper respiratory infection, unspecified] Episodic Residual codes; unclassified (7 sources) Family history of cancer; Translations: [Family history of malignant neoplasm of prostate] Onset: 11-09-2021 Episodic Residual codes; unclassified (13 sources) Family history of prostate cancer 10-14-2021 Episodic Residual codes; unclassified (1 source) Family history of malignant neoplasm of prostate; Translations: [FAMILY HX MALIG NEOPLASM PROSTATE] Onset: 08-17-2022 Episodic Screening and history of mental health and substance abuse codes (13 sources) Tobacco use and exposure - finding 07-16-2021 Chronic Spondylosis; intervertebral disc disorders; other back problems (2 sources) Cervical disc disorder, unspecified, unspecified cervical region; Translations: [Cervical disc disorder] Onset: 07-17-2024 07-17-2024 Chronic Unclassified (1 source) R97.20 - Elevated prostate specific antigen [PSA]; Translations: [R97.20 - Elevated prostate specific antigen [PSA]] Onset: 07-09-2021 Unclassified (1 source) CONTACT W/AND (SUSP) EXPOS COVID-19; Translations: [CONTACT W/AND (SUSP) EXPOS COVID-19] Onset: 10-12-2021 Unclassified (1 source) Annual Exam Onset: 07-17-2024 Past or Other Problems Problem Classification Problem Date Documented Da te Episodic/Chronic Diabetes mellitus without complication (2 sources) Prediabetes; Translations: [Prediabetes] Onset: 07-17-2024 07-17-2024 Episodic Mood disorders (4 sources) Mood disorders Onset: 11-14-2023 11-14-2023 Other aftercare (1 source) 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; Translations: [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] Onset: 12-03-2021 Episodic Other and unspecified benign neoplasm (4 sources) Hyperplastic polyp of large intestine; Translations: [Polyp of colon] Onset: 05-01-2019 05-01-2019 Episodic Other bone disease and musculoskeletal deformities (1 source) Segmental and somatic dysfunction of cervical region; Translations: [Segmental and somatic dysfunction of cervical region] Onset: 11-14-2023 Episodic Other bone disease and musculoskeletal deformities (1 source) Segmental and somatic dysfunction of thoracic region; Translations: [Segmental and somatic dysfunction of thoracic region] Onset: 11-14-2023 Episodic Other bone disease and musculoskeletal deformities (1 source) Cervical somatic dysfunction; Translations: [Segmental and somatic dysfunction of cervical region] 11-14-2023 Episodic Other bone disease and musculoskeletal deformities (1 source) Somatic dysfunction of thoracic region; Translations: [Segmental and somatic dysfunction of thoracic region] 11-14-2023 Episodic Other ear and sense organ disorders (1 source) Excessive cerumen in ear canal ; Translations: [Impacted cerumen, bilateral] Onset: 07-17-2024 07-17-2024 Episodic Other male genital disorders (1 source) Atypical small acinar proliferation of prostate; Translations: [ATYPICAL SMALL ACINAR PROLIF PROS] Onset: 11-10-2021 Episodic Other non-epithelial cancer of skin (5 sources) Personal history of other malignant neoplasm of skin; Translations: [Basal cell carcinoma of skin] Onset: 05-11-2018 06-28-2022 Episodic Other non-traumatic joint disorders (3 sources) Pain in left knee Onset: 01-26-2022 Resolved: 04-20-2022 Episodic Other nutritional; endocrine; and metabolic disorders (2 sources) Overweight; Translations: [Overweight] Onset: 07-17-2024 11-14-2023 Episodic Screening and history of mental health and substance abuse codes (1 source) Personal history of nicotine dependence; Translations: [PERSONAL HISTORY OF NICOTINE DEPEND] Onset: 12-03-2021 Episodic Spondylosis; intervertebral disc disorders; other back problems (1 source) Neck pain Onset: 11-14-2023 Episodic Unclassified (1 source) Suspected COVID-19 virus infection Z20.822 Unclassified (4 sources) Onset: 05-01-2019 05-01-2019 Viral infection (4 sources) Disease caused by 2019-nCoV; Translations: [COVID-19] Onset: 04-03-2021 06-28-2022 Episodic Viral infection (1 source) COVID-19 Results Test Name Value Interpretation Reference Range Facility Ambulatory Visit Summaryon 0 12-10-2024 Ambulatory Visit Summary Ambulatory Visit Summary ERIC DELGADO :1960 Visit Date:12/10/2024 Ambulatory Visit Instructions Your Diagnosis Personal history of prostate cancer Organic impotence Urethral stricture Family history of prostate cancer Your Care Team Attending Physician - Latrell CHILDERS MD Primary Care Physician - MARCO ANTONIO DENT DO This Is Your Medications List tadalafil (Cialis 20 mg Tab) Contact prescribing physician if questions or concerns atorvastatin (atorvastatin 10 mg Tab) metformin (metformin 500 mg Tab) multivitamin Procedures Performed Cystoscopy (11/11/2021), Radical prostatectomy (10/09/2021), Transrectal biopsy of prostate (08/13/2021), Stripping of lower limb varicose veins (08/2019), Colonoscopy (05/2019), Transrectal biopsy of prostate using ultrasound (US) guidance (06/29/2018), Orchiectomy (1979), Excisional biopsy of basal cell carcinoma, History of hernia repair, Injection of knee joint. Discharge Vitals Temperature (Temporal Artery) 36.8 ???C Heart Rate (Peripheral) 71 Respiratory Rate 16 Blood Pressure 138/73 Height 182 cm Height 72 in Weight 95.4 kg Weight 210.321 lb BMI 28.8 What to do next Scheduled Follow-Up Appointments Tuesday. 2025 2:45 PM EDT With: Latrell CHILDERS MD Where: [facility] [address] [place] [address]- You Need to Schedule the Following Appointments Follow Up with Latrell CHILDERS MD, URL When: Where: [facility] [address], [place] [address]- [phone] Medications What How Much When Instructions Unchanged tadalafil (Cialis 20 mg Tab) 1 Tablets By Mouth Every day take one tab daily 1 hour prior to sexual activity Unchanged atorvastatin (atorvastatin 10 mg Tab) 1 Tablets By Mouth Every day Contact prescribing physician if questions or concerns Unchanged metformin (metformin 500 mg Tab) 1 Tablets By Mouth Every day Contact prescribing physician if questions or concerns Unchanged multivitamin Every day Contact prescribing physician if questions or concerns Allergies No Known Medication Allergies Problems Ongoing - Any problem that you are currently receiving treatment for. Atypical small acinar proliferation of prostate BPH without urinary obstruction Elevated PSA Family history of prostate cancer High blood cholesterol Hx of smoking Organic impotence Personal history of prostate cancer Post-void dribbling Prostate cancer Proteinuria Proteinuria Stress incontinence Urethral stricture Urinary retention Patient Survey You may receive a survey via text or e-mail asking about your office visit. Please share your experience with us by completing your survey. We appreciate your feedback and thank you for choosing us for your care. Education Materials Prostate Cancer Screening Prostate cancer screening is [...] recommendations. In general, screening is recommended if: ??? You are age 50 to 70 and [...] have a 10- to 15-year life expectancy. ??? You are younger than age 50, and [...] In general, screening is not recommended if: ??? You are younger than age 40. ??? You are between the ages of 40 and 49 and you have no risk factors. ??? You are 70 years of age or [...] a protein that is made in the prost (more content not included)... Normal [facility] Urology Office/Clinic Noteon 12-10-2024 Urology Office/Clinic Note Urology Office/Clinic Note Chief Complaint 1 year follow up with PSA HPI Staff 1 year f/u with PSA Dx: personal hx of prostate cancer, organic impotence, urethral stricture and family hx of prostate cancer (brother) Cialis 20mg PRN PSA done 11/29/24 - <0.13 IPSS: 2, SIDNEY: 1 Denies any urological issues History of Present Illness Tests reviewed: reviewed UA, PSA I have reviewed the previous health record information and history for this patient from Dr. Childers. I have reviewed and verified the staff HPI to be accurate for this encounter. Review of Systems PHQ Score Initial Depression Screen Score: 0 SCORE ROS - Provider Constitutional: denies weight loss, denies hot flashes. Eyes: denies eye problems. Gastrointestinal: denies nausea, denies vomiting. Cardiovascular: denies chest pain or angina. Integumentary: no dryness Musculoskeletal: denies musculoskeletal symptoms. ENMT: denies otolaryngeal symptoms. Respiratory: no shortness of breath. Heme/Lymph: denies easy bleeding tendency, denies easy bruising tendency. Psychiatric: no confusion, no anxiety. Genitourinary: See HPI. Physical Exam Vitals & Measurements T: 36.8 ???C(Temporal Artery) HR: 71(Peripheral) RR: 16 BP: 138/73 HT: 72 in HT: 182 cm WT: 210.321 lb WT: 95.4 kg BMI: 28.8 General Appearance: alert, no distress, well nourished, well developed male. Assessment/Plan 1. Personal history of prostate cancer (Z85.46: Personal history of malignant neoplasm of prostate) PSA: 12/31/19 - 4.12 06/03/21 - 5.28 11/05/21 - <0.05 05/13/22 - <0.13 08/11/22 - <0.13 02/16/23 - <0.13 12/02/23 - <0.13 11/29/24 - <0.13 S/p Radical Prostatectomy 10/09/[address] Childers. PSA remains undetectable. Will cont to monitor. UA today negative for blood and infection. Denies gross hematuria. No infections. Using thin pads for protection but does not typically leak. 2. 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 Also has tried a pump. Did not notice a significant difference with this. Offered ICI. Pt prefers to continue with medical management as he is not sexually active at this time. -Cont Cialis prn. Pt to call for refills. 3. Urethral stricture (N35.919: Unspecified urethral stricture, male, unspecified site) S/p Cysto/UD 12/02/21. [1] no problems with stream. empties well. 4. Family history of prostate cancer (Z80.42: Family history of malignant neoplasm of prostate) Brother. [2] Follow-up With When Contact Information NINO BARKLEY, Latrell Ding, URL [facility] [address] [place] [address] [phone] Additional Instructions: 1 yr w/ PSA Patient Education Prostate Cancer Screening I, Miya Cueva, personally scribed for Dr. Childers on 12/10/2024 15:28:09. . Documentation recorded by the scribe, Miya Cueva, accurately reflects the services(s) I performed and decisions made by me. Authenticated by Dr. Childers on 12/10/2024 15:30:03. Problem List/Past Medical History Ongoing Atypical small acinar proliferation of prostate BPH without urinary obstruction Elevated PSA Family history of prostate cancer High blood cholesterol Hx of smoking Organic impotence Personal history of prostate cancer Post-void dribbling Prostate cancer Proteinuria Proteinuria Stress incontinence Urethral stricture Urinary retention [...] mg= 1 tab(s), Oral, Daily, 3 refills metformin 500 mg Tab, 500 mg= 1 tab(s), Oral, Daily multivitamin, Daily Allergies No Known Medication Allergies Social History Alcohol - High Risk, 08/06/2021 Current, Beer, Daily, 08/06/2021 Substance Abuse - Medium Risk, 08/06/2021 Current, Marijuana, 1-2 times per week, 08/06/2021 Tobacco - Denies Tobacco Use, 08/06/2021 Former smoker, quit more than 30 days ago Tobacco Use:. Never Smokeless Tobacco Use:. Cigarettes, Household tobacco concerns: No., 12/10/2024 Family History Cancer: Father. Primary malignant neoplasm of prostate: Brother. Stroke: Mother. Immunizations Vaccine Date Status influenza virus vaccine, inactivated 07/04/2024 Recorded influenza virus vaccine, inactivated 04/26/2023 Recorded influenza virus vaccine, inactivated 05/20/2022 Recorded SARS-CoV-2 (COVID-19) mRNA-1273 vaccine 07/06/2021 Recorded SARS-CoV-2 (COVID-19) Ad26 vaccine 07/2021 Recorded influenza virus vaccine, inactivated 06/15/2021 (more content not included)... Normal [facility] Comment on above: Result Comment: Elec tronically Signed By: Latrell CHILDERS MD\.br\Date and Time Signed: 12/10/24 15:30 EDT\.br\Electronically Co-Signed By: Miya Cueva\.br\Date and Time Co-Signed: 12/10/24 15:28 EDT COVID + FLU Quick Testingon 07-04-2023 SARS-CoV-2 (COVID-19) RNA SIENNA+probe Ql (Unsp spec) Positive [employer] Other COVID + FLU Quick Testing Negative [employer] Other COVID + FLU Quick Testingon 09-09-2022 SARS-CoV-2 (COVID-19) RNA SIENNA+probe Ql (Unsp spec) Negative [employer] Other COVID + FLU Quick Testing Negative [employer] Other Quick Strepon 09-09-2022 S. pyogenes Org specific cx Ql (Throat) Negative [employer] Other Quick Strep [employer] Other COMPREHENSIVE METABOLIC PANE [facility] 12-10-2021 Albumin [Mass/Vol] 4.4 g/dL Normal 3.6-5.1 [facility] Comment on above: Performed By: #### [id number], [id number] #### [facility] [address], [address] [place] [id number] Information Technology Associate: Felipe Miranda MD Albumin/Globulin [Mass ratio] 2.2 {ratio} Normal 1.0-2.5 [facility] Comment on above: Performed By: #### [id number], [id number] #### [facility] of [address], [address] [place] [address] Information Technology Associate: Felipe Miranda MD ALP [Catalytic activity/Vol] 52 U/L Normal 35-144 [facility] Comment on above: Performed By: #### 7 [id number], [id number] #### [facility] of [address], [address] [place] [address] Information Technology Associate: Felipe Miranda MD ALT [Catalytic activity/Vol] 13 U/L Normal 9-46 [facility] Comment on above: Performed By: #### 7 [id number], [id number] #### [facility] of [place] [address] Information Technology Associate: Felipe Miranda MD AST [Catalytic activity/Vol] 18 U/L Normal 10-35 [facility] Comment on above: Performed By: #### 7 600, [id number] #### [facility] of [place] [address] Information Technology Associate: Felipe Miranda MD Bilirubin [Mass/Vol] 0.9 mg/dL Normal 0.2-1.2 [facility] Comment on above: Performed By: #### 7 600, [id number] #### [facility] of [place] [address] [employer] Associate: Felipe Miranda MD BUN/CREATININE RATIO NOT APPLICABLE Normal 6-22 [facility] Comment on above: Performed By: #### 7 600, [id number] #### [facility] [place] [address] [employer] Associate: Felipe Miranda MD Calcium [Mass/Vol] 9.4 mg/dL Normal 8.6-10.3 [facility] Comment on above: Performed By: #### 7 600, [id number] #### [facility] [place] [address] [employer] Associate: Felipe Miranda MD Chloride [Moles/Vol] 108 mmol/L Normal 98-110 [facility] Comment on above: Performed By: #### 7 600, [id number] #### [facility] [place] [address] [employer] Associate: Felipe Miranda MD CO2 [Moles/Vol] 28 mmol/L Normal 20-32 [facility] Comment on above: Performed By: #### 7 600, [id number] #### [facility] [place] [address] [employer] Associate: Felipe Miranda MD Creatinine [Mass/Vol] 0.88 mg/dL Normal 0.70-1.33 [facility] Comment on above: Result Comment: For patients >49 years of age, the reference limit for Creatinine is approximately 13% higher for people identified as -Citizen Of [place]. Performed By: #### 7 600, [id number] #### [facility] [place] [address] [employer] Associate: Felipe Miranda MD eGFR NON-AFR. KITTITIAN 95 mL/min/1.73m2 Normal > OR = 60 [facility] Comment on above: Performed By: #### 7 600, 80615 #### [facility] [place] [address] [employer] Associate: Felipe Miranda MD GFR/1.73 sq M.predicted among blacks MDRD (S/P/Bld) [Vol rate/Area] 110 mL/min/{1.73_m2} Normal > OR = 60 [facility] Comment on above: Performed By: #### 7 600, [id number] #### [facility] [place] [address] [employer] Associate: Felipe Miranda MD Globulin (S) [Mass/Vol] 2.0 g/dL Normal 1.9-3.7 [facility] Comment on above: Performed By: #### 7 600, [id number] #### [facility] [place] [address] [employer] Associate: Felipe Miranda MD Glucose [Mass/Vol] 99 mg/dL Normal 65-99 [facility] Comment on above: Result Comment: Fasting reference interval Performed By: #### 7 600, 51858 #### [facility] of [address], [address] [place] [address] [employer] Associate: Felipe Miranda MD Potassium [Moles/Vol] 5.5 mmol/L High 3.5-5.3 [facility] Comment on above: Performed By: #### 7 600, [id number] #### [facility] of [address], [address] [place] [address] Information Technology Associate: Felipe Miranda MD Protein [Mass/Vol] 6.4 g/dL Normal 6.1-8.1 [facility] Comment on above: Performed By: #### 7 600, 33751 #### [facility] of [address], [address] [place] [address] [employer] Associate: Felipe Miranda MD Sodium [Moles/Vol] 142 mmol/L Normal 135-146 [facility] Comment on above: Performed By: #### 7 600, [id number] #### [facility] of [address], [address] [place] [address] Information Technology Associate: Felipe Miranda MD Urea nitrogen [Mass/Vol] 14 mg/dL Normal 7-25 [facility] Comment on above: Performed By: #### 7 600, 12010 #### [facility] [place] [address] [employer] Associate: Felipe Miranda MD LIPID PANEL, [facility] 11-29 Cholesterol [Mass/Vol] 106 mg/dL Normal <200 [facility] Comment on above: Performed By: #### 7 600, 76022 #### [facility] of [address], [address] [place] [address] [employer] Technology Associate: Felipe Miranda MD Cholesterol in HDL [Mass/Vol] 43 mg/dL Normal > OR = 40 [facility] Comment on above: Performed By: #### 7 600, [id number] #### [facility] of [address], [address] [place] [address] [employer] Associate: Felipe Miranda MD Cholesterol in LDL [Mass/Vol] [...] of LDL-C. Georgi SS et al. AMELIE. 2013;310(87): 4189-2223 (http://education.Enfora/faq/XES965) Performed By: #### 7 600, 47144 #### [facility] [place] [address] [employer] Associate: Felipe Miranda MD Cholesterol.total/C holesterol in HDL [Mass ratio] 2.5 {ratio} Normal <5.0 [facility] Comment on above: Performed By: #### 7 600, 84265 #### [facility] [place] [address] [employer] Associate: Felipe Miranda MD NON HDL CHOLESTEROL 63 mg/dL (calc) Normal <130 [facility] Comment on above: Result Comment: For patients with diabetes plus 1 major ASCVD risk factor, treating to a non-HDL-C goal of <100 mg/dL (LDL-C of <70 mg/dL) is considered a therapeutic option. Performed By: #### 7 600, 47703 #### [facility] [address], [address] [place] [address] Information Technology Associate: Felipe Miranda MD Triglyceride [Mass/Vol] 70 mg/dL Normal <150 [facility] Comment on above: Performed By: #### 7 600, 82497 #### [facility] [place] [address] [employer] Associate: Felipe Miranda MD PRBC LEUKOREDUCEDon 10-12-19 ABO and Rh group Nom (Bld) Cross Match Result Compatible Unit Blood Type O Pos Unit Number [id number] Status Information Released Specimen Exp Date Product ID Red Blood Cells Product Code [id number] Cross Match Result Compatible Unit Blood Type O Pos Unit Number [id number] Status Information Released Specimen Exp Date [id number] Product ID Red Blood Cells Product Code [id number] Normal [facility] Comment on above: Performed By: #### C BC #### [facility] [address] [place] [address] Dr. Florina Humphrey CBC AUTO DIFFon 10-10-2021 BASO # 0.0 103/ul Normal 0.0-0.1 [facility] Comment on above: Performed By: #### C BC #### [facility] [address] [place] [address] Dr. Florina Humphrey Basophils/100 WBC (Bld) 0.1 % Critically low 0.2-2.0 [facility] Comment on above: Performed By: #### C BC #### [facility] [address] [place] [address] Dr. Florina Humphrey EO # 0.0 103/ul Normal 0.0-0.7 [facility] Comment on above: Performed By: #### C BC #### [facility] [address] [place] [address] Dr. Florina Humphrey Eosinophils/100 WBC (Bld) 0.0 % Critically low 0.9-7.0 [facility] Comment on above: Performed By: #### C BC #### [facility] [address] [place] [address] Dr. Florina Humphrey Erythrocyte distribution width (RBC) [Ratio] 12.5 % Normal 11.0-15.0 [facility] Comment on above: Performed By: #### C BC #### [facility] [address] [place] [address] Dr. Florina Humphrey Hematocrit (Bld) [Volume fraction] 25.6 % Critically low 42.0-54.0 [facility] Comment on above: Performed By: #### C BC #### [facility] [address] [place] [address] Dr. Florina Humphrey Hemoglobin (Bld) [Mass/Vol] 8.7 g/dL Critically low 14.0-18.0 [facility] Comment on above: Result Comment: flui ds given Performed By: #### C BC #### [facility] [address] [place] [address] Dr. Florina Humphrey IG # 0.02 10e3/ul Normal 0.00-0.03 [facility] Comment on above: Performed By: #### C BC #### [facility] [address] [place] [address] Dr. Florina Humphrey IG % 0.2 % Normal 0.0-0.5 [facility] Comment on above: Performed By: #### C BC #### [facility] [address] [place] [address] Dr. Florina Humphrey LYMPH # 0.8 103/ul Critically low 1.2-3.8 [facility] Comment on above: Performed By: #### C BC #### [facility] [address] [place] [address] Dr. Florina Humphrey Lymphocytes/100 WBC (Bld) 9.4 % Critically low 20.5-60.0 [facility] Comment on above: Performed By: #### C BC #### [facility] [address] [place] [address] Dr. Florina Humphrey MANUAL DIFF REQ NO Normal [facility] Comment on above: Performed By: #### C BC #### [facility] [address] [place] [address] Dr. Florina Humphrey MCH (RBC) [Entitic mass] 32.1 pg Normal 25.9-34.0 [facility] Comment on above: Performed By: #### C BC #### [facility] [address] [place] [address] Dr. Florina Humphrey MCHC (RBC) [Mass/Vol] 34.0 g/dL Normal 29.9-35.2 [facility] Comment on above: Performed By: #### C BC #### [facility] [address] [place] [address] Dr. Florina Humphrey MCV (RBC) [Entitic vol] 94.5 fL Critically high 80.0-94.0 [facility] Comment on above: Performed By: #### C BC #### [facility] [address] [place] [address] [address] Florina Humphrey MONO # 0.7 103/ul Normal 0.3-0.8 [facility] Comment on above: Performed By: #### C BC #### [facility] [address] [place] [address] [address] Florina Humphrey Monocytes/100 WBC (Bld) 8.3 % Normal 1.7-12.0 [facility] Comment on above: Performed By: #### C BC #### [facility] [address] [place] [address] [address] Florina Humphrey NEUT # 6.9 103/ul Critically high 1.4-6.5 [facility] Comment on above: Performed By: #### C BC #### [facility] [address] [place] [address] Dr. Florina Humphrey Neutrophils/100 WBC (Bld) 82.0 % Critically high 43.0-75.0 [facility] Comment on above: Performed By: #### C BC #### [facility] [address] [place] [address] Dr. Florina Humphrey Platelet mean volume (Bld) [Entitic vol] 10.8 fL Normal 9.5-13.5 [facility] Comment on above: Performed By: #### C BC #### [facility] [address] [place] [address] Dr. Florina Humphrey PLT 191 103/ul Normal 150-450 [facility] Comment on above: Performed By: #### C BC #### [facility] [address] [place] [address] Dr. Florina Humphrey RBC 2.71 106/ul Critically low 4.70-6.10 [facility] Comment on above: Performed By: #### C BC #### [facility] [address] [place] [address] Dr. Florina Humphrey WBC 8.4 103/ul Normal 4.0-11.0 [facility] Comment on above: Performed By: #### C BC #### [facility] [address] [place] [address] [address] Florina Humphrey PROF CHEM 8 (BAS METB)on Anion gap [Moles/Vol] 7.5 mmol/L Normal [facility] Comment on above: Performed By: #### C BC #### [facility] [address] [place] [address] Dr. Florina Humphrey Calcium [Mass/Vol] 6.8 mg/dL Critically low 8.4-10.2 [facility] Comment on above: Performed By: #### C BC #### [facility] [address] [place] [address] [address] Florina Humphrey Chloride [Moles/Vol] 109 mmol/L Critically high 98-107 [facility] Comment on above: Performed By: #### C BC #### [facility] [address] [place] [address] Dr. Florina Humphrey CO2 [Moles/Vol] 25.7 mmol/L Normal 22.0-30.0 [facility] Comment on above: Performed By: #### C BC #### [facility] [address] [place] [address] Dr. Florina Humphrey Creatinine [Mass/Vol] 0.92 mg/dL Normal 0.66-1.25 [facility] Comment on above: Performed By: #### C BC #### [facility] [address] [place] [address] Dr. Florina Humphrey EGFR-AF KITTITIAN >60 Normal >=60 [facility] Comment on above: Performed By: #### C BC #### [facility] [address] [place] [address] Dr. Florina Humphrey EGFR-NON AF KITTITIAN >60 Normal >=60 [facility] Comment on above: Performed By: #### C BC #### [facility] [address] [place] [address] Dr. Florina Humphrey Glucose [Mass/Vol] 130 mg/dL Critically high 74-106 [facility] Comment on above: Performed By: #### C BC #### [facility] [address] [place] [address] [address] Florina Humphrey Potassium [Moles/Vol] 4.2 mmol/L Normal 3.4-5.0 [facility] Comment on above: Performed By: #### C BC #### [facility] [address] [place] [address] [address] Florina Humphrey Sodium [Moles/Vol] 138 mmol/L Normal 137-145 [facility] Comment on above: Performed By: #### C BC #### [facility] [address] [place] [address] Dr. Florina Humphrey Urea nitrogen [Mass/Vol] 17.0 mg/dL Normal 9.0-20.0 [facility] Comment on above: Performed By: #### C BC #### [facility] [address] [place] [address] Dr. Florina Humphrey Urea nitrogen/Creatinine [Mass ratio] 18.5 mg/mg Normal [facility] Comment on above: Performed By: #### C BC #### [facility] [address] [place] [address] Dr. Florina Humphrey CBC AUTO DIFFon 10-09-2021 BASO # 0.0 103/ul Normal 0.0-0.1 [facility] Comment on above: Performed By: #### C BC #### [facility] [address] [place] [address] Dr. Florina Humphrey Basophils/100 WBC (Bld) 0.3 % Normal 0.2-2.0 [facility] Comment on above: Performed By: #### C BC #### [facility] [address] [place] [address] Dr. Florina Humphrey EO # 0.0 103/ul Normal 0.0-0.7 [facility] Comment on above: Performed By: #### C BC #### [facility] [address] [place] [address] Dr. Florina Humphrey Eosinophils/100 WBC (Bld) 0.0 % Critically low 0.9-7.0 [facility] Comment on above: Performed By: #### C BC #### [facility] [address] [place] [address] Dr. Florina Humphrey Erythrocyte distribution width (RBC) [Ratio] 12.5 % Normal 11.0-15.0 [facility] Comment on above: Performed By: #### C BC #### [facility] [address] [place] [address] Dr. Florina Humphrey Hematocrit (Bld) [Volume fraction] 32.6 % Critically low 42.0-54.0 [facility] Comment on above: Performed By: #### C BC #### [facility] [address] [place] [address] Dr. Florina Humphrey Hemoglobin (Bld) [Mass/Vol] 11.0 g/dL Critically low 14.0-18.0 [facility] Comment on above: Performed By: #### C BC #### [facility] [address] [place] [address] Dr. Florina Humphrey IG # 0.07 10e3/ul Critically high 0.00-0.03 [facility] Comment on above: Performed By: #### C BC #### [facility] [address] [place] [address] Dr. Florina Humphrey IG % 0.5 % Normal 0.0-0.5 [facility] Comment on above: Performed By: #### C BC #### [facility] [address] [place] [address] Dr. Florina Humphrey LYMPH # 0.8 103/ul Critically low 1.2-3.8 [facility] Comment on above: Performed By: #### C BC #### [facility] [address] [place] [address] Dr. Florina Humphrey Lymphocytes/100 WBC (Bld) 5.9 % Critically low 20.5-60.0 [facility] Comment on above: Performed By: #### C BC #### [facility] [address] [place] [address] Dr. Florina Humphrey MANUAL DIFF REQ NO Normal [facility] Comment on above: Performed By: #### C BC #### [facility] [address] [place] [address] Dr. Florina Humphrey MCH (RBC) [Entitic mass] 32.4 pg Normal 25.9-34.0 [facility] Comment on above: Performed By: #### C BC #### [facility] [address] [place] [address] Dr. Florina Humphrey MCHC (RBC) [Mass/Vol] 33.7 g/dL Normal 29.9-35.2 [facility] Comment on above: Performed By: #### C BC #### [facility] [address] [place] [address] Dr. Florina Humphrey MCV (RBC) [Entitic vol] 96.2 fL Critically high 80.0-94.0 [facility] Comment on above: Performed By: #### C BC #### [facility] [address] [place] [address] Dr. Florina Humphrey MONO # 0.2 103/ul Critically low 0.3-0.8 [facility] Comment on above: Performed By: #### C BC #### [facility] [address] [place] [address] Dr. Florina Humphrey Monocytes/100 WBC (Bld) 1.5 % Critically low 1.7-12.0 [facility] Comment on above: Performed By: #### C BC #### [facility] [address] [place] [address] Dr. Florina Humphrey NEUT # 11.8 103/ul Critically high 1.4-6.5 [facility] Comment on above: Performed By: #### C BC #### [facility] [address] [place] [address] Dr. Florina Humphrey Neutrophils/100 WBC (Bld) 91.8 % Critically high 43.0-75.0 [facility] Comment on above: Performed By: #### C BC #### [facility] [address] [place] [address] Dr. Florina Humphrey Platelet mean volume (Bld) [Entitic vol] 11.2 fL Normal 9.5-13.5 [facility] Comment on above: Performed By: #### C BC #### [facility] [address] [place] [address] [address] Florina Humphrey PLT 239 103/ul Normal 150-450 [facility] Comment on above: Performed By: #### C BC #### [facility] [address] [place] [address] [address] Florina Humphrey RBC 3.39 106/ul Critically low 4.70-6.10 [facility] Comment on above: Performed By: #### C BC #### [facility] [address] [place] [address] [address] Florina Humphrey WBC 12.8 103/ul Critically high 4.0-11.0 [facility] Comment on above: Performed By: #### C BC #### [facility] [address] [place] [address] Dr. Florina Humphrey PROF CHEM 8 (BAS METB)on Anion gap [Moles/Vol] 12.1 mmol/L Normal [facility] Comment on above: Performed By: #### B MP #### [facility] [address] [place] [address] Dr. Florina Humphrey Calcium [Mass/Vol] 7.3 mg/dL Critically low 8.4-10.2 [facility] Comment on above: Performed By: #### B MP #### [facility] [address] [place] [address] Dr. Florina Humphrey Chloride [Moles/Vol] 103 mmol/L Normal 98-107 [facility] Comment on above: Performed By: #### B MP #### [facility] [address] [place] [address] Dr. Florina Humphrey CO2 [Moles/Vol] 25.2 mmol/L Normal 22.0-30.0 [facility] Comment on above: Performed By: #### B MP #### [facility] [address] [place] [address] Dr. Florina Humphrey Creatinine [Mass/Vol] 1.09 mg/dL Normal 0.66-1.25 [facility] Comment on above: Performed By: #### B MP #### [facility] [address] [place] [address] Dr. Florina Humphrey EGFR-AF KITTITIAN >60 Normal >=60 [facility] Comment on above: Performed By: #### B MP #### [facility] [address] [place] [address] Dr. Florina Humphrey EGFR-NON AF KITT[place]IAN >60 Normal >=60 [facility] Comment on above: Performed By: #### B MP #### [facility] [address] [place] [address] Dr. Florina Humphrey Glucose [Mass/Vol] 187 mg/dL Critically high 74-106 [facility] Comment on above: Performed By: #### B MP #### [facility] [address] [place] [address] Dr. Florina Humphrey Potassium [Moles/Vol] 4.3 mmol/L Normal 3.4-5.0 [facility] Comment on above: Performed By: #### B MP #### [facility] [address] [place] [address] Dr. Florina Humphrey Sodium [Moles/Vol] 136 mmol/L Critically low 137-145 [facility] Comment on above: Performed By: #### B MP #### [facility] [address] [place] [address] Dr. Florina Humphrey Urea nitrogen [Mass/Vol] 17.0 mg/dL Normal 9.0-20.0 [facility] Comment on above: Performed By: #### B MP #### [facility] [address] [place] [address] Dr. Florina Humphrey Urea nitrogen/Creatinine [Mass ratio] 15.6 mg/mg Normal [facility] Comment on above: Performed By: #### B MP #### [facility] [address] [place] [address] Dr. Florina Humphrey Covid-19 PCR (CVDTB)on SARS-CoV-2 (COVID-19) RNA SIENNA+probe Ql (Unsp spec) Not detected Normal NOT DETECTED [facility] Comment on above: Result Comment: This test is not yet approved or cleared by the [place] FDA. When there are no FDA-approved or cleared tests available, and other criteria are met, FDA can make tests available under an emergency access mechanism called an Emergency Use Authorization (EUA). The EUA for this test is supported by the [employer] of Health and Human Service's (HHS's) declaration [...] SARS-CoV-2. Performed By: #### C BC #### [facility] [address] [place] [address] Dr. Florina Humphrey TYPE AND SCREENon 10-06-2021 TYPE AND SCREEN Negative Normal [facility] Comment on above: Performed By: #### C BC #### [facility] [address] [place] [address] Dr. Florina Humphrey CBC AUTO DIFFon 09-28-2021 BASO # 0.1 103/ul Normal 0.0-0.1 [facility] Comment on above: Performed By: #### C BC #### [facility] [address] [place] [address] Dr. Florina Humphrye Basophils/100 WBC (Bld) 0.8 % Normal 0.2-2.0 [facility] Comment on above: Performed By: #### C BC #### [facility] [address] [place] [address] Dr. Florina Humphrey EO # 0.2 103/ul Normal 0.0-0.7 [facility] Comment on above: Performed By: #### C BC #### [facility] [address] [place] [address] Dr. Florina Humphrey Eosinophils/100 WBC (Bld) 3.9 % Normal 0.9-7.0 [facility] Comment on above: Performed By: #### C BC #### [facility] [address] [place] [address] Dr. Florina Humphrey Erythrocyte distribution width (RBC) [Ratio] 12.1 % Normal 11.0-15.0 [facility] Comment on above: Performed By: #### C BC #### [facility] [address] [place] [address] Dr. Florina Humphrey Hematocrit (Bld) [Volume fraction] 44.3 % Normal 42.0-54.0 [facility] Comment on above: Performed By: #### C BC #### [facility] [address] [place] [address] Dr. Florina Humphrey Hemoglobin (Bld) [Mass/Vol] 15.0 g/dL Normal 14.0-18.0 [facility] Comment on above: Performed By: #### C BC #### [facility] [address] [place] [address] Dr. Florina Humphrey IG # 0.01 10e3/ul Normal 0.00-0.03 [facility] Comment on above: Performed By: #### C BC #### [facility] [address] [place] [address] Dr. Florina Humphrey IG % 0.2 % Normal 0.0-0.5 [facility] Comment on above: Performed By: #### C BC #### [facility] [address] [place] [address] Dr. Florina Humphrey LYMPH # 1.6 103/ul Normal 1.2-3.8 [facility] Comment on above: Performed By: #### C BC #### [facility] [address] [place] [address] Dr. Florina Humphrey Lymphocytes/100 WBC (Bld) 24.9 % Normal 20.5-60.0 [facility] Comment on above: Performed By: #### C BC #### [facility] [address] [place] [address] Dr. Florina Humphrey MANUAL DIFF REQ NO Normal [facility] Comment on above: Performed By: #### C BC #### [facility] [address] [place] [address] Dr. Florina Humphrey MCH (RBC) [Entitic mass] 31.6 pg Normal 25.9-34.0 [facility] Comment on above: Performed By: #### C BC #### [facility] [address] [place] [address] Dr. Florina Humphrey MCHC (RBC) [Mass/Vol] 33.9 g/dL Normal 29.9-35.2 [facility] Comment on above: Performed By: #### C BC #### [facility] [address] [place] [address] Dr. Florina Humphrey MCV (RBC) [Entitic vol] 93.5 fL Normal 80.0-94.0 [facility] Comment on above: Performed By: #### C BC #### [facility] [address] [place] [address] Dr. Florina Humphrey MONO # 0.4 103/ul Normal 0.3-0.8 [facility] Comment on above: Performed By: #### C BC #### [facility] [address] [place] [address] Dr. Florina Humphrey Monocytes/100 WBC (Bld) 6.1 % Normal 1.7-12.0 [facility] Comment on above: Performed By: #### C BC #### [facility] [address] [place] [address] Dr. Florina Humphrey NEUT # 4.0 103/ul Normal 1.4-6.5 [facility] Comment on above: Performed By: #### C BC #### [facility] [address] [place] [address] Dr. Florina Humphrey Neutrophils/100 WBC (Bld) 64.1 % Normal 43.0-75.0 [facility] Comment on above: Performed By: #### C BC #### [facility] [address] [place] [address] Dr. Florina Humphrey Platelet mean volume (Bld) [Entitic vol] 10.9 fL Normal 9.5-13.5 [facility] Comment on above: Performed By: #### C BC #### [facility] [address] [place] [address] Dr. Florina Humphrey PLT 228 103/ul Normal 150-450 [facility] Comment on above: Performed By: #### C BC #### [facility] [address] [place] [address] Dr. Florina Humphrey RBC 4.74 106/ul Normal 4.70-6.10 [facility] Comment on above: Performed By: #### C BC #### [facility] [address] [place] [address] Dr. Florina Humphrey WBC 6.2 103/ul Normal 4.0-11.0 [facility] Comment on above: Performed By: #### C BC #### [facility] [address] [place] [address] Dr. Florina Humphrey LIVER PROFILEon 09-28-2021 Albumin [Mass/Vol] 3.9 g/dL Normal 3.5-5.0 [facility] Comment on above: Performed By: #### B MP, LIVER #### [facility] [address] [place] [address] Dr. Florina Humphrey Albumin/Globulin [Mass ratio] 1.3 {ratio} Normal [facility] Comment on above: Performed By: #### B MP, LIVER #### [facility] [address] [place] [address] Dr. Florina Humphrey ALP [Catalytic activity/Vol] 64 U/L Normal 38-126 [facility] Comment on above: Performed By: #### B MP, LIVER #### [facility] [address] [place] [address] Dr. Florina Humphrey ALT [Catalytic activity/Vol] 50 U/L Normal 21-72 [facility] Comment on above: Performed By: #### B MP, LIVER #### [facility] [address] [place] [address] Dr. Florina Humphrey AST [Catalytic activity/Vol] 33 U/L Normal 17-59 [facility] Comment on above: Performed By: #### B MP, LIVER #### [facility] [address] [place] [address] Dr. Florina Humphrey BILI, CONJUGATED 0.1 mg/dL Normal 0.0-0.3 [facility] Comment on above: Performed By: #### B MP, LIVER #### [facility] [address] [place] [address] Dr. Florina Humphrey Bilirubin [Mass/Vol] 0.7 mg/dL Normal 0.2-1.3 [facility] Comment on above: Performed By: #### B MP, LIVER #### [facility] [address] [place] [address] Dr. Florina Humphrey Globulin (S) [Mass/Vol] 3.1 g/dL Normal [facility] Comment on above: Performed By: #### B MP, LIVER #### [facility] [address] [place] [address] Dr. Florina Humphrey Protein [Mass/Vol] 7.0 g/dL Normal 6.1-8.2 The [facility] Comment on above: Performed By: #### B MP, LIVER #### [facility] [address] [place] [address] Dr. Florina Humphrey PROF CHEM 8 (BAS METB)on Anion gap [Moles/Vol] 9.8 mmol/L Normal [facility] Comment on above: Performed By: #### B MP, LIVER #### [facility] [address] [place] [address] Dr. Florina Humphrey Calcium [Mass/Vol] 8.5 mg/dL Normal 8.4-10.2 The [facility] Comment on above: Performed By: #### B MP, LIVER #### [facility] [address] [place] [address] Dr. Florina Humphrey Chloride [Moles/Vol] 104 mmol/L Normal 98-107 [facility] Comment on above: Performed By: #### B MP, LIVER #### [facility] [address] [place] [address] Dr. Florina Humphrey CO2 [Moles/Vol] 31.0 mmol/L Critically high 22.0-30.0 [facility] Comment on above: Performed By: #### B MP, LIVER #### [facility] [address] [address] [address] Florina Humphrey Creatinine [Mass/Vol] 1.00 mg/dL Normal 0.66-1.25 [facility] Comment on above: Performed By: #### B MP, LIVER #### [facility] [address] [address] [address] Florina Humphrey EGFR-AF KITTITIAN >60 Normal >=60 [facility] Comment on above: Performed By: #### B MP, LIVER #### [facility] [address] [address] [address] Florina Humphrey EGFR-NON AF KITTITIAN >60 Normal >=60 [facility] Comment on above: Performed By: #### B MP, LIVER #### [facility] [address] [place] [address] Dr. Florina Humphrey Glucose [Mass/Vol] 115 mg/dL Critically high 74-106 [facility] Comment on above: Performed By: #### B MP, LIVER #### [facility] [address] [place] [address] Dr. Florina Humphrey Potassium [Moles/Vol] 4.8 mmol/L Normal 3.4-5.0 [facility] Comment on above: Performed By: #### B MP, LIVER #### [facility] [address] [place] [address] Dr. Florina Humphrey Sodium [Moles/Vol] 140 mmol/L Normal 137-145 [facility] Comment on above: Performed By: #### B MP, LIVER #### [facility] [address] [place] [address] Dr. Florina Humphrey Urea nitrogen [Mass/Vol] 15.0 mg/dL Normal 9.0-20.0 [facility] Comment on above: Performed By: #### B MP, LIVER #### [facility] [address] [place] [address] Dr. Florina Humphrey Urea nitrogen/Creatinine [Mass ratio] 15.0 mg/mg Normal [facility] Comment on above: Performed By: #### B MP, LIVER #### [facility] [address] [place] [address] Dr. Florina Humphrey PROTIMEon 09-28-2021 INR Coag (PPP) [Relative time] 1.01 {INR} Normal [facility] Comment on above: Performed By: #### P T, PTT #### [facility] [address] [place] [address] Dr. Florina Humphrey INR GUIDELINES SEE BELOW Normal [facility] Comment on above: Result Comment: KYLE RED INR: 2.0 - 3.0 CONDITIONS NOT LISTED BELOW 2.5 - 3.5 FOR PROSTHETIC HEART VALVE REPLACEMENT 2.5 - 3.5 RECURRENT THROMBOSIS Performed By: #### P T, PTT #### [facility] [address] [place] [address] Dr. Florina Humphrey PT Coag (PPP) [Time] 10.9 s Normal 9.0-11.6 [facility] Comment on above: Performed By: #### P T, PTT #### [facility] [address] [place] [address] Dr. Florina Humphrey PTTon 09-28-2021 aPTT Coag (Bld) [Time] 30.8 s Normal 22.3-36.2 [facility] Comment on above: Performed By: #### P T, PTT #### [facility] [address] [place] [address] Dr. Florina Humphrey MR prostate wo/w conon 07-09 MR prostate wo/w con [facility] [place] [address] MRI Report Signed Patient: Eric Delgado MR#: [id number] 9 : 1960 Acct:[id number] Age/Sex: 60 / M ADM Date: 07/09/21 Loc: MR Room: Type: [facility] Attending Dr: Misti Gagnon PA-C Ordering Provider: [...] PM COT by: Carmelo Goldstein MD Diplomate, Citizen Of [place] Board of Rad[employer] Report Completed: Jul 09, 2021 9:11:09 PM COT Transcribed By: 07/10/21741 Dictated By: NON STAFF 07/09/212110 Signed By: 07/10/2143 Normal [facility] COMPREHENSIVE METABOLIC PANE Charles 06-04-2021 Albumin [Mass/Vol] 4.5 g/dL Normal 3.6-5.1 [facility] Comment on above: Performed By: #### 7 600, 5363, [id number] #### [facility] of [address], [address] [place] [address] Information Technology Associate: Felipe Miranda MD Albumin/Globulin [Mass ratio] 1.9 {ratio} Normal 1.0-2.5 [facility] Comment on above: Performed By: #### 7 600, 5363, 77699 #### [facility] of [address], [address] [place] [address] Information Technology Associate: Felipe Miranda MD ALP [Catalytic activity/Vol] 50 U/L Normal 35-144 [facility] Comment on above: Performed By: #### 7 600, 5363, 60492 #### [facility] of [address], [address] [place] [address] Information Technology Associate: Felipe Miranda MD ALT [Catalytic activity/Vol] 19 U/L Normal 9-46 [facility] Comment on above: Performed By: #### 7 600, 5363, 16149 #### [facility] of [address], [address] [place] [address] Information Technology Associate: Felipe Miranda MD AST [Catalytic activity/Vol] 19 U/L Normal 10-35 [facility] Comment on above: Performed By: #### 7 600, 5363, 28620 #### [facility] of [address], [address] [place] [address] Information Technology Associate: Felipe Miranda MD Bilirubin [Mass/Vol] 1.6 mg/dL High 0.2-1.2 [facility] Comment on above: Performed By: #### 7 600, 5363, 70189 #### [facility] of [address], [address] [place] [address] Information Technology Associate: Felipe Miranda MD BUN/CREATININE RATIO NOT APPLICABLE Normal 6-22 [facility] Comment on above: Performed By: #### 7 600, 5363, 67884 #### [facility] [address], [address] [place] [address] Information Technology Associate: Felipe Miranda MD Calcium [Mass/Vol] 9.7 mg/dL Normal 8.6-10.3 [facility] Comment on above: Performed By: #### 7 600, 5363, 38053 #### [facility] of [address], [address] [place] [address] Information Technology Associate: Felipe Miranda MD Chloride [Moles/Vol] 104 mmol/L Normal 98-110 [facility] Comment on above: Performed By: #### 7 600, 5363, 78803 #### [facility] [address], [address] [place] [address] Information Technology Associate: Felipe Miranda MD CO2 [Moles/Vol] 30 mmol/L Normal 20-32 [facility] Comment on above: Performed By: #### 7 600, 5363, 31973 #### [facility] [address], [address] [place] [address] Information Technology Associate: Felipe Miranda MD Creatinine [Mass/Vol] 0.88 mg/dL Normal 0.70-1.33 [facility] Comment on above: Result Comment: For patients >49 years of age, the reference limit for Creatinine is approximately 13% higher for people identified as -Citizen Of [place]. Performed By: #### 7 600, 5363, 52283 #### [facility] [address], [address] [place] [address] Information Technology Associate: Felipe Miranda MD eGFR NON-AFR. KITTITIAN 95 mL/min/1.73m2 Normal > OR = 60 [facility] Comment on above: Performed By: #### 7 600, 5363, 09440 #### [facility] of [address], [address] [place] [address] Information Technology Associate: Felipe Miranda MD GFR/1.73 sq M.predicted among blacks MDRD (S/P/Bld) [Vol rate/Area] 110 mL/min/{1.73_m2} Normal > OR = 60 [facility] Comment on above: Performed By: #### 7 600, 5363, 89263 #### [facility] of [address], [address] [place] [address] Information Technology Associate: Felipe Miranda MD Globulin (S) [Mass/Vol] 2.4 g/dL Normal 1.9-3.7 [facility] Comment on above: Performed By: #### 7 600, 5363, 59503 #### [facility] of [place] [address] Information Technology Associate: Felipe Miranda MD Glucose [Mass/Vol] 112 mg/dL High 65-99 [facility] Comment on above: Result Comment: Fasting reference interval For someone without known diabetes, a glucose value between 100 and 125 mg/dL is consistent with prediabetes and should be confirmed with a follow-up test. Performed By: #### 7 600, 5363, 68392 #### [facility] of [address], [address] [place] [address] Information Technology Associate: Felipe Miranda MD Potassium [Moles/Vol] 5.0 mmol/L Normal 3.5-5.3 [facility] Comment on above: Performed By: #### 7 600, 5363, 29061 #### [facility] of [place] [address] Information Technology Associate: Felipe Miranda MD Protein [Mass/Vol] 6.9 g/dL Normal 6.1-8.1 [facility] Comment on above: Performed By: #### 7 600, 5363, 86671 #### [facility] of [place] [address] Information Technology Associate: Felipe Miranda MD Sodium [Moles/Vol] 140 mmol/L Normal 135-146 [facility] Comment on above: Performed By: #### 7 600, 5363, 86473 #### [facility] of [address] [place] [address] Information Technology Associate: Felipe Miranda MD Urea nitrogen [Mass/Vol] 16 mg/dL Normal 7-25 [facility] Comment on above: Performed By: #### 7 600, 5363, 86940 #### [facility] [address], [address] [place] [address] Information Technology Associate: Felipe Miranda MD LIPID PANEL, [facility] 11-0 Cholesterol [Mass/Vol] 176 mg/dL Normal <200 [facility] Comment on above: Order Comment: FASTI NG:YES FASTING: YES Performed By: #### 7 600, 5363, 38221 #### [facility] [address], [address] [place] [address] Information Technology Associate: Felipe Miranda MD Cholesterol in HDL [Mass/Vol] 39 mg/dL Low > OR = 40 [facility] Comment on above: Order Comment: FASTI NG:YES FASTING: YES Performed By: #### 7 600, 5363, 01829 #### [facility] [address], [address] [place] [address] Information Technology Associate: Felipe Miranda MD Cholesterol in LDL [Mass/Vol] [...] LDL-C. Georgi SCHULZ et al. AMELIE. 2013;310(19): 5332-0456 (http://education.Enovex.StormPins/faq/HMO984) Performed By: #### 7 600, 5363, 91619 #### [facility] [address], [address] [place] [address] Information Technology Associate: Felipe Miranda MD Cholesterol.total/C holesterol in HDL [Mass ratio] 4.5 {ratio} Normal <5.0 [facility] Comment on above: Order Comment: FASTI NG:YES FASTING: YES Performed By: #### 7 600, 5363, 76063 #### [facility] [place] [address] Information Technology Associate: Felipe Miranda MD NON HDL CHOLESTEROL 137 mg/dL (calc) High <130 [facility] Comment on above: Order Comment: FASTI NG:YES FASTING: YES Result Comment: For patients with diabetes plus 1 major ASCVD risk factor, treating to a non-HDL-C goal of <100 mg/dL (LDL-C of <70 mg/dL) is considered a therapeutic option. Performed By: #### 7 600, 5363, 07820 #### [facility] [place] [address] Information Technology Associate: Felipe Miranda MD Triglyceride [Mass/Vol] 244 mg/dL High <150 [facility] Comment on above: Order Comment: FASTI NG:YES FASTING: YES Result Comment: If a non-fasting specimen was collected, consider repeat triglyceride testing on a fasting specimen if clinically indicated. Alexis et al. J. of Clin. Lipidol. 2015;9:129-169. Performed By: #### 7 600, 5363, 73095 #### [facility] [place] [address] Information Technology Associate: Felipe Miranda MD PSA, TOTALon 06-04-2021 PSA, TOTAL 5.28 ng/mL High < OR = 4.00 [facility] Comment on above: Result Comment: The total PSA value from this assay system is standardized against the WHO standard. The test result will be approximately 20% lower when compared to the equimolar-standardized total PSA (Darcy Witherbee). Comparison of serial PSA results should be interpreted with this fact in mind. This test was performed using the Siemens chemiluminescent method. Values obtained from different assay methods cannot be used interchangeably. PSA levels, regardless of value, should not be interpreted as absolute evidence of the presence or absence of disease. Performed By: #### 7 600, 5363, 62955 #### [facility] [address], [address] [place] [address] Information Technology Associate: Felipe Miranda MD Vital Signs Date Time Vital Sign Value Performing Clinician Facility 12-10-2024 14:59-0400 Body temperature 98.24 [degF] Latrell CHILDERS [facility] 12-10-2024 14:59-0400 Diastolic blood pressure 73 mm[Hg] Latrellgeorgina CHILDERS [facility] 12-10-2024 14:59-0400 Heart rate 71 /min Latrellgeorgina CHILDERS [facility] 12-10-2024 14:59-0400 Respiratory rate 16 /min Latrell CHILDERS [facility] 12-10-2024 14:59-0400 Systolic blood pressure 138 mm[Hg] Latrell CHILDERS [facility] 11-14-2023 09:30-0400 Body height 182.9 cm Marco Antonio Emgolong DO Work Phone: [facility] [employer] [facility] 11-14-2023 09:30-0400 Body mass index (BMI) [Ratio] 29.08 kg/m2 Marco Antonio Furlong DO Work Phone: [facility] [facility] 11-14-2023 09:30-0400 Body temperature 98.01 [degF] Marco Antonio Furlong DO Work Phone: [facility] 11-14-2023 09:30-0400 Body weight 97.25 kg Marco Antonio Emgolong DO Work Phone: [facility] 11-14-2023 09:30-0400 Diastolic blood pressure 80 mm[Hg] Marco Antonio Furlong DO Work Phone: [facility] 11-14-2023 09:30-0400 Heart rate 74 /min Marco Antonio Emgolong DO Work Phone: [employer] 11-14-2023 09:30-0400 Respiratory rate 18 /min Marco Antonio Dent DO Work Phone: [employer] 11-14-2023 09:30-0400 SaO2% (BldA) [Mass fraction] 97 % Marco Antonio Dent DO Work Phone: [employer] 11-14-2023 09:30-0400 Systolic blood pressure 122 mm[Hg] Marco Antonio Dent DO Work Phone: [employer] 07-04-2023 11:05-0500 Body height 182.88 cm Annelise Alejandromond Other [employer] Other 07-04-2023 11:05-0500 Body mass index (BMI) [Ratio] 28.72 kg/m2 Annelise Alejandromond Other [employer] Other 07-04-2023 11:05-0500 Body temperature 99.3 [degF] Annelise Alejandromond Other [employer] Other 07-04-2023 11:05-0500 Body weight 96.07 kg Annelise Adame Other [employer] Other 07-04-2023 11:05-0500 Respiratory rate 18 /min Annelise Alejandromond Other [employer] Other 07-04-2023 11:05-0500 SaO2% (BldA) [Mass fraction] 97 % Annelise Alejandromond Other [employer] Other 09-09-2022 13:00-0500 Body height 182.88 cm Fide Dominguez Other [employer] Other 09-09-2022 13:00-0500 Body mass index (BMI) [Ratio] 28.34 kg/m2 Fide Dominguez Other [employer] Other 09-09-2022 13:00-0500 Body temperature 98.5 [degF] Fide Dominguez Other [employer] Other 09-09-2022 13:00-0500 Body weight 94.8 kg Fide Dominguez Other [employer] Other 09-09-2022 13:00-0500 Respiratory rate 18 /min Fide Dominguez Other [employer] Other 09-09-2022 13:00-0500 SaO2% (BldA) [Mass fraction] 99 % Fide Dominguez Other [employer] Other 08-16-2022 15:31-0500 Diastolic blood pressure 76 mm[Hg] Latrell CHILDERS [facility] 08-16-2022 15:31-0500 Heart rate 68 /min Latrell CHILDERS [facility] 08-16-2022 15:31-0500 Respiratory rate 16 /min Latrell CHILDERS [facility] 08-16-2022 15:31-0500 Systolic blood pressure 132 mm[Hg] Latrell CHILDERS [facility] 05-17-2022 12:24-0400 Blood Pressure Location Latrell CHILDERS [facility] 05-17-2022 12:24-0400 Diastolic blood pressure 79 mm[Hg] Latrell CHILDERS [facility] 05-17-2022 12:24-0400 Heart rate 67 /min Latrell CHILDERS [facility] 05-17-2022 12:24-0400 Respiratory rate 16 /min Latrell CHILDERS [facility] 05-17-2022 12:24-0400 Systolic blood pressure 139 mm[Hg] Latrell CHILDERS [facility] 04-20-2022 11:45-0400 Body height 182.88 cm Sheldon Huff Other [employer] Other 04-20-2022 11:45-0400 Body mass index (BMI) [Ratio] 28.72 kg/m2 Sheldon Huff Other [employer] Other 04-20-2022 11:45-0400 Body weight 96.07 kg Sheldon Huff Other [employer] Other 04-20-2022 11:45-0400 Diastolic blood pressure 70 mm[Hg] Sheldon Huff Other [employer] Other 04-20-2022 11:45-0400 SaO2% (BldA) [Mass fraction] 99 % Sheldon Huff Other [employer] Other 04-20-2022 11:45-0400 Systolic blood pressure 120 mm[Hg] Sheldon Huff Other [employer] Other 04-14-2022 11:26-0400 Diastolic blood pressure 84 mm[Hg] DO Marco Antonio Josésteff Work Phone: [facility] 04-14-2022 11:26-0400 Heart rate 64 /min DO Marco Antonio Furlong Work Phone: [facility] 04-14-2022 11:26-0400 Respiratory rate 18 /min DO Marco Antonio Furlong Work Phone: [facility] 04-14-2022 11:26-0400 SaO2% (BldA) [Mass fraction] 100 % DO Marco Antonio Furlong Work Phone: [facility] 04-14-2022 11:26-0400 Systolic blood pressure 150 mm[Hg] DO Marco Antonio Furlong Work Phone: [facility] 04-14-2022 11:04-0400 Inhaled oxygen flow rate 3 L/min DO Marco Antonio Furlong Work Phone: [facility] 04-14-2022 10:34-0400 Body height 182.88 cm DO Marco Antonio Furlong Work Phone: [facility] 04-14-2022 10:34-0400 Body weight 95.25 kg DO Marco Antonio Emgolong Work Phone: [facility] 03-30-2022 11:15-0400 Body height 182.88 cm Sheldon Huff Other [employer] Other 03-30-2022 11:15-0400 Body mass index (BMI) [Ratio] 28.48 kg/m2 Sheldon Huff Other [employer] Other 03-30-2022 11:15-0400 Body weight 95.26 kg Sheldon Huff Other [employer] Other 03-30-2022 11:15-0400 Diastolic blood pressure 80 mm[Hg] Sheldon Huff Other [employer] Other 03-30-2022 11:15-0400 SaO2% (BldA) [Mass fraction] 99 % Sheldon Huff Other [employer] Other 03-30-2022 11:15-0400 Systolic blood pressure 130 mm[Hg] Sheldon Huff Other [employer] Other 03-02-2022 10:15-0400 Body height 182.88 cm Sheldon Huff Other [employer] Other 03-02-2022 10:15-0400 Diastolic blood pressure 70 mm[Hg] Sheldon Huff Other [employer] Other 03-02-2022 10:15-0400 SaO2% (BldA) [Mass fraction] 99 % Sheldon Huff Other [employer] Other 03-02-2022 10:15-0400 Systolic blood pressure 122 mm[Hg] Sheldon Huff Other [employer] Other 02-08-2022 10:12-0400 Blood Pressure Location Latrell CHILDERS [facility] 02-08-2022 10:12-0400 Diastolic blood pressure 64 mm[Hg] Latrell CHILDERS [facility] 02-08-2022 10:12-0400 Heart rate 74 /min Latrell CHILDERS [facility] 02-08-2022 10:12-0400 Systolic blood pressure 134 mm[Hg] Latrellgeorgina CHILDERS [facility] 01-26-2022 11:30-0400 Body height 182.88 cm Sheldon Huff Other [employer] Other 01-26-2022 11:30-0400 Diastolic blood pressure 80 mm[Hg] Sheldon Refugio Other [employer] Other 01-26-2022 11:30-0400 SaO2% (BldA) [Mass fraction] 99 % Sheldon Huff Other [employer] Other 01-26-2022 11:30-0400 Systolic blood pressure 130 mm[Hg] Sheldon Huff Other [employer] Other 11-18-2021 10:55-0400 Blood Pressure Location Latrell CHILDERS [facility] 11-18-2021 10:55-0400 Diastolic blood pressure 85 mm[Hg] Latrellgeorgina [facility] [facility] 11-18-2021 10:55-0400 Heart rate 76 /min Latrell CHILDERS [facility] [place] 11-18-2021 10:55-0400 Systolic blood pressure 130 mm[Hg] Latrell CHILDERS [facility] [place] 11-11-2021 11:55-0400 Blood Pressure Location [facility]ILDERS [facility] 11-11-2021 11:55-0400 Diastolic blood pressure 84 mm[Hg] Latrell CHILDERS [facility] [place] 11-11-2021 11:55-0400 Heart rate 75 /min Latrell CHILDERS [facility] [place] 11-11-2021 11:55-0400 Respiratory rate 16 /min Latrell CHILDERS [facility] [place] 11-11-2021 11:55-0400 Systolic blood pressure 129 mm[Hg] Latrell CHILDERS [facility] [place] 11-09-2021 13:19-0400 Blood Pressure Location Latrell CHILDERS [facility] [place] 11-09-2021 13:19-0400 Diastolic blood pressure 80 mm[Hg] Latrell CHILDERS [facility] [place] 11-09-2021 13:19-0400 Heart rate 71 /min Latrell CHILDERS [facility] [place] 11-09-2021 13:19-0400 Respiratory rate 16 /min [facility]ILDERS [facility] 11-09-2021 13:19-0400 Systolic blood pressure 121 mm[Hg] Latrell CHILDERS [facility] Encounters Encounter Date Encounter Type Care Provider Facility Start: 12-09-2025 ambulatory Latrell CHILDERS Facili ty:[facility] Start: 12-10-2024 End: 12-10-2024 ambulatory Latrellgeorgina CHILDERS Facility:[facility] Start: 12-10-2024 End: 12-10-2024 Patient encounter procedure Latrell CHILDERS [facility] Start: 12-03-2024 End: 12-03-2024 Refill Seb Rick DO Work Phone: [facility] Start: 07-17-2024 End: 07-17-2024 ambulatory [facility] Start: 07-17-2024 Encounter for david l adult medical examination without abnormal findings [facility] Start: 02-26-2024 End: 02-27-2024 Refill [facility] DO Work Phone: [facility] Start: 12-19-2023 End: 12-19-2023 Refill [facility] DO Work Phone: [facility] Comment on above: 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 Start: 12-05-2023 End: 12-05-2023 Patient encounter procedure Latrell CHILDERS [facility] Start: 11-14-2023 End: 11-14-2023 Office outpatient visit 15 minutes [facility] DO Work Phone: [facility] Comment on above: Cervical somatic dys function (Primary Dx); Thoracic region somatic dysfunction; Overweight Start: 11-14-2023 End: 11-14-2023 ambulatory [facility] Start: 07-04-2023 End: 07-04-2023 ambulatory Annelise Adame Other [employer] Other Start: 07-04-2023 Office outpatient vi sit 15 minutes Anneliseargelia Adame [facility] Start: 09-09-2022 End: 09-09-2022 ambulatory Fide Dominguez Other [employer] Other Start: 09-09-2022 Office outpatient vi sit 25 minutes Fide Dominguez [facility] Start: 08-16-2022 End: 08-16-2022 Patient encounter procedure Latrell CHILDERS [facility] Start: 08-11-2022 End: 08-12-[address] LATRELL CHILDERS Facility:[facility] Start: 05-17-2022 End: 05-17-2022 Patient encounter procedure Latrell CHILDERS [facility] Start: 05-13-2022 End: 05-14-[address] LATRELL CHILDERS Facility:[facility] Start: 04-20-2022 End: 04-20-2022 ambulatory Sheldon Huff Other [employer] Other Start: 04-20-2022 Office outpatient vi sit 15 minutes Sheldon Huff [facility] Start: 04-14-2022 (Procedure) Short Sheldon Huff [facility] Start: 04-14-2022 End: 04-14-2022 ambulatory Marco Antonio Ruggierong Facility:[facility] Start: 04-14-2022 End: 04-14-2022 Admission to same day surgery center DO Marco Antonio Dent Work Phone: [facility] Start: 03-30-2022 End: 03-30-2022 ambulatory Sheldon Huff Other [employer] Other Start: 03-30-2022 Office outpatient vi sit 15 minutes Sheldon Refugio [facility] Start: 03-02-2022 End: 03-02-2022 ambulatory Sheldonjorge Huff Other [employer] Other Start: 03-02-2022 Patient encounter procedure Sheldon Huff [facility] Start: 02-08-2022 End: 02-08-2022 Patient encounter procedure Latrell CHILDERS [facility] [place] Start: 02-03-2022 End: 02-04-[address] LATRELL CHILDERS Facility:[facility] Start: 01-26-2022 End: 01-26-2022 ambulatory Sheldonjorge Huff Other [employer] Other Start: 01-26-2022 Office consultation new/estab patient 60 min Sheldon Refugio [facility] Start: 12-25-2021 End: 12-25-2021 Patient encounter procedure [facility]ILDERS [facility] [place] Start: 12-23-2021 End: 12-23-2021 Patient encounter procedure [facility] Start: 12-22-2021 End: 12-22-2021 Patient encounter procedure Latrell CHILDERS [facility] Start: 12-03-2021 End: 12-03-2021 Patient encounter procedure Heraclio DILL [facility] [place] Start: 12-02-2021 End: 12-02-2021 Patient encounter procedure Latrell CHILDERS [facility] [place] Start: 12-02-2021 End: 12-02-[address] MARCO ANTONIO DENT Facility:[facility] Start: 11-18-2021 End: 11-18-2021 Patient encounter procedure Latrell CHILDERS [facility] [place] Start: 11-11-2021 End: 11-11-2021 Patient encounter procedure Latrell CHILDERS [facility] [place] Start: 11-09-2021 End: 11-09-2021 Patient encounter procedure Latrell CHILDERS [facility] Start: 11-05-2021 End: 11-06-[address] LATRELL CHILDERS Facility:[facility] Start: 10-12-2021 Encounter for preprocedural laboratory examination DR LATRELL CHILDERS [facility] Start: 10-09-2021 End: 10-10-2021 Evaluation and management of inpatient DR LATRELL CHILDERS Facility:[facility] Start: 10-06-2021 End: 10-06-[address] LATRELL CHILDERS Facility:[facility] Start: 10-06-2021 End: 10-06-2021 Encounter for preprocedural laboratory examination DR LATRELL CHILDERS Facility:[facility] Start: 09-30-2021 Encounter for preprocedural cardiovascular examination DR LATRELL CHILDERS [facility] Start: 09-30-2021 Encounter for preprocedural laboratory examination DR LATRELL CHILDERS [facility] Start: 09-28-2021 End: 09-29-[address] LATRELL CHILDERS Facility:[facility] Start: 09-28-2021 End: 09-29-2021 Encounter for preprocedural cardiovascular examination DR LATRELL CHILDERS Facility:[facility] Start: 07-09-2021 End: 07-09-2021 ambulatory Misti Gagnon Facility:[facility] Procedures Date Procedure Procedure Detail Performing Clinician Start: 11-14-2023 Adult depression scr eening assessment Marco Antonio Dent DO Work Phone: Start: 08-11-[address] TANISHA CHILDERS Comment on above: Performed By: #### C BC #### [facility] [address] [place] [address] Dr. Florina Humphrey Start: 05-13-[address] TANISHA CHILDERS Comment on above: Performed By: #### P SAD #### [facility] [address] [place] [address] Dr. Florina Humphrey Start: 04-14-2022 Local anesthetic ner ve block in lower limb DO Marco Antonio Dent Work Phone: Start: 02-03-[address] TANISHA CHILDERS Comment on above: Performed By: #### P SAD #### [facility] [address] [place] [address] Dr. Florina Humphrey Start: 11-11-2021 Cystoscopy Latrell YU Start: 11-05-[address] TANISHA CHILDERS Comment on above: Performed By: #### C BC #### [facility] [address] [place] [address] Dr. Florina Humphrey Start: 10-09-2021 Radical prostatectomy Nupur CHILDERS Start: 10-09-2021 Excision of Pelvis Lymphatic, Open Approach DR LATRELL CHILDERS Start: 10-09-2021 Resection of Prostat e, Open Approach DR LATRELL CHILDERS Start: 08-13-2021 Transrectal biopsy o f prostate Latrell CHILDERS Start: 08-01-2019 Stripping of lower l imb varicose veins Latrell CHILDERS Start: 05-01-2019 Colonoscopy Latrell YU Start: 04-20-2019 Colonoscopy Marco Antonio washington DO Work Phone: Start: 06-29-2018 Transrectal biopsy o f prostate using ultrasound guidance Latrell CHILDERS Start: 08-01-1979 Total orchidectomy Christoph CHILDERS Excisional biopsy of basal cell carcinoma Latrell CHILDERS History of hernia repair Liudmila CHILDERS Injection of knee joint Christoph CHILDERS Plan of Treatment Date Care Activity Detail Author Start: 04-20-2029 Screening for malign ant neoplasm of colon Colonoscopy [facility] Start: 04-11-2029 DTaP,Tdap and Td Vac cines (3 - Td or Tdap) DTaP,Tdap and Td Vaccines (3 - Td or Tdap) [facility] Start: 07-18-2025 End: 07-18-2025 Patient encounter procedure 07/18/2025 3:15 PM EST Office Visit [facility] [address] [place] [address] Marco Antonio Dent, DO [address], [place] [address] [facility] Start: 07-17-2025 Adult BMI Screening Adult BMI Screen ing [facility] Start: 07-17-2025 Tobacco Screening Tobacco Screening [facility] Start: 04-01-2025 Influenza vaccination Influenza Vacc ine [facility] Start: 01-02-2025 COVID-19 Vaccine (7 - Moderna risk season) COVID-19 Vaccine (7 - Moderna risk season) [facility] Start: 11-13-2024 Adult BMI Screening Adult BMI Screen ing [facility] Start: 11-13-2024 Depression Screening Depression Scre ening [facility] Start: 11-13-2024 Tobacco Screening Tobacco Screening [facility] Start: 08-01-2024 Administration of varicella zoster vaccine Zoster (Shingles) Vaccine (1 of 2) [facility] Comment on above: Postponed from 12/16 (Patient Refused) Start: 04-20-2024 Screening for malign ant neoplasm of colon Colonoscopy [facility] Start: 04-01-2024 Influenza vaccination Influenza Vacc ine [facility] Start: 11-14-2023 End: 11-13-2024 XR Cervical spine Views X-ray spine cervical 3 views or less Imaging Routine Cervical somatic dysfunction Expected: 11/14/2023, Expires: 11/13/2024 [facility] Work Phone: Comment on above: Expected: 11/14/2023 , Expires: 11/13/2024 Start: 04-01-2023 COVID-19 Vaccine ( season) COVID-19 Vaccine ( season) [facility] Start: 1981 Administration of varicella zoster vaccine Zoster (Shingles) Vaccine (1 of 2) [facility] Start: 1980 Adult BMI Follow Up Plan Adult BMI Follow Up Plan [facility] Patient Education Refugio [facility] Work Phone: Patient referral [facility] Work Phone: Immunizations Immunization Date Immunization Notes Care Provider Camille rizzo 07-04-2024 Influenza Vaccine, Quadrivalent, Adjuvanted Seb Rick DO Work Phone: [facility] 07-04-2024 influenza virus vaccine, unspecified formulation Seb Rick DO Work Phone: [facility] 04-26-2023 Influenza, injectabl e, Madin [place] Canine Kidney, preservative free, quadrivalent Seb Epsteinkiersten DO Work Phone: [facility] 04-26-2023 influenza virus vaccine, unspecified formulation Marco Antonio Dent DO Work Phone: [facility] 05-20-2022 influenza virus vaccine, unspecified formulation Latrell CHILDERS [facility] 05-20-2022 influenza, injectabl e, quadrivalent, preservative free Marco Antonio Furlong DO Work Phone: [facility] [employer] [facility] 07-06-2021 SARS-CoV-2 (COVID-19 ) mRNA-1273 vaccine Form[place] [facility] 07-01-2021 SARS-CoV-2 (COVID-19 ) Ad26 vaccine, recombinant [place] [facility] 06-15-2021 influenza virus vaccine, unspecified formulation [place] [facility] 06-15-2021 Influenza, injectabl e, Madin [place] Canine Kidney, preservative free, quadrivalent Marco Antonio Furlong DO Work Phone: [facility] 12-01-2020 SARS-CoV-2 (COVID-19 ) mRNA-1273 vaccine Form[place] [facility] 11-29-2020 SARS-CoV-2 (COVID-19 ) Ad26 vaccine, recombinant Form[place] [facility] 11-14-2020 SARS-CoV-2 (COVID-19 ) mRNA-[id number] vaccine Form[place] [facility] 10-31-2020 SARS-CoV-2 (COVID-19 ) mRNA-1273 vaccine Form[place] [facility] 10-30-2020 SARS-CoV-2 (COVID-19 ) Ad26 vaccine, recombinant Form[place] [facility] 10-17-2020 SARS-CoV-2 (COVID-19 ) [id number] vaccine [place] [facility] 09-29-2020 influenza virus vaccine, unspecified formulation [place] [facility] 05-18-2019 influenza virus vaccine, unspecified formulation [place] [facility] 05-18-2019 Influenza, injectabl e, Madin [place] Canine Kidney, quadrivalent with preservative Marco Antonio Furlong DO Work Phone: [facility] 04-11-2019 tetanus toxoid, redu tony diphtheria toxoid, and acellular pertussis vaccine, adsorbed [place] [facility] 05-11-2018 influenza virus vaccine, unspecified formulation [place] [facility] 05-11-2018 Influenza, injectabl e, Madin Sima Canine Kidney, preservative free, quadrivalent Marco Antonio Furlong DO Work Phone: [facility] 05-03-2017 tetanus toxoid, redu tony diphtheria toxoid, and acellular pertussis vaccine, adsorbed Marco Antonio Furlong DO Work Phone: [facility] 04-12-2017 influenza virus vaccine, unspecified formulation [place] [facility] 04-12-2017 influenza, seasonal, injectable, preservative free Marco Antonio Furlong DO Work Phone: [facility] 05-12-2016 influenza virus vaccine, unspecified formulation [place] [facility] 05-12-2016 influenza, seasonal, injectable, preservative free Marco Antonio Furlong DO Work Phone: [employer] 05-26-2015 influenza virus vaccine, unspecified formulation Latrell CHILDERS [facility] 05-26-2015 influenza, seasonal, injectable, preservative free Marco Antonio Furlong DO Work Phone: [employer] [facility] Payers Date Payer Category Payer Managed Care Other (unspecified) [facility] [id number] 2022 Self-pay [id number] 2021 Private Health Insurance [id number] 2021 Self-pay 1960 Unknown [id number]. 2.59 1962 Unknown [id number] [id number]. 2.593 1962 Unknown [id number] [id number]. 2.59 1962 Unknown [id number] [id number]. 2.593 1962 Unknown [id number] [id number]. 2.593 1962 Unknown [id number] 2.16.840.1.287025.3.579. 2.593 1962 Unknown [id number] [id number]. 2.593 1962 Unknown [id number] [id number]. 2.593 1962 Unknown [id number] [id number]. 2.1286 1962 Unknown [id number] [id number]. 2.1286 1962 Unknown [id number] [id number]. 2.727 1962 Unknown [id number]. 2.727 1959 Private Health Insurance [id number] Unknown [id number] [id number]. 2.531 Unknown [id number]. 2.531 Social History Date Type Detail Facility Start: 10-19-2021 End: 12-10-2024 Tobacco smoking status Ex-smoker (finding) [facility] Start: 06-28-2022 End: 07-07-2023 Sex Assigned At Male [facility] Start: 1960 Sex Assigned At Male [facility] Tobacco smoking status Never [facility] Start: 08-01-1983 End: 08-01-2003 History of tobacco use Current smoker [facility] Start: 08-01-1983 End: 08-01-2003 History of tobacco use Cigarette Smoker [facility] Start: 06-28-2022 End: 11-14-2023 Cigarettes smoked current (pack per day) - Reported 1 [facility] [employer] [facility] Start: 06-28-2022 Tobacco use and exposure Smoke less tobacco non-user [facility] Start: 11-14-2023 End: 07-17-2024 Alcoholic beverage intake Current drinker of alcohol (finding) [facility] Has the [employer], or [employer] threatened to shut off services in your home in past 12Mo No [facility] [facility] Are you now , , , , never or living with a partner? Never [facility] How often to you hav e a drink containing alcohol? 4 or more times a week [facility] How many standard dr inks containing alcohol do you have on a typical day? 1 or 2 [facility] How often do you hav e 6 or more drinks on 1 occasion? Monthly [facility] Do you feel stress - tense, restless, nervous, or anxious, or unable to sleep at night because your mind is troubled all the time - these days [OSQ] Not at all [facility] Start: 06-28-2022 Alcohol Comment couple beers per day [facility] Start: 1960 Sex assigned at Not on file P [facility] Start: 03-06-2015 End: 05-31-2018 Sex Male (finding) [facility] Sexual Orientation [facility] Goals Date Patient Goal Desired Activity /State Functional Status Date Assessment Result Facility 12-10-2024 Functional Status N/A [facility] 08-16-2022 Functional Status N/A [facility] 05-17-2022 Functional Status N/A [facility] 02-08-2022 Functional Status N/A [facility] Clinical Notes 07-22-2021 to 12-10-2024 Marco Antonio Dent, - 11/14/2023 9:30 AM EDT Note Date & Type Note Facility 12-10-2024 Hospital Discharge instructions Patient Education 12/10/2024 15:24:02 Prostate Cancer Screening Prostate Cancer Screening Prostate [...] treatment? Where to find more information The [place] [employer]: www.cancer.org [place] [employer] Association: www.auanet.org Contact a health care [...] provider. Document Revised: 01/11/2022 Document Reviewed: 01/11/2022 [employer] Patient Education 2023 [employer]. Follow Up Care 12/05/2023 16:08:50 With:NINO BARKLEY, Latrell Ding, URL Address: [facility] [address] [place] [address] [phone] When: Unknown [facility] 12-10-2024 Note Patient Education Oncology Prostate Cancer Screening Prostate [...] recommendations. In general, screening is recommended if: ??? You are age 50 to 70 and [...] have a 10- to 15-year life expectancy. ??? You are younger than age 50, and [...] In general, screening is not recommended if: ??? You are younger than age 40. ??? You are between the ages of 40 and 49 and you have no risk factors. ??? You are 70 years of age or [...] high PSA levels may be caused by: ??? Prostate cancer. ??? An enlarged prostate that is not caused by cancer (benign prostatic hyperplasia, or BPH). This condition is very common in older men. ??? A prostate gland infection (prostatitis) or urinary tract infection. ??? Certain medicines such as male hormones (like [...] you may need more tests, such as: ??? A physical exam to check the size of your prostate gland, if not done as part of screening. ??? Blood and imaging tests. ??? A procedure to remove tissue samples from your prostate gland for testing (biopsy). This is the only way to know for certain if you have prostate cancer. What are the benefits of prostate cancer screening? Screening can help to identify cancer at an early stage, before symptoms start and when the cancer can be treated more easily. ??? There is a small chance that screening [...] Questions to ask your health care provider ??? When should I start prostate cancer screening? What is my risk for prostate cancer? How often do I need screening? What type of screening tests do I need? How do I get my test results? What do my results mean? Do I need treatment? Where to find more information ??? The [place] Cancer Society: www.cancer.org ??? [place] Urological Association: www.auanet.org Contact a health care provider if: ??? You have difficulty urinating. ??? You have pain when you urinate or ejaculate. ??? You have blood in your urine or semen. ??? You have pain in your back or in the area of your prostate. Summary ??? Prostate cancer is a common type of cancer in men. The prostate gland (more content not included)... [facility] 12-05-2023 Hospital Discharge instructions Patient Education 12/05/2023 [...] treatment? Where to find more information The [place] Cancer Society: www.cancer.org [place] U[employer] Association: www.auanet.org Contact a health care [...] provider. Document Revised: 01/11/2022 Document Reviewed: 01/11/2022 [employer] Patient Education 2022 [employer] Follow Up Care 02/21/2023 17:49:19 With:NINO BARKLEY, Latrell Ding, URL Address: [facility] [address] [place] [address]- [phone] When: Unknown [facility] [place] 11-14-2023 History of Present illness Narrative Images from the original note were not included. Subjective Patient ID: Eric Delgado is a 62 y.o. male. Eric presents for neck pain. It has been there a while . It is been months at least. 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 That aggravates it. He has tried Tylenol and salonpas which helps some-mildly. There was no injury. He does not have pain down his arms. It sometimes interferes with sleep. Neck Pain This is a chronic problem. The current episode started more than 1 month ago. The problem occurs constantly. The problem has been unchanged. The pain is associated with nothing. The quality of the pain is described as aching. The pain is at a severity of 7/10. The pain is moderate. Exacerbated by: turning. Stiffness is present All day. He has tried acetaminophen, heat and neck support for the symptoms. The treatment provided mild relief. The following portions of the patient's history were reviewed and updated as appropriate: allergies, current medications, past family history, past medical history, past social history, past surgical history, problem list, and medication reconciliation was completed including current medication and post discharge medication. Review of Systems Constitutional: Negative. Musculoskeletal: Positive for neck pain. Neurological: Negative. Objective Physical Exam Vitals reviewed. Musculoskeletal: Cervical back: Tenderness and bony tenderness present. No swelling, edema, deformity, erythema, signs of trauma, lacerations, rigidity, spasms, torticollis or crepitus. Pain with movement present. Decreased range of motion (Rotation right and side bending right). Thoracic back: Tenderness and bony tenderness present. No swelling, edema, deformity, signs of trauma, lacerations or spasms. Normal range of motion. No scoliosis. Back: Comments: Segmental subluxation of for upper and midthoracic vertebrae Neurological: General: No focal deficit present. Mental Status: He is alert. Sensory: Sensation is intact. Motor: Motor function is intact. Gait: Gait is intact. Deep Tendon Reflexes: Reflex Scores: Tricep reflexes are 2+ on the right side and 2+ on the left side. Bicep reflexes are 1+ on the right side and 1+ on the left side. Brachioradialis reflexes are 2+ on the right side and 2+ on the left side. Assessment/Plan Eric was seen today for neck pain. Diagnoses and all orders for this visit: Cervical somatic dysfunction - X-ray spine cervical 3 views or less; Future Eric's having chronic neck pain without an injury. There are no worrisome symptoms. OMT done to cervical spine with no segmental subluxations corrected. Muscle energy and soft tissue techniques also utilized. Will check an x-ray. Consider physical therapy and pain management. Continue conservative management with Tylenol. He does have ibuprofen 800 at home and will try that as well. Neck exercises given. Thoracic region somatic dysfunction OMT to thoracic spine with for segmental subluxations corrected with HVLA technique. Patient said he felt better after adjustment. documented in this encounter [facility] 07-04-2023 Evaluation note Encounter Date Diagnosis Assessment [...] no improvement in 2 to 3 days [employer] Other 02-09-2023 Evaluation note* Encounter Date Diagnosis [...] other viral communicable diseases (ICD-10 - Z20.828) [employer] Other 01-16-2023 Hospital Discharge instructions Patient Education [...] Follow these instructions at home: Medicines Take nncy-iil-cwmrvtq and prescription medicines only as told by [...] 07/15/2001 Document Revised: 06/30/2018 Document Reviewed: 08/03/2017 [employer] Patient Education 2020 [employer]. Follow Up Care 05/17/2022 13:00:02 With:NINO BARKLEY, Latrell R, URL Address: [facility] [address] , [place] [address]- When: Unknown [facility] 10-17-2022 Hospital Discharge instructions Patient Education [...] Follow these instructions at home: Medicines Take lqua-owp-luvidtr and prescription medicines only as told by [...] 07/15/2001 Document Revised: 06/30/2018 Document Reviewed: 08/03/2017 [employer] Patient Education 2019 [employer]. Follow Up Care 02/08/2022 10:28:49 With:NINO BARKLEY, Latrell Ding, URL Address: [facility] [address], [place] [address]- [phone] When:08/17/2022 Comments:PSA [facility] 09-20-2022 Evaluation note* Encounter [...] - G89.29) Continue with current treatment plan [employer] [facility] Encounter Date Diagnosis Assessment Notes [...] - G89.29) Continue with current treatment plan [employer] Other 08-02-2022 Evaluation note* Encounter Date Diagnosis [...] for the next 2-3 days for pain. [employer] Other 07-11-2022 Hospital Discharge instructions Patient Education [...] 07/18/2006 Document Revised: 04/06/2019 Document Reviewed: 06/17/2017 [employer] Patient Education 2020 [employer]. 02/08/2022 10:16:44 Urethral Stricture Urethral Stricture Urethral [...] reconstructed. Follow these instructions at home: Take cnhs-slx-iongyxk and prescription medicines only as told by [...] 08/13/2016 Document Revised: 02/28/2019 Document Reviewed: 02/28/2019 [employer] Patient Education 2020 [employer]. 02/08/2022 10:16:40 Cancer Screening for Men Cancer [...] if anything looks unusual. Men with a msjkth-xbmh-jmalxv risk for skin cancer may want to see a cash specialist (emanations analysis technician) for an annual body check. Where to find more information National Cancer [place]: https://www.cancer.gov/about-cancer/screening Centers for Disease Control and Prevention: https://www.cdc.gov/cancer/dcpc/prevention/screening.htm Citizen Of [place] Cancer Society: https://www.cancer.org/latest-news/4-butfym-qfaydvmki-pukqm-wzl-sey.html Contact a health care provider if: You [...] 04/14/2017 Document Revised: 04/06/2019 Document Reviewed: 04/14/2017 [employer] Patient Education 2020 [employer]. Follow Up Care 01/04/2022 11:38:18 With:NINO BARKLEY, Latrell R, URL Address: [facility] [address] [place] [address]- [phone] When:Within 3 Month(s) Comments:f/u in 3 months with PSA [facility] 06-28-2022 Evaluation note* Encounter Date Diagnosis Assessment [...] negative findings were considered in medical decision-making. [employer] Other 05-24-2022 Hospital Discharge instructions Patient Education [...] CHILDERS Address: [facility] [address] [place] [place] [address]- Business (1) When:12/25/2021 14:45:07 [facility]05-04-2022 Hospital Discharge instructions Patient Education 12/02/2021 [...] complications. Follow these instructions at home: Take ihyx-uxz-arkjvbq and prescription medicines only as told by [...] 10/24/2001 Document Revised: 06/30/2018 Document Reviewed: 08/19/2017 [employer] Patient Education 2020 [employer] Follow Up Care 12/02/2021 08:33:19 With:NINO BARKLEY, Latrell Ding, URL Address: [facility] [address] , [place] [address]- [facility] (1) When: Unknown [facility] 04-20-2022 Hospital Discharge instructions Patient Education 11/18/2021 [...] who: Are older than age 65. Are -Citizen Of [place]. Are obese. Have a family history of [...] cells. Follow these instructions at home: Take upbg-xvq-rphcrym and prescription medicines only as told by [...] 07/18/2006 Document Revised: 06/30/2018 Document Reviewed: 03/28/2017 [employer] Patient Education 2020 [employer] Follow Up Care 11/11/2021 13:06:30 With:NINO BARKLEY, Latrell Ding, URL Address: [facility] [address] , [place] [address]- [phone] When:01/18/2022 [facility] 04-13-2022 Hospital Discharge instructions Patient Education 11/11/2021 [...] who: Are older than age 65. Are -Citizen [place]. Are obese. Have a family history of [...] cells. Follow these instructions at home: Take ycon-zoq-tzoaddh and prescription medicines only as told by [...] 07/18/2006 Document Revised: 06/30/2018 Document Reviewed: 03/28/2017 [employer] Medical Patient Education 2020 [employer]. Follow Up Care 11/10/2021 10:43:31 With:NINO BARKLEY, Latrell Ding, URL Address: [facility] [address], [place] [address]- [phone] When: Unknown [facility] 04-11-2022 Hospital Discharge instructions Patient Education 11/09/2021 [...] 07/18/2006 Document Revised: 04/06/2019 Document Reviewed: 06/17/2017 [employer] Medical Patient Education 2020 [employer]. 11/09/2021 13:52:18 Cancer Screening for Men Cancer [...] if anything looks unusual. Men with a afbmri-pnhz-rrqraa risk for skin cancer may want to see a cash specialist (emanations analysis technician) for an annual body check. Where to find more information National Cancer [place]: https://www.cancer.gov/about-cancer/screening Centers for Disease Control and Prevention: https://www.cdc.gov/cancer/dcpc/prevention/screening.htm Citizen [place] Cancer Society: https://www.cancer.org/latest-news/0-ixqzsh-emljtrqzr-itnjo-dyx-fvc.html Contact a health care provider if: You [...] 04/14/2017 Document Revised: 04/06/2019 Document Reviewed: 04/14/2017 [employer] Medical Patient Education 2020 [employer]. Follow Up Care 10/19/2021 14:22:44 With:NINO BARKLEY, Latrell Ding, URL Address: [facility] [address] , [place] [address] [phone] When: Unknown Comments:Will schedule Cysto, Pos UD [facility] 03-11-2022 History general Narrative - Reported* Type Description Date Medical History hypercholestolemia Medical History prostate cancer Surgical History prostatectomy d/t cancer 2 Surgical History hernia repair Surgical History testicular removed on the right Hospitalization History see above [employer] Other 03-11-2022 History general Narrative - Reported* Type Description Date Medical History hypercholestolemia Medical History prostate cancer Surgical History prostatectomy d/t cancer 2 Surgical History hernia repair Surgical History testicular removed on the right 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 Hospitalization History see above [employer] Other 02-28-2022 NoteEXAMINATION: XR CHEST 2 V [...] Electronically authenticated by: JOSSY GRACE Date: 2021-09-28 10:01[facility]12-22-2021 Evaluation + Plan note Future Scheduled Tests Laboratory* PT & PTT 07/22/21 * BUN 07/22/21 * Creatinine 07/22/21 * Electrolyte Panel 07/22/21 * CBC w/ Auto Diff 07/22/21 [facility] evaluation + Plan note Future Appointments Appointment Date:11/18/2021 10:30:00 AM Scheduled Provider:Latrell CHILDERS MD Location:[facility] Appointment Type:URO Office Visit Future Scheduled Tests Laboratory* PT & PTT 07/22/21 * BUN 07/22/21 * Creatinine 07/22/21 * Electrolyte Panel 07/22/21 * CBC w/ Auto Diff 07/22/21 [facility] Evaluation + Plan note Future Appointments Appointment Date:01/27/2022 09:45:00 AM Scheduled Provider:Latrell CHILDERS MD Location:[facility] Appointment Type:URO Office Visit Diagnostic Tests Pending * PSA Total 11/18/21 Future Scheduled Tests Laboratory* PT & PTT 07/22/21 * BUN 07/22/21 * Creatinine 07/22/21 * Electrolyte Panel 07/22/21 * CBC w/ Auto Diff 07/22/21 [facility] Evaluation + Plan note Future Appointments Appointment Date:12/03/2021 10:00:00 AM Scheduled Provider: Location:[facility] Appointment Type:URO Nurse Visit Appointment Date:01/27/2022 09:45:00 AM Scheduled Provider:Latrell CHILDERS MD Location:[facility] Appointment Type:URO Office Visit Future Scheduled Tests Laboratory* PT & PTT 07/22/21 * BUN 07/22/21 * Creatinine 07/22/21 * Electrolyte Panel 07/22/21 * CBC w/ Auto Diff 07/22/21 [facility] Evaluation + Plan note Future Appointments Appointment Date:01/27/2022 09:45:00 AM Scheduled Provider:Latrell CHILDERS MD Location:[facility] Appointment Type:URO Office Visit Future Scheduled Tests Laboratory* PT & PTT 07/22/21 * BUN 07/22/21 * Creatinine 07/22/21 * Electrolyte Panel 07/22/21 * CBC w/ Auto Diff 07/22/21 [facility] Evaluation + Plan note Future Appointments Appointment Date:05/17/2022 11:45:00 AM Scheduled Provider:Latrell CHILDERS MD Location:[facility] Appointment Type:URO Office Visit Diagnostic Tests Pending * PSA Total 02/08/22 Future Scheduled Tests Laboratory* PT & PTT 07/22/21 * BUN 07/22/21 * Creatinine 07/22/21 * Electrolyte Panel 07/22/21 * CBC w/ Auto Diff 07/22/21 [facility] evaluation + Plan note Future Appointments Appointment Date:08/16/2022 03:30:00 PM Scheduled Provider:Latrell CHILDERS MD Location:[facility] Appointment Type:URO Office Visit Diagnostic Tests Pending * PSA Total 05/17/22 Future Scheduled Tests Laboratory* PT & PTT 07/22/21 * BUN 07/22/21 * Creatinine 07/22/21 * Electrolyte Panel 07/22/21 * CBC w/ Auto Diff 07/22/21 [facility] evaluation + Plan note Future Appointments Appointment Date:02/21/2023 03:30:00 PM Scheduled Provider:Latrell CHILDERS MD Location:[facility] Appointment Type:URO Office Visit Diagnostic Tests Pending * PSA Total 08/16/22 [facility] evaluation + Plan note Future Appointments Appointment Date:12/10/2024 03:00:00 PM Scheduled Provider:Latrell CHILDERS MD Location:[facility] Appointment Type:URO Office Visit Diagnostic Tests Pending * PSA Total 12/05/23 [facility] evaluation + Plan note Future Appointments Appointment Date:12/09/2025 02:45:00 PM Scheduled Provider:Latrell CHILDERS MD Location:[facility] Appointment Type:URO Office Visit Diagnostic Tests Pending * PSA Total 12/10/24 [facility] evaluation noteNo InformationNosoutheast missouri community treatment center [place] [employer] Other Evaluation noteNo assessment information available [facility] Work Phone: Evaluation note* Diagnosis Primary osteoarthritis of left knee [facility] Diagnosis Cervical somatic dysfunction- Primary Thoracic region somatic dysfunction Nonallopathic lesion of thoracic region, not elsewhere classified Overweight [facility] Narrative No data available for this section [facility] Hospital Discharge instructions No data available for this section [facility] [place] InstructionsNot on filedocumented in this encounter [facility]Not on filedocumented in this encounter [facility]* Attachments The following attachments cannot be sent through Care Everywhere. * Neck Pain Exercises (Maltese) documented in this encounterProMedica Health SystemInstructionsNot on file documented in this encounterProMedica Health SystemProgress note No data available for this section [facility] Summary Purpose Family History Relationship Condition Age at Onset Recorded Date/T davon Not Specified Unknown family medical history Unknown Advance Directives Advance Directive Response Recorded Date/ Time Advance [...] DATE CREATED AUTHOR AUTHOR'S ORGANIZ ATION 04/27/2022 [facility] DATE CREATED AUTHOR AUTHOR'S ORGANIZ ATION 08/18/2022 [facility] DATE CREATED AUTHOR AUTHOR'S ORGANIZ ATION 07/21/2024 [facility] DATE CREATED AUTHOR AUTHOR'S ORGANIZ ATION 12/11/2024 [facility] REASON FOR VISIT (unrecogniz ed section and content) Reason Comments Med Refill Reason Comments Neck Pain Care Team (unrecognized sect ion and content) Personnel Name: MARCO ANTONIO DENT DO Address: [address] [place] [address] [employer]: Team Status: Inactive Member Role Status Dates Marco Antonio Dent DO Primary Care Provider Active Sheldon Huff MD Attending Provider Active Team Status: Active Member Role Status Dates Marco Antonio Dent DO Primary Care Provider Active 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 Specialty Start Date End Date Marco Antonio Dent DO [address], [facility] [place] [address] PCP - General Family Medicine 12/15/18 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 [facility] [employer] [facility]. provides no warranty or guarantee of the accuracy or completeness of information in this document.
== END 2025-02-06 16:36 | disposition home or self-care (01) ==
LOC: RAD 16:36
PROVIDERS: PCP Family Medicine; Visit Provider Family Medicine
DX: S39.012A Strain of muscle, fascia and tendon of lower back, initial encounter (principal); M51.369 Other intervertebral disc degeneration, lumbar region without mention of lumbar back pain or lower extremity pain
CPT/HCPCS: 72100